=== PATIENT | female | born 1945 | race Caucasian/White ===

== ENCOUNTER 2019-06-08 14:02 | Emergency (ER) | payer MEDICARE, OTHER, SELFPAY ==
[2019-06-08 14:32] VITALS: BP 178/87; PULSE 103; RESP 20; TEMP 37.4; O2SAT 100; BMI 36.6
--- NOTE | 2019-06-08 16:19 | ED_ITS ---
Entered by Nahomy Zamora, acting as scribe for Antonio Hodge DO Jun 08, 2019 14:02 HPI - Ear Problem General: Chief complaint: Ear Stated complaint: fever and earache Time Seen by Provider: 06/08/19 16:18 Source: patient Mode of arrival: ambulatory Limitations: no limitations History of Present Illness: HPI Narrative: 73 yo Female presents to ED with complaint of fever and ear pain. Pt states that she has had a fever, feeling crappy, and had an ear ache for about 10 days. Pt states that she has felt heavy in her chest and felt light headed. Pt states that she is an insulin dependent diabetic. Pt states that she is scheduled to have a sciatica injection on Monday. Pt states that her had the flu in April. MD Complaint: ear pain Location: left ear Duration: constant Severity: moderate Relieving factors: nothing Exacerbating factors: nothing Context: recent illness Discharge from ear: no Associated symptoms: Reports ear or mastoid pain and fever(s) Treatment prior to arrival: none Review of Systems General: Reports: 10 or more systems reviewed and unremarkable except in HPI and below Const: Reports: fever ENMT: Reports: ear pain Resp: Denies: shortness of breath, productive cough or non-productive cough Physical Exam Const: COMMON NORMALS: no apparent distress, average body habitus, oriented x3, no limitations, healthy appearing, alert and well nourished HENMT: COMMON NORMALS: normocephalic, head/scalp atraumatic, hearing grossly normal bilaterally, external ears normal, EAC's normal, TM's normal bilaterally, external nose normal, nasal mucous membranes and turbinates normal, moist oral mucous membranes, oropharynx normal, dentition normal and gingiva normal HEAD & SCALP: normocephalic and atraumatic NOSE: external nose normal and nasal mucous membranes and turbinates normal EXTERNAL EAR: Yes external ears normal EXTERNAL AUDITORY CANAL: EAC's normal TYMPANIC MEMBRANE: TM's normal bilaterally Eye: COMMON NORMALS: PERRL, EOMs intact bilaterally, conjunctivae normal, no scleral icterus, no papilledema, normal visual kay by confrontation and fundi normal bilaterally CONJUNCTIVA: Yes conjunctivae normal PUPIL: Yes PERRL DIRECT OPHTHALMOSCOPY: Yes no papilledema and Yes fundi normal bilaterally Neck/C-Spine: COMMON NORMALS: full ROM, no lymphadenopathy, supple, no meningeal signs, no JVD, thyroid normal and no carotid bruits THYROID: thyroid normal Chest: COMMONS NORMALS: inspection of chest normal and palpation of chest normal Resp: COMMON NORMALS: normal respiratory effort, no retractions, no use of accessory muscles and percussion normal; negative for clear to auscultation bilaterally AUSCULTATION: not clear to auscultation bilaterally and rales (fine) bilateral at the base PERCUSSION: percussion normal Cardio: COMMON NORMALS: no JVD, regular rate, regular rhythm, S1 normal heart sound, S2 normal heart sound, no gallops, no clicks, no murmurs, no rub and peripheral pulses 2+ throughout RATE: regular rate RHYTHM: regular rhythm HEART SOUNDS: S1 normal and S2 normal PERIPHERAL PULSES: pulses 2+ throughout GI: COMMON NORMALS: normal to inspection, nondistended, normoactive bowel sounds, soft to palpation, non-tender, no hepatosplenomegaly, no masses and no bruits PALPATION: Yes soft and Yes no hepatosplenomegaly : COMMON NORMALS: Yes no CVA tenderness and Yes external appearance normal BLADDER/KIDNEY EXAM: Yes no CVA tenderness Back/Pelvis: COMMON NORMALS: no CVA tenderness, thoracic and lumbar spine normal to inspection, no thoracic nor lumbar tenderness, thoraco-lumbar ROM normal and straight leg raise negative bilaterally Extremity: COMMON NORMALS: normal to inspection, full ROM, normal capillary refill, no joint enlargement, no clubbing, cyanosis or edema, no calf tenderness and no pedal edema Neuro: COMMON NORMALS: oriented x3 SENSORIUM/ORIENTATION: Yes alert MENINGEAL SIGNS: Yes no meningeal signs Skin: COMMON NORMALS: no rashes or lesions noted, no wounds, skin turgor normal, no jaundice, no petechiae and no mottling GENERAL SKIN EXAM: no rashes or lesions noted and turgor normal Course Vital Signs: Vital signs: Vital Signs Temperature 99.3 F 06/08/19 14:32 Pulse Rate 93 06/08/19 17:17 Respiratory Rate 20 H 06/08/19 14:32 Blood Pressure 150/106 06/08/19 17:17 Pulse Oximetry 96 06/08/19 17:17 MDM - Ear Lab Data: Labs: Lab Results 06/08/19 06/08/19 06/08/19 Range/Units 16:20 17:21 17:21 WBC 7.8 (4.0-10.0) 10^3/ uL RBC 4.21 (4.1-5.3) 10^6/u L Hgb 13.1 (11.5-15.3) g/dL Hct 40.4 (37.0-47.0) % MCV 96.0 (81-99) fL MCH 31.1 (28.0-34.0) pg MCHC 32.4 (30.0-36.0) g/dL RDW 12.0 L (12.1-15.1) % Plt Count 239 (130-400) 10^3/c mm MPV 8.5 (7.4-10.4) fL Neut % (Auto) 71.3 % Lymph % (Auto) 18.0 % Columbia % (Auto) 7.7 % Eos % (Auto) 2.2 % Baso % (Auto) 0.3 % Neut # (Auto) 5.5 (1.8-7.7) 10^3/u L Lymph # (Auto) 1.4 (0.8-4.8) 10^3/u L Columbia # (Auto) 0.6 (0.2-0.9) 10^3/u L Eos # (Auto) 0.2 (0.0-0.8) 10^3/u L Baso # (Auto) 0.0 (0.0-0.1) 10^3/u L Nucleated RBC % (a uto) 0 % Nucleated RBCs # 0.0 /100WBC Sodium 133 L (136-145) mmol/L Potassium 3.8 (3.5-5.1) mmol/L Chloride 90 L (98-107) mmol/L Carbon Dioxide 28 (22-29) mmol/L Anion Gap 18.8 (5-19) BUN 17 (8-23) mg/dL Creatinine 0.8 (0.5-0.9) mg/dL Glucose 136 H (65-115) mg/dL Calculated Osmolal ity 274 L (285-295) mOsm/k g Lactate (0.5-2.2) mmol/L Calcium 10.1 (8.5-10.5) mg/dL Total Bilirubin 0.3 (0.15-1.2) mg/dL AST 20 (0-32) U/L ALT 16 (0-33) U/L Alkaline Phosphata se 70 (35-105) IU/L NT-Pro-B Natriuret Pep 25 (0-125) pg/mL Total Protein 7.4 (6.6-8.7) g/dL Albumin 4.4 (3.5-5.2) g/dL Globulin 3.0 (1.3-4.6) g/dL Urine Color (Yellow) Urine Appearance (CLEAR) Urine pH (5-7) Ur Specific Gravit y (1.005-1.030) Urine Protein (Negative) Urine Glucose (UA) (Normal) Urine Ketones (Negative) Urine Blood (Negative) Urine Nitrate (Negative) Urine Bilirubin (NEGATIVE) Prot Sulfosalicyli c Acd Urine Urobilinogen (Negative) mg/dL Ur Leukocyte Annabel ase (Negative) Influenza Type A A g Negative (Negative) POC Influenza B Ag Negative (Negative) 06/08/19 06/08/19 Range/Units 17:21 17:55 WBC (4.0-10.0) 10^3/ uL RBC (4.1-5.3) 10^6/u L Hgb (11.5-15.3) g/dL Hct (37.0-47.0) % MCV (81-99) fL MCH (28.0-34.0) pg MCHC (30.0-36.0) g/dL RDW (12.1-15.1) % Plt Count (130-400) 10^3/c mm MPV (7.4-10.4) fL Neut % (Auto) % Lymph % (Auto) % Columbia % (Auto) % Eos % (Auto) % Baso % (Auto) % Neut # (Auto) (1.8-7.7) 10^3/u L Lymph # (Auto) (0.8-4.8) 10^3/u L Columbia # (Auto) (0.2-0.9) 10^3/u L Eos # (Auto) (0.0-0.8) 10^3/u L Baso # (Auto) (0.0-0.1) 10^3/u L Nucleated RBC % (a uto) % Nucleated RBCs # /100WBC Sodium (136-145) mmol/L Potassium (3.5-5.1) mmol/L Chloride (98-107) mmol/L Carbon Dioxide (22-29) mmol/L Anion Gap (5-19) BUN (8-23) mg/dL Creatinine (0.5-0.9) mg/dL Glucose (65-115) mg/dL Calculated Osmolal ity (285-295) mOsm/k g Lactate 1.2 (0.5-2.2) mmol/L Calcium (8.5-10.5) mg/dL Total Bilirubin (0.15-1.2) mg/dL AST (0-32) U/L ALT (0-33) U/L Alkaline Phosphata se (35-105) IU/L NT-Pro-B Natriuret Pep (0-125) pg/mL Total Protein (6.6-8.7) g/dL Albumin (3.5-5.2) g/dL Globulin (1.3-4.6) g/dL Urine Color Yellow (Yellow) Urine Appearance Clear (CLEAR) Urine pH 8 H (5-7) Ur Specific Gravit y 1.005 (1.005-1.030) Urine Protein Neg (Negative) Urine Glucose (UA) Norm (Normal) Urine Ketones 1+ H (Negative) Urine Blood Neg (Negative) Urine Nitrate Negative (Negative) Urine Bilirubin Neg (NEGATIVE) Prot Sulfosalicyli c Acd Negative Urine Urobilinogen Norm (Negative) mg/dL Ur Leukocyte Annabel ase Negative (Negative) Influenza Type A A g (Negative) POC Influenza B Ag (Negative) Imaging Data^: CXR: Radiologist's impression: [place] [address] XRay Report Signed Patient: Sadaf Anderson BUnit #: [id number] : 8Acct#:[id number] Age/Sex: 73 / FADM Date: 06/08/19 Loc: ERRoom/Bed: Attending Dr: Ordering Provider/Ordering MD: Antonio Hodge DO Date of Service: 06/08/19 Procedure(s): XR chest 1V portable [id number] Accession Number(s): [id number] Report Number: [id number] PROCEDURE INFORMATION: Exam: XR Chest, 1 View Exam date and time: 06/08/2019 5:16 PM Age: 73 years old Clinical indication: Dyspnea TECHNIQUE: Imaging protocol: XR of the chest Views: 1 view. COMPARISON: CR Chest 1 [place] [id number] 12/03/2018 3:43 PM FINDINGS: Lungs: Unremarkable. No consolidation. Pleural space: Unremarkable. No pleural effusion. No pneumothorax. Heart/Mediastinum: There is cardiomegaly. Bones/joints: No acute abnormality. Osteopenia and moderate degenerative changes are noted in the spine. There are postoperative changes in the lower cervical spine. XR/XR chest 1V portable [id number] IMPRESSION: No acute findings. Dictated By:Sadaf Kohli Signed By:Jonatan Kohli Date/Time:06/08/191808 DD/ 06 Discharge Plan Discharge Patient Disposition: Home, Self-Care Clinical Impression: Otitis externa Qualifiers: Otitis externa type: unspecified type Chronicity: acute Laterality: bilateral Qualified Code(s): H60.503 - Unspecified acute noninfective otitis externa, bilateral Condition: Stable Prescriptions: New kwvkyhoi-pdvoclxzp-DA 3.5-10,000-1 mg/mL-unit/mL-% drops,suspension 4 drp EAR-BOTH Q6H 7 Days Qty: 10 RF: 0 Discharge Orders: Discharge Order (Routine); Ordered 06/08/19 Ordered By: Antonio Hodge Referrals: Lashae Alvarenga MD [Family Provider] - Coding Level of Care Code ED Manufacturing Software Engineer for Chg Fwd Exam Comprehensive The documentation recorded by the Sera dillon Carmen, accurately reflects the service I personally performed and the decisions made by Naveen bahena Donald P, DO Jun 08, 2019 14:02
[2019-06-08 16:29] VITALS: O2SAT 95
--- NOTE | 2019-06-08 16:56 | XRR_ITS ---
PROCEDURE INFORMATION: Exam: XR Chest, 1 View Exam date and time: 06/08/2019 5:16 PM Age: 73 years old Clinical indication: Dyspnea TECHNIQUE: Imaging protocol: XR of the chest Views: 1 view. COMPARISON: CR Chest 1 [place] [id number] 12/03/2018 3:43 PM FINDINGS: Lungs: Unremarkable. No consolidation. Pleural space: Unremarkable. No pleural effusion. No pneumothorax. Heart/Mediastinum: There is cardiomegaly. Bones/joints: No acute abnormality. Osteopenia and moderate degenerative changes are noted in the spine. There are postoperative changes in the lower cervical spine. XR/XR chest 1V portable [id number] IMPRESSION: No acute findings.
--- NOTE | 2019-06-08 17:09 | PC.NURSE ---
portable xray at bedside
[2019-06-08 17:10] LABS: Influenza A by IFA Negative (Negative); Influenza B by IFA Negative (Negative)
[2019-06-08 17:17] VITALS: BP 150/106; PULSE 93; O2SAT 96
[2019-06-08 17:38] LABS: Basophils % 0.3 %; Eosinophils # 0.2 10^3/uL (0.0-0.8); Eosinophils % 2.2 %; Hematocrit 40.4 % (37.0-47.0); Hemoglobin 13.1 g/dL (11.5-15.3); Lymphocytes # 1.4 10^3/uL (0.8-4.8); Mean Corpuscular HGB Conc 32.4 g/dL (30.0-36.0); Mean Corpuscular Hemoglobin 31.1 pg (28.0-34.0); Mean Platelet Volume 8.5 fL (7.4-10.4); Monocytes # 0.6 10^3/uL (0.2-0.9); Monocytes % 7.7 %; Neutrophils # 5.5 10^3/uL (1.8-7.7); Neutrophils % 71.3 %; Nucleated Red Blood Cells % 0 %; Platelet Count 239 10^3/cmm (130-400); Red Blood Count 4.21 10^6/uL (4.1-5.3); White Blood Count 7.8 10^3/uL (4.0-10.0)
[2019-06-08] MEDS: sodium chloride 0.9% 1,000 ML 999 ML IV (17:54)
[2019-06-08 17:56] LABS: Lactate (Lactic Acid level) 1.2 mmol/L (0.5-2.2)
[2019-06-08 18:05] LABS: Alanine Aminotransferase 16 U/L (0-33); Albumin Level 4.4 g/dL (3.5-5.2); Alkaline Phosphatase 70 IU/L (35-105); Anion Gap 18.8 (5-19); Aspartate Amino Transferase 20 U/L (0-32); Blood Urea Nitrogen 17 mg/dL (8-23); Calcium 10.1 mg/dL (8.5-10.5); Carbon Dioxide 28 mmol/L (22-29); Chloride 90 mmol/L (98-107); Glucose 136 mg/dL (65-115); NT Pro B Type Natriuretic Pept 25 pg/mL (0-125); Osmolality Calculated 274 mOsm/kg (285-295); Potassium 3.8 mmol/L (3.5-5.1); Sodium 133 mmol/L (136-145); Total Bilirubin 0.3 mg/dL (0.15-1.2); Total Protein 7.4 g/dL (6.6-8.7)
[2019-06-08 18:06] LABS: Add Urine Microscopic? NO
[2019-06-08 18:17] LABS: Bilirubin Urine Neg (NEGATIVE); Blood Urine Neg (Negative); Glucose Urine UA Norm (Normal); Ketones Urine 1+ (Negative); Leukocyte Esterase Urine Negative (Negative); Nitrate Urine Negative (Negative); Protein Urine Neg (Negative); Specific Gravity, Urine 1.005 (1.005-1.030); Sulfosalicylic Acid Urine Negative; Urine Appearance Clear (CLEAR); Urine Color Yellow (Yellow); Urobilinogen Urine Norm (Negative); pH Urine 8 (5-7)
[2019-06-08 18:52] VITALS: BP 164/92; PULSE 97; RESP 18; O2SAT 95
== END 2019-06-08 18:53 | disposition home or self-care (01) ==
PROVIDERS: Emergency Provider Family Medicine; Family Provider Family Medicine
DX: H60.90 Unspecified otitis externa, unspecified ear (principal); E11.9 Type 2 diabetes mellitus without complications; Z79.4 Long term (current) use of insulin
CPT/HCPCS: 12345; 36415; 71045; 80053; 81003; 83605; 83880; 85025; 87040; 87804; 96360; 99283; J7030

== ENCOUNTER 2019-07-15 07:44 | Outpatient (CLI) | payer MEDICARE, OTHER, SELFPAY ==
--- NOTE | 2019-07-15 08:12 | CT_ITS ---
WS: [id number] CT NECK WITH CONTRAST HISTORY: OTALGIA, LEFT EAR TECHNIQUE: Contiguous 5 mm axial images are performed through the neck with intravenous contrast. Sag ittal and coronal reformats are also submitted. All CT scans at [facility] use at least o ne of these dose optimization techniques: automated exposure control; mA and/or kV adjustment per pat ient size (includes targeted exams where dose is matched to clinical indication); or iterative recons truction. CONTRAST: CONTRAST: Omnipaque 300; 95 mL IV. DLP: 2577.57 mGycm COMPARISON: None available. Nasopharynx, oropharynx, hypopharynx and larynx are unremarkable. No soft tissue masses or abnormal e nhancement. Torus tubarius and fossa of Rosenmuller and parapharyngeal fat are normal. No significant lymphadenopathy is identified. Tired not well seen. No postsurgical changes. May be markedly atrophied. Parotid and submandibular gl ands are negative. Prior anterior cervical fusion with interbody spacer at C6-7. Mild degenerative changes of the cervic al spine. 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 Intracranial moderate chronic microvascular ischemic changes noted around the ventricles. Orbits and globes are negative. Visualized paranasal sinuses and mastoid air cells are normal. Lung apices are clear. CT/CT neck w con* [id number] IMPRESSION: 1. No neck mass or adenopathy. 2. No abnormality noted near the LEFT internal auditory canal.
[2019-07-15] MEDS: iohexol 300 mg/mL 100 mL Btl IV (08:40)
== END 2019-07-15 07:45 | disposition home or self-care (01) ==
LOC: RADWPI 07:51
PROVIDERS: Family Provider Family Medicine; PCP Family Medicine; Visit Provider Specialist
DX: H92.02 Otalgia, left ear (principal)
CPT/HCPCS: 70491; Q9967

== ENCOUNTER 2019-10-24 12:35 | Outpatient (CLI) | payer MEDICARE, OTHER, SELFPAY ==
--- NOTE | 2019-10-24 12:54 | MM_ITS ---
WS: [id number] BILATERAL DIGITAL SCREENING MAMMOGRAPHY WITH CAD CLINICAL INFORMATION: SCREEN HISTORY: Screening mammogram. No current complaints. COMPARISON: TECHNIQUE: Bilateral CC and MLO views. FINDINGS: Scattered fibroglandular densities bilaterally. No suspicious focal mass, asymmetry, calcifications, or architectural distortion. No evidence of malignancy. Punctate and lucent centered calcifications. MM/[place] [id number] IMPRESSION: BI-RADS: 2-Benign FOLLOW UP: 1 Year Follow-up Recommend return to annual screening mammography.
== END 2019-10-24 12:36 | disposition home or self-care (01) ==
LOC: RADSHAW 12:37
PROVIDERS: PCP Family Medicine; Visit Provider Family Medicine
DX: Z12.31 Encounter for screening mammogram for malignant neoplasm of breast (principal)
CPT/HCPCS: 77067

== ENCOUNTER 2020-02-26 14:47 | Outpatient (CLI) | payer MEDICARE, OTHER, SELFPAY ==
--- NOTE | 2020-02-26 14:54 | XR_ITS ---
WS: [id number] Bone mineral density performed on a IsofluxXA, 02/26/2020 Clinical data: ASYMPTOMATIC MENOPAUSAL STATE Comparison study: DEXA scan, 07/27/2017. Findings: The bone mineral density of the left radius was 0.798 g/sq cm for a young adult T score of -0.9. Measurement of the left hip reveals a bone mineral density of 0.831 g/cm2 with a young adult T score of -1.4. Measurement of the right hip reveals the bone mineral density of 0.841 g/cm2 for young adult T score of -1.3. XR/XR DEXA axial skeleton* [id number] Impression: 1. The bone mineral density of the left radius is normal and the prior study di d not include the measurements of the left radius. 2. The bone mineral density of left hip shows osteopenia which is slightly bett er than the prior study. 3. The bone mineral density of the right hip shows osteopenia which is the same as the prior study.
== END 2020-02-26 14:48 | disposition home or self-care (01) ==
LOC: RADWPI 14:51
PROVIDERS: PCP Family Medicine; Visit Provider Family Medicine
DX: Z78.0 Asymptomatic menopausal state (principal); M85.89 Other specified disorders of bone density and structure, multiple sites
CPT/HCPCS: 77080

== ENCOUNTER 2020-12-16 10:34 | Outpatient (CLI) | payer MEDICARE, OTHER, SELFPAY ==
--- NOTE | 2020-12-16 10:41 | MM_ITS ---
WS: [id number] Bilateral screening digital mammogram, 12/16/2020 Clinical Data: SCREENING Comparison: 10/24/2019 10/09/2018, 09/07/2017, 07/13/2016, 04/30/2015, 04/23/2014, 11/01/2012, 10/25/2011, 10/04. Findings: The breast parenchymal pattern shows glandular tissue. No spiculated masses or clustered calcificatio ns are seen. There are no secondary signs of carcinoma. MM/[place] [id number] Impression: 1. Negative bilateral mammogram unchanged. 2. Recommend annual screening mammograms. BIRADS: 1-Negative FOLLOW UP: 1 Year Follow-up The CAD sample checker was used.
== END 2020-12-16 10:35 | disposition home or self-care (01) ==
LOC: RADSHAW 10:38
PROVIDERS: PCP Family Medicine; Visit Provider Family Medicine
DX: Z12.31 Encounter for screening mammogram for malignant neoplasm of breast (principal)
CPT/HCPCS: 77067

== ENCOUNTER 2021-01-11 10:07 | Emergency (ER) | payer MEDICARE, OTHER, SELFPAY ==
--- NOTE | 2021-01-11 10:11 | XRR_ITS ---
PROCEDURE INFORMATION: Exam: XR Chest Exam date and time: 01/11/2021 10:11 AM Age: 75 years old Clinical indication: Cough and dyspnea; Additional info: Dyspnea/cough TECHNIQUE: Imaging protocol: XR of the chest. Views: 1 view. Total images: 1 COMPARISON: CR XR chest 1V portable [id number] 06/08/2019 5:03 PM FINDINGS: Lungs: Unremarkable. No consolidation. Pleural spaces: Unremarkable. No pleural effusion. No pneumothorax. Heart/Mediastinum: Unremarkable. No cardiomegaly. Bones/joints: Spinal fusion hardware noted. Vertebroplasties now noted. Soft tissues: Soft tissue anchor in the left humeral head. XR/XR chest 1V portable [id number] IMPRESSION: No acute cardiopulmonary process. Radiation Dose CTDIVOL = (mGy): DLP = (mGy-cm)
--- NOTE | 2021-01-11 10:12 | ECG_ITS ---
[facility] Test Date: 2021-01-11 Pat Name: Sadaf Anderson Department: Room: Gender: Female Avp: : 1945 Requested By: Christopher Lester Order Number: [id number] Huy MD: Hyacinth Oliveira M.D. Measurements Intervals Drummond Rate: 105 P: 18 AL: 151 QRS: 4 QRSD: 80 T: 28 QT: 338 QTc: 448 Interpretive Statements SINUS TACHYCARDIA LOW QRS VOLTAGE IN PRECORDIAL LEADS [QRS DEFLECTION < 1.0 mV IN CHEST LEADS] NONSPECIFIC T-WAVE ABNORMALITY Compared to ECG 12/03/2018 18:43:06 T-wave abnormality now present Electronically Signed On 01-11-2021 19:19:02 CDT by Hyacinth Oliveira M.D. [email or web address]
[2021-01-11 10:21] VITALS: BP 129/82; PULSE 105; RESP 19; TEMP 37.2; O2SAT 92; BMI 38.4
--- NOTE | 2021-01-11 10:28 | W.ED.SOB ---
HPI - SOB/Dyspnea General: Chief Complaint: Shortness of Breath/Dyspnea Stated Complaint: SOB W/EXERTION,WEAKNESS,SORE THROAT,BACK PAIN Time Seen by Provider: 01/11/21 10:08 History of Present Illness: HPI Narrative: 75-year-old female presents to the emergency room with shortness of breath weakness sore throat low-grade fever for the last week or more. She is not had any chest pain. Patient is diabetic. She does have a low-grade fever on arrival here today and is mildly hypoxic with sats around 90 on room air she does not usually wear oxygen sats improved to the upper 90s with 2 L/min by nasal cannula. Patient has been vaccinated for Covid was tested a week ago and was negative. MD elicited complaint: shortness of breath and cough Pertinent past history: diabetes Onset (ago): week(s) Context: recent illness Timing: intermittent Severity: mild Exacerbating factors: coughing Relieving factors: nothing Known history of: diabetes Associated symptoms: Deny abdominal pain, chest congestion, chest pain, cough, diaphoresis, dizziness, extremity pain, fever(s), hemoptysis, lightheadedness, myalgias, nausea, orthopnea, palpitations, paresthesias, polydipsia, polyuria, rash, sense of impending doom, syncope or vomiting Treatment prior to arrival: none Review of Systems Const: Denies: fever(s) or diaphoresis ENMT: Denies: throat pain, ear or mastoid pain, nasal discharge or nasal congestion Card: Denies: chest pain, palpitations, lightheadedness, syncope or orthopnea Resp: Denies: hemoptysis or chest congestion GI: Denies: abdominal pain, nausea or vomiting : Denies: flank pain, difficulty voiding, dysuria, urinary frequency or urinary urgency Musc: Denies: extremity pain Skin/Breast: Denies: rash or pruritus Neuro: Denies: dizziness Endo: Denies: polyuria or polydipsia Physical Exam Const: COMMON NORMALS: no acute distress GENERAL APPEARANCE: cooperative and comfortable ORIENTATION/CONSCIOUSNESS: Yes awake, Yes oriented to person, Yes oriented to place and Yes oriented to time HENMT: COMMON NORMALS: normocephalic, atraumatic and hearing grossly normal bilaterally HEAD & SCALP: normocephalic and atraumatic Neck/C-Spine: COMMON NORMALS: no JVD Resp: COMMON NORMALS: normal respiratory effort, No retractions, No use of accessory muscles and clear to auscultation bilaterally AUSCULTATION: clear to auscultation bilaterally Cardio: COMMON NORMALS: no JVD, regular rate, regular rhythm and No murmurs present (Cardio) RATE: regular rate RHYTHM: regular rhythm GI: COMMON NORMALS: Soft to palpation and No hepatosplenomegaly present AUSCULTATION: Yes normoactive bowel sounds PALPATION: Yes Soft to palpation, No Tenderness to palpation present (GI), No Guarding due to palpation present (GI) and Yes No hepatosplenomegaly present Extremity: COMMON NORMALS: normal to inspection, capillary refill normal, no clubbing, cyanosis or edema, no calf tenderness and no pedal edema Neuro: SENSORIUM/ORIENTATION: Yes oriented to person, Yes oriented to place and Yes oriented to time Skin: COMMON NORMALS: no rashes or lesions noted GENERAL SKIN EXAM: no rashes or lesions noted Course Vital Signs: Vital signs: Vital Signs Temperature 99.0 F 01/11/21 10:21 Pulse Rate 97 01/11/21 12:43 Respiratory Rate 20 H 01/11/21 14:13 Blood Pressure 150/58 01/11/21 14:13 Pulse Oximetry 94 01/11/21 14:24 MDM - SOB/Dyspnea MDM Narrative: Medical decision making narrative: Labs and imaging completed reviewed on the chart no significant findings. Home oxygen test patient maintain sats in the low 90s I think that is her baseline. Awaiting a PCR if the Covid PCR is negative then she will need a Lexiscan sestamibi stress test return if she has problems. Lab Data: Labs: Lab Results 01/11/21 01/11/21 01/11/21 10:35 10:35 10:35 WBC 11.7 10^3/uL H 10 ^3/uL (4.0-10.0) RBC 3.78 10^6/uL L 10 ^6/uL (4.1-5.3) Hgb 12.3 g/dL g/dL (11.5-15.3) Hct 38.4 % % (37.0-47.0) MCV 101.6 fl H fl (81-99) MCH 32.5 pg pg (28.0-34.0) MCHC 32.0 g/dL g/dL (30.0-36.0) RDW 12.9 % % (12.1-15.1) Plt Count 213 10^3/cmm 10^3 /cmm (130-400) MPV 8.4 fL fL (7.4-10.4) Neut % (Auto) 47.4 % % Lymph % (Auto) 37.9 % % [place] % (Auto) 9.5 % % Eos % (Auto) 1.9 % % Baso % (Auto) 0.6 % % Neut # (Auto) 5.57 10^3/uL 10^3 /uL (1.8-7.7) Lymph # (Auto) 4.5 10^3/uL 10^3/ uL (0.8-4.8) [place] # (Auto) 1.1 10^3/uL H 10^ 3/uL (0.2-0.9) Eos # (Auto) 0.2 10^3/uL 10^3/ uL (0.0-0.8) Baso # (Auto) 0.1 10^3/uL 10^3/ uL (0.0-0.1) Nucleated RBC % (a uto) 0 % % Nucleated RBCs # 0.0 /100WBC /100W BC Specimen Type Sample Site ABG pH ABG pCO2 ABG pO2 ABG HCO3 ABG O2 Saturation ABG Base Excess Marlon Test A-a O2 Gradient Hematocrit Hgb O2 Saturation Carboxyhemoglobin Methemoglobin Total Hemoglobin Ionized Calcium O2 Delivery Device O2 Liters/Min FiO2 Satellite Communications Engineer ID Sodium 138 mmol/L mmol/L (136-145) Potassium 4.1 mmol/L mmol/L (3.5-5.1) Chloride 99 mmol/L mmol/L (98-107) Carbon Dioxide 25 mmol/L mmol/L (22-29) Anion Gap 18.1 (5-19) BUN 11 mg/dL mg/dL (8-23) Creatinine 0.5 mg/dL mg/dL (0.5-0.9) GFR Calculation Not Reportable Glucose 114 mg/dL mg/dL (65-115) Calculated Osmolal ity 286 mOsm/kg mOsm/ kg (285-295) Calcium 9.1 mg/dL mg/dL (8.5-10.5) Total Bilirubin 0.2 mg/dL mg/dL (0.15-1.2) AST 23 U/L U/L (0-32) ALT 28 U/L U/L (0-33) Alkaline Phosphata se 69 IU/L IU/L (35-105) Creatine Kinase 49 U/L U/L (26-192) Troponin T Baselin e 13 ng/L H ng/L (0-10) Troponin T 120 Min [place] Troponin T Total Protein 6.4 g/dL L g/dL (6.6-8.7) Albumin 3.6 g/dL g/dL (3.5-5.2) Globulin 2.8 g/dL g/dL (1.3-4.6) Urine Color Urine Appearance Urine pH Ur Specific Gravit y Urine Protein Urine Glucose (UA) Urine Ketones Urine Blood Urine Nitrate Urine Bilirubin Urine Urobilinogen Ur Leukocyte Annabel ase SARS-CoV-2 Ag (Rap id) 01/11/21 01/11/21 01/11/21 10:45 10:45 11:57 WBC RBC Hgb Hct MCV MCH MCHC RDW Plt Count MPV Neut % (Auto) Lymph % (Auto) [place] % (Auto) Eos % (Auto) Baso % (Auto) Neut # (Auto) Lymph # (Auto) [place] # (Auto) Eos # (Auto) Baso # (Auto) Nucleated RBC % (a uto) Nucleated RBCs # Specimen Type Arterial Sample Site Radial, right ABG pH 7.44 (7.35-7.45) ABG pCO2 45.4 mmHg H mmHg (35-45) ABG pO2 92.0 mmHg mmHg (80.0-100.0) ABG HCO3 31.0 mmol/L H mmo l/L (22-26) ABG O2 Saturation 95.6 ABG Base Excess 6.1 mmol/L H mmol /L (-2.0-2.0) Marlon Test Pos A-a O2 Gradient 6.8 mmHg mmHg (5-10) Hematocrit 37.8 % % (37-47) Hgb O2 Saturation 95.2 % % (95-100) Carboxyhemoglobin < 0.0 %THgb L %TH gb (0.4-20.1) Methemoglobin 0.5 % % (0.4-1.5) Total Hemoglobin 12.3 g/dL g/dL (12-16) Ionized Calcium 1.2 mmol/L mmol/L (1.1-1.4) O2 Delivery Device Nc O2 Liters/Min 2.0 % % FiO2 28.0 % % Satellite Communications Engineer ID [place] Sodium 140.0 mmol/L mmol /L (131-143) Potassium 3.9 mmol/L mmol/L (3.5-5.0) Chloride Carbon Dioxide Anion Gap BUN Creatinine GFR Calculation Glucose 119.0 mg/dL H mg/ dL (70-115) Calculated Osmolal ity Calcium Total Bilirubin AST ALT Alkaline Phosphata se Creatine Kinase Troponin T Baselin e Troponin T 120 Min [place] Troponin T Total Protein Albumin Globulin Urine Color Yellow (Yellow) Urine Appearance Clear (CLEAR) Urine pH 5 (5-7) Ur Specific Gravit y 1.020 (1.005-1.030) Urine Protein Neg (Negative) Urine Glucose (UA) Norm (Normal) Urine Ketones 2+ H (Negative) Urine Blood Neg (Negative) Urine Nitrate Negative (Negative) Urine Bilirubin Neg (Negative) Urine Urobilinogen Norm mg/dL mg/dL (Negative) Ur Leukocyte Annabel ase Negative (Negative) SARS-CoV-2 Ag (Rap id) Negative (Negative) 01/11/21 12:50 WBC RBC Hgb Hct MCV MCH MCHC RDW Plt Count MPV Neut % (Auto) Lymph % (Auto) [place] % (Auto) Eos % (Auto) Baso % (Auto) Neut # (Auto) Lymph # (Auto) [place] # (Auto) Eos # (Auto) Baso # (Auto) Nucleated RBC % (a uto) Nucleated RBCs # Specimen Type Sample Site ABG pH ABG pCO2 ABG pO2 ABG HCO3 ABG O2 Saturation ABG Base Excess Marlon Test A-a O2 Gradient Hematocrit Hgb O2 Saturation Carboxyhemoglobin Methemoglobin Total Hemoglobin Ionized Calcium O2 Delivery Device O2 Liters/Min FiO2 Satellite Communications Engineer ID Sodium Potassium Chloride Carbon Dioxide Anion Gap BUN Creatinine GFR Calculation Glucose Calculated Osmolal ity Calcium Total Bilirubin AST ALT Alkaline Phosphata se Creatine Kinase Troponin T Baselin e Troponin T 120 Min [place] 12.00 ng/L H ng/L (0-10) Delta Troponin T -1.00 ABS# L ABS# (0-10) Total Protein Albumin Globulin Urine Color Urine Appearance Urine pH Ur Specific Gravit y Urine Protein Urine Glucose (UA) Urine Ketones Urine Blood Urine Nitrate Urine Bilirubin Urine Urobilinogen Ur Leukocyte Annabel ase SARS-CoV-2 Ag (Rap id) Discharge Plan Discharge Patient Disposition: Home Clinical Impression: Viral URI Condition: Stable Prescriptions: No Action tizanidine 4 mg tablet 4 mg PO BEDTIME RF: 0 levothyroxine 300 mcg tablet 300 mcg PO QAM RF: 0 ondansetron HCl 4 mg tablet 4 mg PO Q6H PRN (Reason: Nausea And Vomiting) RF: 0 hydrocodone-acetaminophen 10-325 mg tablet 1 tab PO QID PRN (Reason: Pain) RF: 0 Aspir-81 81 mg Tablet,Delayed Release (Dr/Ec) 81 mg PO BEDTIME RF: 0 pramipexole 0.5 mg tablet 0.5 mg PO BEDTIME RF: 0 FeroSul 325 mg (65 mg iron) tablet 325 mg PO QAM RF: 0 Nexium 40 mg capsule,delayed release(DR/EC) 40 mg PO QAM RF: 0 niacin 500 mg Tablet 2,000 mg PO BEDTIME RF: 0 hydrochlorothiazide 25 mg tablet 25 mg PO QAM RF: 0 metformin 500 mg tablet extended release 24 hr 500 mg PO BID RF: 0 amoxicillin-pot clavulanate 875-125 mg tablet 1 tab PO BID RF: 0 Novolog Flexpen U-100 Insulin 100 unit/mL (3 mL) insulin pen See Rx Instructions .ROUTE .COMPLEX RF: 0 duloxetine 20 mg capsule,delayed release(DR/EC) 20 mg PO QAM RF: 0 Levemir U-100 Insulin 100 unit/mL solution 27 unit SUBCUT BEDTIME RF: 0 Prolia 60 mg/mL Syringe 60 mg SUBCUT .EVERY 6 MONTHS RF: 0 Vitamin D3 1 cap PO QAM RF: 0 Discharge Orders: Discharge ED (Routine); Ordered 01/11/21 Ordered By: Christopher Kaba Referrals: Lashae Alvarenga MD [Primary Care Provider] - Discharge Diet: Usual diet Discharge Activity: Increase activity as tolerated Patient Instructions: Opioid Safety Activity Restrictions/Additional Instructions: Covid PCR test is pending. If the Covid test is negative we will have case management set you up for cardiac stress test if it is positive no further work-up would be required at this time. Return to the emergency room if you have further problems. Coding Level of Care Code ED Publications Sales Representative for Sal Monet
--- NOTE | 2021-01-11 10:45 | PC.PHAR ---
PT STATES SHE TAKES CARE OF HER OWN MEDICATIONS-RX FILLED ON 08/31/20 50D/S FOR NOVOLOG FLEXPEN 15 UNITS AM, 15 UNITS AT NOON, 14 UNITS AT SUPPER PLUS SLIDING SCALE MAX 80 UNITS A DAY-PT STATES SHE USES THE WAY IT IS ENTERED 16 UNITS QAM,16 UNITS AT NOON,16 UNITS AT SUPPER PLUS SLIDING SCALE-PT STATES SHE USES [facility] 27 UNITS HS RX FILLED ON 12/14/20 40D/S FOR 25 UNITS DAILY-NOTES ARE MADE IN THE PHARMACY COMMENTS
[2021-01-11 10:48] LABS: Basophils # 0.1 10^3/uL (0.0-0.1); Basophils % 0.6 %; Eosinophils # 0.2 10^3/uL (0.0-0.8); Eosinophils % 1.9 %; Hematocrit 38.4 % (37.0-47.0); Hemoglobin 12.3 g/dL (11.5-15.3); Lymphocytes # 4.5 10^3/uL (0.8-4.8); Lymphocytes % 37.9 %; Mean Corpuscular Hemoglobin 32.5 pg (28.0-34.0); Mean Corpuscular Volume 101.6 fl (81-99); Mean Platelet Volume 8.4 fL (7.4-10.4); Monocytes # 1.1 10^3/uL (0.2-0.9); Monocytes % 9.5 %; Neutrophils # 5.57 10^3/uL (1.8-7.7); Neutrophils % 47.4 %; Nucleated Red Blood Cells % 0 %; Platelet Count 213 10^3/cmm (130-400); Red Blood Count 3.78 10^6/uL (4.1-5.3); Red Cell Distribution Width 12.9 % (12.1-15.1); White Blood Count 11.7 10^3/uL (4.0-10.0)
[2021-01-11 10:56] LABS: ABG PCO2 45.4 mmHg (35-45); ABG PH Result 7.44 (7.35-7.45); Alveolar-Arterial Oxygen Gradi 6.8 mmHg (5-10); Arterial Blood Gas Hematocrit 37.8 % (37-47); Base Excess ABG 6.1 mmol/L (-2.0-2.0); Blood Gas Allen Test Pos; Blood Gas Operator Identificat MONRO; Blood Gas Sample Site Radial, right; Blood Gas Sample Type Arterial; Carboxyhemoglobin < 0.0 %THgb (0.4-20.1); HGB O2 Sat 95.2 % (95-100); Ionized Calcium Level - ABG 1.2 mmol/L (1.1-1.4); Methemoglobin 0.5 % (0.4-1.5); Oxygen Device NC; Oxygen Saturation ABG 95.6; Potassium Level - ABG 3.9 mmol/L (3.5-5.0); Total Hemoglobin 12.3 g/dL (12-16)
[2021-01-11 11:25] LABS: Slide Review Slide Review Perform
[2021-01-11 11:27] LABS: Troponin(5th) Baseline 13 ng/L (0-10)
[2021-01-11 11:31] VITALS: BP 149/82; PULSE 99; RESP 22; O2SAT 95
[2021-01-11 11:39] LABS: Alanine Aminotransferase 28 U/L (0-33); Albumin Level 3.6 g/dL (3.5-5.2); Alkaline Phosphatase 69 IU/L (35-105); Anion Gap 18.1 (5-19); Aspartate Amino Transferase 23 U/L (0-32); Blood Urea Nitrogen 11 mg/dL (8-23); Calcium 9.1 mg/dL (8.5-10.5); Carbon Dioxide 25 mmol/L (22-29); Chloride 99 mmol/L (98-107); Creatine Phosphokinase 49 U/L (26-192); Globulin 2.8 g/dL (1.3-4.6); Glucose 114 mg/dL (65-115); Osmolality Calculated 286 mOsm/kg (285-295); Potassium 4.1 mmol/L (3.5-5.1); Sodium 138 mmol/L (136-145); Total Bilirubin 0.2 mg/dL (0.15-1.2); Total Protein 6.4 g/dL (6.6-8.7)
--- NOTE | 2021-01-11 11:48 | CT_ITS ---
WS: [id number] CTA OF THE CHEST WITH PULMONARY EMBOLISM PROTOCOL TECHNIQUE: High-resolution contrast enhanced CTA of the chest with coronal and sagittal reformatted i mages with pulmonary embolism protocol. MIP images are also reviewed. CLINICAL INFORMATION: hypoxia COMPARISON: CTA 9 9018 DLP: 554.[address] scans at [facility] use at least one of these dose optimization techniques: automated e xposure control; mA and/or kV adjustment per patient size (includes targeted exams where dose is matc hed to clinical indication); or iterative reconstruction. FINDINGS: Moderate chronic emphysematous changes. No acute pulmonary infiltrates. Slight bibasilar at electasis. Proximal main pulmonary arteries are normal. Segmental and subsegmental pulmonary arteries are normal. No evidence of pulmonary embolus. Aortic calcification. Normal caliber thoracic aorta. N o mediastinal or hilar lymphadenopathy. No axillary lymphadenopathy. Adrenal glands are normal. Fatty atrophy of the pancreas. Moderate esophageal hiatal hernia. Vertebroplasty changes at T11, T12 and L1 new from previous. Pedicle screw fixation in the lumbar spi ne partially visualized. Moderate thoracic kyphosis. CT/CT angio chest PE protcl [id number] IMPRESSION: 1. No evidence for pulmonary embolus. 2. Chronic emphysematous changes. No acute pulmonary infiltrates. 3. No focal pneumonia or pleural fluid. 4. Moderate esophageal hiatal hernia. 5. Vertebroplasty changes at T11-L1 are new from previous.
--- NOTE | 2021-01-11 12:12 | ECG_ITS ---
[facility] Test Date: 2021-01-11 Pat Name: Sadaf Anderson Department: Room: Gender: Female [employer] St[employer]: : 1945 Requested By: Christopher Lester Order Number: [id number] Huy MD: Hyacinth Oliveira M.D. Measurements Intervals [place] Rate: 98 P: 9 IA: 137 QRS: 1 QRSD: 82 T: 23 QT: 352 QTc: 450 Interpretive Statements SINUS RHYTHM LOW QRS VOLTAGE IN PRECORDIAL LEADS [QRS DEFLECTION < 1.0 mV IN CHEST LEADS] Compared to ECG 01/11/2021 10:22:12 Sinus tachycardia no longer present T-wave abnormality no longer present Electronically Signed On 01-11-2021 19:24:42 CDT by Hyacinth Oliveira M.D. [id number]
[2021-01-11 12:13] LABS: Add Urine Microscopic? NO; Charge for UA Resulting for Rev
--- NOTE | 2021-01-11 12:16 | PC.NURSE ---
Attempted to obtain 2 hour repeat EKG and troponin, but pt being taken to CT.
[2021-01-11 12:22] LABS: Bilirubin Urine Neg (Negative); Blood Urine Neg (Negative); Glucose Urine UA Norm (Normal); Ketones Urine 2+ (Negative); Leukocyte Esterase Urine Negative (Negative); Nitrate Urine Negative (Negative); Protein Urine Neg (Negative); Urine Appearance Clear (CLEAR); Urine Color Yellow (Yellow); Urobilinogen Urine Norm (Negative); pH Urine 5 (5-7)
[2021-01-11] MEDS: iohexol 350 mg/mL 100 mL Btl IV (12:25)
[2021-01-11 12:35] LABS: SARS Covid-2 Antigen Negative (Negative)
[2021-01-11 12:43] VITALS: BP 166/72; PULSE 97; RESP 17; O2SAT 100
[2021-01-11] MEDS: HYDROcodone-acetaminophen 10-325 mg Tablet 1 TAB PO (14:01)
[2021-01-11 14:13] VITALS: BP 150/58; RESP 20; O2SAT 95
[2021-01-11 14:24] VITALS: O2SAT 93; O2SAT 94
[2021-01-12 14:15] LABS: Coronavirus Test Green County Not Detected
--- NOTE | 2021-01-12 16:45 | PC.NURSE ---
Informed at 1562, she is Negative for COVID
--- NOTE | 2021-01-14 13:31 | DCPLANNER ---
retail store manager had message to schedule an outpatient stress test for patient if COVID was negative. Patients test was negative, telehealth case manager faxed signed order to centralized scheduling, who will call patient with appointment information.
--- NOTE | 2021-01-28 14:57 | DCPLANNER ---
Patient has an outpatient stress test scheduled for Monday, February 03, 2021 at 10:00. Centralized scheduling will call patient with appointment information.
--- NOTE | 2021-04-18 16:00 | DCPLANNER ---
Patient had an outpatient stress test - patient did attend appointment.
== END 2021-01-11 15:00 | disposition home or self-care (01) ==
PROVIDERS: Emergency Provider Family Medicine; PCP Family Medicine
DX: J06.9 Acute upper respiratory infection, unspecified (principal); Z79.84 Long term (current) use of oral hypoglycemic drugs; Z79.82 Long term (current) use of aspirin; Z79.4 Long term (current) use of insulin; Z20.822 Contact with and (suspected) exposure to COVID-19
CPT/HCPCS: 36600; 71045; 71275; 80051; 80053; 81003; 82330; 82550; 82805; 84484; 85025; 87426; 87635; 93005; 99284; Q9967

== ENCOUNTER 2021-02-03 07:05 | Outpatient (CLI) | payer MEDICARE, OTHER, SELFPAY ==
--- NOTE | 2021-02-03 07:48 | ECG_ITS ---
[facility] Test Date: 2021-02-03 Pat Name: Sadaf Anderson Department: Room: Gender: Female Interrelated Special Education Teacher: Day Gottlieb : 1945 Requested By: Christopher Lester Order Number: [id number] Huy MD: Hyacinth Oliveira M.D. Interpretive Statements NAME OF STUDY: LEXISCAN SESTAMIBI STRESS TEST INDICATION: Chest Pain PROCEDURE: At the baseline, the blood pressure was 144/67 mmHg with a heart rate of 89 bpm. The electrocardiogram showed normal sinus rhythm, normal axis. Poor anterior R wave progression. Low QRS voltage in precordial leads. The Lexiscan was infused over a period of 20 seconds. A total of 0.4 milligrams of Lexiscan was infused. The stress phase was continued for a total of 5 minutes. Heart rate at the end of the stress phase was 101 bpm with a blood pressure of 148/73 mmHg. The EKG at the peak infusion revealed sinus tachycardia at 101 bpm with no significant [address]-T wave changes. Sestamibi was injected 20 seconds after the Lexiscan infusion. Blood pressure at the end of the recovery phase was 148/73 mmHg with a heart rate of 100 beats per minute. CONCLUSION: 1. No significant EKG changes with the LexiScan infusion. 2. No LexiScan induced chest pain or cardiac arrhythmia. 3. Normal blood pressure and heart rate response. 4. Sestamibi/sestamibi perfusion scan pending; see separate report. Electronically Signed On 02-03-2021 18:30:16 STOCK SPECULATOR by Hyacinth Oliveira M.D. [id number]
--- NOTE | 2021-02-03 07:48 | NMCV_ITS ---
NM leslie perf SPECT r/s* [id number] Sadaf Anderson Age: 75 Gender: F : 1945 Exam Date: 02/03/2021 08:39 Ordering Phys: Christopher Kaba DO Technologist: WINSOME Mcintyre Exam Location: [facility] Indications: CHEST PAIN STRESS TEST Please see separate stress test report in [facility] for full findings IMAGE PROTOCOL Rest/Stress 1 Lexiscan Day Radiopharmaceutical Dose (mCi) Administration Site Administered by Rest: Tc-99m 10.6 IV WINSOME Arizmendi Sestamibi Stress:Tc-99m 32.6 IV WINSOME Arizmendi Sestamibi Rest: 03-Feb-2021 60 Discovery 630 Stress: 03-Feb-2021 30 Discovery 630 0.4mg Lexiscan. Supine position only as patient was unable to lay prone. SPECT RESULTS Technical Quality: Excellent Raw Data Analysis: Normal Image Corrections: No attenuation or motion correction applied Summed Stress Score: 2 Summed Rest Score: 0 Summed Difference Score: 2 PERFUSION FINDINGS Small sized perfusion abnormality of mild severity of mid inferolateral wall on stress images. FUNCTIONAL RESULTS (calculated via Gated SPECT) Stress Image LV EF (%): 80 Stress EDV (mL):66 TID: 1.42 Stress ESV (mL):13 FUNCTIONAL FINDINGS: The left ventricle is dilated with stress. Transient Ischemia Dilatation of 1.4. The left ventricular ejection fraction is hyperdynamic with a value of 80%. There is hyperdynamic left ventricular wall thickening with no regional wall motion abnormality. IMPRESSIONS 1. Small sized reversible ischemia in mid inferolateral wall. 2. The left ventricular ejection fraction is hyperdynamic with a value of 80%. 3. There is hyperdynamic left ventricular wall thickening with no regional wall motion abnormality. 4. Transient ischemic dilation index increased at 1.4. 5. This may represent multivessel coronary artery disease. Clinical correlation is advised. Hyacinth Oliveira MD (Electronically Signed) Final Date: 03 February 2021 18:36 S
[2021-02-03 07:49] VITALS: BMI 36.6
[2021-02-03] MEDS: regadenoson 0.4 Mg/5 ml Syringe IVP (09:36)
[2021-02-03 09:37] VITALS: BP 134/76; PULSE 100
== END 2021-02-03 07:06 | disposition home or self-care (01) ==
LOC: CDL 07:08
PROVIDERS: PCP Family Medicine; Visit Provider Family Medicine
DX: R07.9 Chest pain, unspecified (principal); R94.39 Abnormal result of other cardiovascular function study
CPT/HCPCS: 78452; 93017; A9500; J2785

== ENCOUNTER 2021-05-05 12:33 | Outpatient (CLI) | payer MEDICARE, OTHER, SELFPAY ==
--- NOTE | 2021-05-05 | USCV_ITS ---
Transthoracic Echo Sadaf Anderson Age: 75 Gender: F : 1945 Exam Date: 05/05/2021 13:15 Ordering Phys: Chip Riley MD ([email or web address]) Technologist: CONRAD Exam Location: [facility] [place] Indication: dyspnea BP: 140 / 80 HR: 70 Rhythm: Sinus Technical Quality: Technically difficult study MEASUREMENTS (Male / Female) Normal Values 2D ECHO LV Diastolic Diameter PLAX 4.3 cm 4.2 - 5.9 / 3.9 - 5.3 cm LV Systolic Diameter PLAX 2.9 cm IVS Diastolic Thickness 0.8 cm 0.6 - 1.0 / 0.6 - 0.9 cm IVS Systolic Thickness 1.4 cm LVPW Diastolic Thickness 1.1 cm 0.6 - 1.0 / 0.6 - 0.9 cm LVPW Systolic Thickness 1.2 cm LVOT Diameter 2.0 cm LV Ejection Fraction 2D Teich 63.4 % LA Diameter 3.1 cm LA Width 3.2 cm LA Height 6.4 cm Aorta at Sinotubular Diameter 2.6 cm M-MODE Aortic Annulus Diameter 2.9 cm LA Ao Ratio MM 1.3 MV E Point Septal Separation 0.3 cm DOPPLER AV Peak Velocity 151.0 cm/s LVOT Peak Velocity 88.0 cm/s AV Area Cont Eq vti 1.5 cm squared AV Area Cont Eq pk 1.7 cm squared MV Peak Velocity 80.0 cm/s MV Area PHT 4.0 cm squared Mitral E to A Ratio 0.7 MV E' Velocity 32.5 cm/s Mitral E to MV E' Ratio 6.5 Mitral E to LV E' Lateral Ratio 6.4 Mitral E to LV E' Septal Ratio 6.8 TR Peak Velocity 122.3 cm/s TR Peak Gradient 6.0 mmHg TR Mean Velocity 84.5 cm/s TR Mean Gradient 3.0 mmHg TR Velocity Time Integral 21.1 cm Right Atrial Pressure 5.0 mmHg Pulmonary Artery Systolic Pressu 11.0 mmHg PV Peak Velocity 98.0 cm/s RV Acceleration Time 0.1 s RV Ejection Time 0.3 s RV AcT/ET 0.4 FINDINGS Left Ventricle Normal left ventricular cavity size. Normal left ventricular systolic function. No regional wall motion abnormalities. Left ventricular ejection fraction is estimated at 60%. Grade I/IV diastolic dysfunction (abnormal relaxation filling pattern), normal to mildly elevated filling pressures. Right Ventricle The right ventricle is normal in size and function. Right Atrium The right atrium is normal in size. Left Atrium The left atrium is normal in size. Mitral Valve Moderately thickened mitral valve. Moderate mitral annular calcification. No mitral valve stenosis. No mitral valve regurgitation. Aortic Valve Moderate aortic valve calcification. No aortic valve stenosis. Trace aortic valve regurgitation. Tricuspid Valve Structurally normal tricuspid valve without significant stenosis or regurgitation. Pulmonary artery systolic pressure is normal. Pulmonic Valve Structurally normal pulmonic valve without significant stenosis. There is no pulmonic regurgitation. Pericardium Normal pericardium without effusion. Aorta Normal ascending aorta dimension. CONCLUSIONS 1-Normal left ventricular cavity size. Normal left ventricular systolic function. No regional wall motion abnormalities. Left ventricular ejection fraction is estimated at 60%. Grade I/IV diastolic dysfunction (abnormal relaxation filling pattern), normal to mildly elevated filling pressures. 2-Moderate aortic valve calcification. No aortic valve stenosis. Trace aortic valve regurgitation. 3-Moderately thickened mitral valve. Moderate mitral annular calcification. No mitral valve stenosis. No mitral valve regurgitation. 4-There is no pericardial effusion. 5-Pulmonary artery systolic pressure is within normal limits. 6-Right atrial pressure is around 5 mm of mercury. 7-There are no prior echocardiogram studies to compare. Luis Bowers MD (Electronically Signed) Final Date: 05 May 2021 20:22 S
== END 2021-05-05 12:34 | disposition home or self-care (01) ==
LOC: RAD 12:43
PROVIDERS: PCP Family Medicine; Visit Provider Internal Medicine Cardiovascular Disease
DX: R06.00 Dyspnea, unspecified (principal); I70.0 Atherosclerosis of aorta; I05.9 Rheumatic mitral valve disease, unspecified
CPT/HCPCS: 93306

== ENCOUNTER → 2021-06-02 13:25 | Outpatient (BNVA) | payer MEDICARE, OTHER, SELFPAY | PROVIDERS: PCP Family Medicine; Visit Provider Internal Medicine Cardiovascular Disease | DX: R06.02 Shortness of breath (principal); I10 Essential (primary) hypertension; R94.39 Abnormal result of other cardiovascular function study; Z86.39 Personal history of other endocrine, nutritional and metabolic disease; E03.9 Hypothyroidism, unspecified; R00.0 Tachycardia, unspecified; Z87.891 Personal history of nicotine dependence | CPT/HCPCS: 99214 ==

== ENCOUNTER → 2022-01-03 13:40 | Outpatient (BNVA) | payer MEDICARE, OTHER, SELFPAY | PROVIDERS: PCP Family Medicine; Visit Provider Internal Medicine Cardiovascular Disease | DX: R94.39 Abnormal result of other cardiovascular function study (principal); R00.0 Tachycardia, unspecified; E03.9 Hypothyroidism, unspecified; I10 Essential (primary) hypertension; E11.9 Type 2 diabetes mellitus without complications; Z79.4 Long term (current) use of insulin; Z79.84 Long term (current) use of oral hypoglycemic drugs; Z87.891 Personal history of nicotine dependence | CPT/HCPCS: 99214 ==

== ENCOUNTER 2022-05-20 13:31 | Emergency (ER) | payer MEDICARE, OTHER, SELFPAY ==
[2022-05-20 13:39] VITALS: BMI 36.0
[2022-05-20 13:43] VITALS: BP 150/72; PULSE 100; RESP 18; TEMP 36.6; O2SAT 95
--- NOTE | 2022-05-20 15:28 | XR_ITS ---
WS: [id number] Exam: XR knee LT 3V* [id number] Date/Time of Exam: 05/20/2022 3:28 PM Reason For Exam: FALL/PAIN There is a subchondral defect involving the medial tibial plateau. The remainder of the knee is unrem arkable. The joint compartments are well-maintained. No significant joint effusion. XR/XR knee LT 3V* [id number] IMPRESSION: 1. Small subchondral bone defect involving the medial tibial plateau. This migh t represent sequela from an old injury, osteochondritis dissecans or recent sub chondral bone fracture. There there is high clinical suspicion for acute fracture, CT should be conside red for further workup.
--- NOTE | 2022-05-20 15:30 | ED_ITS ---
HPI - Extremity Injury (Lower) General: Chief Complaint: Fall Stated Complaint: fall, left knee injury Time Seen by Provider: 05/20/22 14:42 Source: patient Mode of arrival: wheelchair Limitations: no limitations History of Present Illness: Patient is a 76-year-old female presents to ED today for evaluation of a left knee injury that she sustained yesterday after she accidentally tripped while using her wheeled walker. She states she fell directly onto the knee. Patient states she has had minimal weightbearing on the extremity secondary to discomfort since. She denies any other injuries during the fall. complaint: knee injury Onset (ago): day(s) (yesterday) Place: home Severity: moderate Relieving factors: immobilization Exacerbating factors: weight bearing, movement and palpation Context: fall and direct blow Other symptoms: none Review of Systems Card: Denies: chest pain, palpitations or lightheadedness Resp: Denies: dyspnea Musc: Reports: joint pain (L knee); Denies: neck pain, back pain, extremity pain, extremity swelling or joint swelling Neuro: Denies: headache(s), numbness in extremities, weakness in extremities or sensory changes PFSH ED 2 PFSH: Medical History Abnormal stress test Anemia Aphthous ulcer of mouth Arthralgia Bilateral leg cramps Dyspnea Fatigue Fibromyalgia GERD (gastroesophageal reflux disease) Hiatal hernia Hx of type 2 diabetes mellitus Hypertension Hypothyroidism Restless leg syndrome Tachycardia Vitamin D deficiency Weakness Surgical History History of back surgery x 2 History of carpal tunnel release History of repair of hiatal hernia History of surgery on wrist Hx of neck surgery Hx of repair of left rotator cuff Hx of tubal ligation Hx of varicose vein ligation Family History Father Diabetes CAD (coronary artery disease) Hypertension Brother Diabetes Suicide Grandfather Diabetes CAD (coronary artery disease) Grandmother Diabetes CAD (coronary artery disease) Family/Other Diabetes CAD (coronary artery disease) Mother CAD (coronary artery disease) Denies family history of Clotting disorder Dementia Chronic kidney disease (CKD) Anesthesia complication Bleeding disorder Lung disease Cancer Stroke Social History Smoking and tobacco status: former smoker Alcohol intake: never Physical Exam Const: COMMON NORMALS: no acute distress, patient oriented x3, no limitations, alert and well nourished GENERAL APPEARANCE: cooperative ORIENT ATION/CONSCIOUSNESS: Yes awake, Yes oriented to person, Yes oriented to place and Yes oriented to time HENMT: COMMON NORMALS: normocephalic and atraumatic HEAD & SCALP: normal to inspection, normocephalic and atraumatic Chest: COMMONS NORMALS: normal inspection of the chest and normal palpation of entire chest wall Resp: COMMON NORMALS: normal respiratory effort Back/Pelvis: COMMON NORMALS: thoracic and lumbar spine normal to inspection, no thoracic nor lumbar tenderness and thoraco-lumbar ROM normal Extremity: COMMON NORMALS: capillary refill normal, no joint enlargement, no clubbing, cyanosis or edema, no calf tenderness and no pedal edema GENERAL: Yes normal exam except as noted LEFT LOWER EXTREMITY: Yes knee joint (TTP anterior knee; no swelling noted) Left knee: Yes neurovascular exam (normal) Neuro: COMMON NORMALS: patient oriented x3 SENSORIUM/ORIENTATION: Yes alert, Yes oriented to person, Yes oriented to place and Yes oriented to time Skin: TRAUMA: no lacerations or abrasions Course ED course: XR showing abnormality to medial tibial plateau. She does have tenderness here on exam therefore will CT for better assessment. Vital Signs: Vital signs: Vital Signs Temperature 97.8 F 05/20/22 13:43 Pulse Rate 88 05/20/22 17:10 Respiratory Rate 18 05/20/22 17:10 Blood Pressure 150/72 05/20/22 13:43 Pulse Oximetry 98 05/20/22 17:10 Oxygen Delivery Me thod 05/20/22 13:43 MDM - Extremity Injury (Lower) Medical Decision Making XR knee with abnormality/concern for fracture with CT recommendation. CT was negative for fracture-possible MCL injury. Patient has a walker and wheelchair at home she can use as needed. She wants to follow up with PCP for further evaluation which is appropriate. Lab Data Radiology Impressions Knee X-Ray 05/20/22 15:28 IMPRESSION: 1. Small subchondral bone defect involving the medial tibial plateau. This might represent sequela from an old injury, osteochondritis dissecans or recent subchondral bone fracture. There there is high clinical suspicion for acute fracture, CT should be considered for further workup. Knee CT 05/20/22 16:00 IMPRESSION: 1. No acute skeletal finding. No osteocartilaginous defect. 2. Possible injury to the proximal medial collateral ligament which appears thickened with mild adjacent stranding. Discharge Plan Discharge Patient Disposition: Home Clinical Impression: Injury of left knee Qualifiers: Encounter type: initial encounter Qualified Code(s): S89.92XA - Unspecified injury of left lower leg, initial encounter Condition: Stable Prescriptions: No Action duloxetine 30 mg capsule,delayed release(DR/EC) 30 mg PO DAILY docusate sodium 100 mg capsule 100 mg PO BID tizanidine 4 mg tablet 8 mg PO BEDTIME gabapentin 300 mg capsule 300 mg PO TID aspirin 81 mg tablet,delayed release (DR/EC) 81 mg PO BEDTIME Qty: 100 3RF furosemide 20 mg tablet 20 mg PO DAILY Qty: 100 3RF hydrochlorothiazide 25 mg tablet 25 mg PO QAM Qty: 100 3RF isosorbide mononitrate 30 mg tablet extended release 24 hr 30 mg PO DAILY Qty: 100 3RF nitroglycerin 0.4 mg tablet, sublingual 0.4 mg sublingual Q5M PRN (Reason: chest pain) Qty: 50 3RF Rx Instructions: until response; do not exceed 3 doses per episode potassium chloride 10 mEq tablet extended release 10 meq PO DAILY Qty: 100 3RF metoprolol succinate 25 mg tablet extended release 24 hr See Rx Instructions .ROUTE .COMPLEX Qty: 180 3RF Dose Instruction: Take 1 tablet by mouth twice daily Rx Instructions: Take 1 tablet by mouth twice daily levothyroxine 300 mcg tablet 300 mcg PO QAM ondansetron HCl 4 mg tablet 4 mg PO Q6H PRN (Reason: Nausea And Vomiting) hydrocodone-acetaminophen 10-325 mg tablet 1 tab PO QID PRN (Reason: Pain) pramipexole 0.5 mg tablet 0.5 mg PO BEDTIME Nexium 40 mg capsule,delayed release(DR/EC) 40 mg PO QAM niacin 500 mg Tablet 2,000 mg PO BEDTIME metformin 500 mg tablet extended release 24 hr 500 mg PO BID Prolia 60 mg/mL Syringe 60 mg SUBCUT .EVERY 6 MONTHS Vitamin D3 1 cap PO QAM Novolog FlexPen U-100 Insulin 100 unit/mL (3 mL) insulin pen See Rx Instructions .ROUTE .COMPLEX Rx Instructions: 16 UNITS subcutaneously QAM, 18 UNITS AT NOON, 16 UNITS AT SUPPER PLUS SLIDING SCALE Levemir U-100 Insulin 100 unit/mL solution 30 unit SUBCUT BEDTIME Discharge Orders: Discharge ED (Routine); Ordered 05/20/22 Ordered By: Lindsay Mckinney Referrals: Lashae Alvarenga MD [Primary Care Provider] - Activity Restrictions/Additional Instructions: As we discussed please follow-up with your primary care provider. She can determine the need for physical therapy and/or MRI imaging if knee does not improve with conservative therapies. You may continue your current pain medication as directed. Continue wearing DAVID wrap and ice and elevate the knee. Weightbearing as tolerated. Coding Level of Care Code ED [employer]
--- NOTE | 2022-05-20 16:00 | CTR_ITS ---
PROCEDURE INFORMATION: Exam: CT Left Lower Extremity Without Contrast, Knee Exam date and time: 05/20/2022 4:11 PM Age: 76 years old Clinical indication: Injury or trauma; Blunt trauma; Patient HX: PT C/O left knee pain S/P fall; Additional info: Injury/abnormal XR TECHNIQUE: Imaging protocol: CT of the left lower extremity without contrast was performed. Exam focused on the knee. Radiation optimization: All CT scans at this facility use at least one of these dose optimization techniques: automated exposure control; mA and/or kV adjustment per patient size (includes targeted exams where dose is matched to clinical indication); or iterative reconstruction. REPORTING DATA: Count of CT and Cardiac NM exams in prior 12 months: This patient has received 0 known CTs and 0 known cardiac nuclear medicine studies in the 12 months prior to the current study. COMPARISON: CR XR knee LT 3V* [id number] 05/20/2022 3:42 PM RADIATION DOSE METRICS: Total DLP (mGy-cm): 370.65 FINDINGS: Bones/joints: Physiologic fluid in the knee joint. The bones are intact. No fracture. No osteocartilaginous defect. Soft tissues: Mild prepatellar and pretibial soft tissue edema. Thickening of the proximal medial collateral ligament with mild adjacent fluid or stranding. The anterior and posterior cruciate ligaments appear grossly intact. CT/CT knee LT wo con* [id number] IMPRESSION: 1. No acute skeletal finding. No osteocartilaginous defect. 2. Possible injury to the proximal medial collateral ligament which appears thickened with mild adjacent stranding.
[2022-05-20 17:10] VITALS: PULSE 88; RESP 18; O2SAT 98
== END 2022-05-20 17:11 | disposition home or self-care (01) ==
PROVIDERS: Emergency Provider Physician Assistant; PCP Family Medicine
DX: S89.92XA Unspecified injury of left lower leg, initial encounter (principal); Z79.82 Long term (current) use of aspirin; Z79.85 Long-term (current) use of injectable non-insulin antidiabetic drugs; Z79.4 Long term (current) use of insulin; Z87.891 Personal history of nicotine dependence; I10 Essential (primary) hypertension; E11.9 Type 2 diabetes mellitus without complications; W01.0XXA Fall on same level from slipping, tripping and stumbling without subsequent striking against object, initial encounter
CPT/HCPCS: 73562; 73700; 99284

== ENCOUNTER 2022-06-17 09:57 | Outpatient (CLI) | payer MEDICARE, OTHER, SELFPAY ==
--- NOTE | 2022-06-17 10:11 | MM_ITS ---
WS: [id number] BILATERAL SCREENING DIGITAL TOMOSYNTHESIS MAMMOGRAM WITH CAD HISTORY: SCREEN COMPARISON: 12/16/2020 and 10/24/2019 Bilateral CC and MLO views with tomosynthesis and synthetic mammography submitted. Limited lateral po sitioning. Computer aided detection analyzed. Breast composition: There are scattered areas of fibroglandular density. No suspicious masses, microc alcifications or architectural distortion. Benign calcifications in each breast. MM/[place] [id number] IMPRESSION: BI-RADS: 2-Benign FOLLOW UP: 1 Year Follow-up
== END 2022-06-17 09:58 | disposition home or self-care (01) ==
PROVIDERS: PCP Family Medicine; Visit Provider Family Medicine
DX: Z12.31 Encounter for screening mammogram for malignant neoplasm of breast (principal)
CPT/HCPCS: 77063; 77067

== ENCOUNTER 2022-09-10 19:51 | Inpatient (IN) | payer MEDICARE, OTHER, SELFPAY ==
[2022-09-10] VITALS (9 sets, daily range): BP systolic 80–108; BP diastolic 42–57; PULSE 52–68; RESP 4–16; O2SAT 100; BMI 45.7
[2022-09-10 19:59] LABS: Glucose Point of Care 196 mg/dL (70-110)
--- NOTE | 2022-09-10 20:04 | XRR_ITS ---
PROCEDURE INFORMATION: Exam: XR Chest Exam date and time: 09/10/2022 8:20 PM Age: 77 years old Clinical indication: Other: AMS TECHNIQUE: Imaging protocol: Radiologic exam of the chest. Views: 1 view. COMPARISON: CR XR chest 1V portable [id number] 01/11/2021 10:38 AM FINDINGS: Lungs: The lungs are underinflated and clear. Pleural spaces: Unremarkable. No pleural effusion. No pneumothorax. Heart/Mediastinum: The heart is normal in size. A small hiatal hernia is again noted. Bones/joints: Lower cervical spine anterior spinal fusion changes are again seen. An orthopedic anchor is present in the left humeral neck. Multilevel vertebroplasty changes are noted in the thoracolumbar spine region. Spinal stimulator leads project in the mid to lower thoracic spine region. XR/XR chest 1V portable [id number] IMPRESSION: 1. No acute cardiopulmonary abnormality. 2. Small hiatal hernia.
--- NOTE | 2022-09-10 20:05 | PC.NURSE ---
Pt brought in by EMS with [facility] 3. Respirations approx 4 times per minute. Respiratory at bedside with MD to intubate. Pt noted to be bradycardic on the monitor. Pulse check by MD was nothing felt within 10 seconds. Chest compressions began. After the 3rd compression, pt gasped and woke up. Pt confused. States I was trying to ride my horse and yall wouldn't let me . At this point MD able to do a neurological assessment. Pt moves all extremeties equally. Pt is quick to fall back to sleep, requiring sternal rubs to wake. Respirations are currently approx 10.
--- NOTE | 2022-09-10 20:05 | CTR_ITS ---
PROCEDURE INFORMATION: Exam: CT Head Without Contrast Exam date and time: 09/10/2022 8:27 PM Age: 77 years old Clinical indication: Other: Unresponsive TECHNIQUE: Imaging protocol: Computed tomography of the head without contrast. Radiation optimization: All CT scans at this facility use at least one of these dose optimization techniques: automated exposure control; mA and/or kV adjustment per patient size (includes targeted exams where dose is matched to clinical indication); or iterative reconstruction. REPORTING DATA: Count of CT and Cardiac NM exams in prior 12 months: This patient has received [address] and 0 known cardiac nuclear medicine studies in the 12 months prior to the current study. COMPARISON: CT neck w con* [id number] 07/15/2019 8:28 AM RADIATION DOSE METRICS: Total DLP (mGy-cm): 1198.55 FINDINGS: Brain: Mild atrophy and moderate white matter chronic microvascular changes are noted. No hemorrhage or evidence of acute infarction. Cerebral ventricles: No ventriculomegaly. Paranasal sinuses: Visualized sinuses are unremarkable. No fluid levels. Mastoid air cells: Visualized mastoid air cells are well aerated. Bones/joints: Unremarkable. No acute fracture. Soft tissues: Unremarkable. CT/CT head wo con* [id number] IMPRESSION: No acute intracranial abnormality.
--- NOTE | 2022-09-10 20:06 | ECG_ITS ---
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 Measurements Intervals [place] Rate: 58 P: 6 WV: 176 QRS: 18 QRSD: 88 T: 2 QT: 428 QTc: 421 Interpretive Statements SINUS BRADYCARDIA LOW QRS VOLTAGE IN PRECORDIAL LEADS [QRS DEFLECTION < 1.0 mV IN CHEST LEADS] NONSPECIFIC ST & T-WAVE ABNORMALITY Compared to ECG 01/11/2021 12:40:53 T-wave abnormality now present Sinus rhythm no longer present Electronically Signed On 09-12-2022 7:59:55 CDT by Gerber Aleman M.D. [id number]
[2022-09-10 20:18] LABS: ABG PCO2 53.2 mmHg (35-45); ABG PH Result 7.36 (7.35-7.45); Base Excess ABG 3.6 mmol/L (-2.0-2.0); Blood Gas Allen Test Pos; Blood Gas Sample Site Radial, right; Blood Gas Sample Type Arterial; Carboxyhemoglobin < 0.0 %THgb (0.4-20.1); HGB O2 Sat 96.2 % (95-100); Ionized Calcium Level - ABG 1.4 mmol/L (1.1-1.4); Methemoglobin 0.4 % (0.4-1.5); Oxygen Device NC; Oxygen Saturation ABG 96.5; Potassium Level - ABG 3.4 mmol/L (3.5-5.0); Total Hemoglobin 11.4 g/dL (12-16)
[2022-09-10] MEDS: sodium chloride 0.9% 1,000 ML 999 ML IV ×2 (20:20→23:29)
[2022-09-10 20:33] LABS: Basophils % 0.4 %; Eosinophils # 0.3 10^3/uL (0.0-0.8); Eosinophils % 2.8 %; Hematocrit 35.4 % (37.0-47.0); Hemoglobin 11.1 g/dL (11.5-15.3); Lymphocytes # 2.1 10^3/uL (0.8-4.8); Lymphocytes % 23.7 %; Mean Corpuscular HGB Conc 31.4 g/dL (30.0-36.0); Mean Corpuscular Hemoglobin 30.7 pg (28.0-34.0); Mean Corpuscular Volume 98.1 fl (81-99); Mean Platelet Volume 9.2 fL (7.4-10.4); Monocytes # 0.8 10^3/uL (0.2-0.9); Monocytes % 8.5 %; Neutrophils # 5.71 10^3/uL (1.8-7.7); Neutrophils % 63.9 %; Nucleated Red Blood Cells % 0 %; Platelet Count 282 10^3/cmm (130-400); Red Blood Count 3.61 10^6/uL (4.1-5.3); Red Cell Distribution Width 12.3 % (12.1-15.1); White Blood Count 8.9 10^3/uL (4.0-10.0)
[2022-09-10 20:49] LABS: INR 0.99 (0.8-1.2)
[2022-09-10 20:50] LABS: Partial Thromboplastin Time 23.7 SECONDS (23.9-36.7)
[2022-09-10 20:53] LABS: Ammonia 24 umol/L (11-51); Lactic Sepsis W/Reflex 3.2 mmol/L (0.5-2.2)
[2022-09-10 20:55] LABS: Troponin(5th) Baseline 13 ng/L (0-10)
[2022-09-10 20:59] LABS: Alanine Aminotransferase 11 U/L (0-33); Albumin Level 3.4 g/dL (3.5-5.2); Alkaline Phosphatase 53 U/L (35-105); Blood Urea Nitrogen 22 mg/dL (8-23); C Reactive Protein 6.8 mg/L (0.0-4.9); Calcium 9.4 mg/dL (8.5-10.5); Carbon Dioxide 27 mmol/L (22-29); Chloride 100 mmol/L (98-107); Creatine Phosphokinase 33 U/L (26-192); Globulin 2.4 g/dL (1.3-4.6); Glucose 176 mg/dL (65-115); Magnesium 1.9 mg/dL (1.7-2.3); NT Pro B Type Natriuretic Pept 135 pg/mL (0-450); Osmolality Calculated 294 mOsm/kg (285-295); Phosphorus 3.8 mg/dL (2.5-4.5); Sodium 138 mmol/L (136-145); Total Bilirubin 0.2 mg/dL (0.15-1.2); Total Protein 5.8 g/dL (6.6-8.7)
[2022-09-10 21:05] LABS: Alcohol Level < 10 mg/dL (0-10)
[2022-09-10 21:06] LABS: Anion Gap 14.7 (5-19); Aspartate Amino Transferase 14 U/L (0-32); Potassium 3.7 mmol/L (3.5-5.1)
[2022-09-10 21:13] LABS: Bilirubin Urine 1+ (Negative); Blood Urine Neg (Negative); Glucose Urine UA Trace (Normal); Ketones Urine Negative (Negative); Nitrate Urine Positive (Negative); Protein Urine Trace (Negative); Urine Appearance Hazy (CLEAR); Urine Color Yellow (Yellow); pH Urine 5 (5-7)
[2022-09-10 21:14] LABS: Add Urine Microscopic? YES; Leukocyte Esterase Urine 2+ (Negative); Urobilinogen Urine Norm (Negative)
[2022-09-10 21:15] LABS: Bacteria Urine 3+ /hpf; Hyaline Casts Urine 0-4 /lpf; Mucus Urine 1+ /hpf; RBC Urine 0-4 /hpf (0-2); Squamous Epithelial Cell Urine 0-4 /hpf (0-5)
[2022-09-10 21:17] LABS: Add Urine Culture? Yes
[2022-09-10 22:15] LABS: Reflex Lactate Order REFLEX LACTIC ORDERD
[2022-09-10] MEDS: piperacillin-tazobactam 4.5 GM in sodium chloride 0.9% (plus) 50 ML IV (22:26)
[2022-09-10 22:42] LABS: Troponin 5 2HR 16.88 ng/L (0-10)
[2022-09-10 22:46] LABS: Troponin 5 2HR Delta 3.88 ABS# (0-10)
[2022-09-10 23:04] LABS: Lactic Acid level (Lactate) 1.4 mmol/L (0.5-2.2)
[2022-09-11] VITALS (71 sets, daily range): BP systolic 108–194; BP diastolic 59–109; PULSE 53–84; RESP 10–36; TEMP 36.4–37; O2SAT 89–100
[2022-09-11] MEDS: sodium chloride 0.9% 1,000 ML 999 ML IV (01:09)
--- NOTE | 2022-09-11 01:27 | PM.HP ---
Providers/Chief Complaint Admitting Physician: Reshma Martinez MD Primary Care Provider: Lashae Alvarenga MD Chief Complaint: AMS History of Present Illness Sadaf Anderson is a 77 year old female with history of hypothyroidism hypertension type 2 diabetes mellitus GERD anemia was brought in by EMS after the found her drowsy and unresponsive at home. At first her thought she is asleep tried to wake her up but gradually she became unresponsive to painful stimuli. reported that usually she is lethargic. On arrival to ER she was arousable to painful stimuli but still unresponsive her systolic blood pressure was found to be 84. After IV fluid boluses she became responsive on sternal rub but still was found to be confused she was also given Narcan pain in ER because of chronic opioid use. There is no history of fever cold cough chest pain shortness of breath urinary or bowel complaints Her initial lab results are consistent with UTI and dehydration. She lives with her at home and uses a walker. She is full code as per her for now. On admission in ICU she was more responsive but intermittently confused. She complained of chronic low back pain but denied fever cough chest pain abdominal pain bowel or urinary complaints. Review of Systems Narrative: Review of systems as as per HPI Medications/Allergies Home Medications Medication Instructions Recorded Confirmed Last Taken Type Vitamin D3 1 cap PO QAM 01/11/21 01/11/21 01/11/21 History denosumab 60 mg/mL subcutaneous 60 mg SUBCUT .EVERY 6 MONTHS 01/11/21 01/11/21 12/12/20 History syringe (Prolia) esomeprazole magnesium 40 mg 40 mg PO QAM 01/11/21 01/11/21 01/11/21 06:00 History capsule,delayed release (Nexium) hydrocodone 10 mg-acetaminophen 1 tab PO QID PRN Pain 01/11/21 01/11/21 01/11/21 06:00 History 325 mg tablet levothyroxine 300 mcg tablet 300 mcg PO QAM 01/11/21 01/11/21 01/11/21 History metformin 500 mg tablet,extended 500 mg PO BID 01/11/21 01/11/21 01/11/21 06:00 History release 24 hr niacin 500 mg tablet 2,000 mg PO BEDTIME 01/11/21 01/11/21 01/10/21 History ondansetron HCl 4 mg tablet 4 mg PO Q6H PRN Nausea And Vomiting 01/11/21 01/11/21 Unknown History pramipexole 0.5 mg tablet 0.5 mg PO BEDTIME 01/11/21 01/11/21 01/10/21 History docusate sodium 100 mg capsule 100 mg PO BID 03/02/21 Unknown History duloxetine 30 mg capsule,delayed 30 mg PO DAILY 03/02/21 Unknown History release insulin aspart U-100 100 unit/mL See Rx Instructions .Route 03/02/21 Unknown History (3 mL) subcutaneous pen (Novolog .COMPLEX SEE PHARMACY COMMENTS FlexPen U-100 Insulin aspart) insulin detemir U-100 100 unit/mL 30 unit SUBCUT BEDTIME SEE 03/02/21 Unknown History subcutaneous solution (Levemir PHARMACY COMMENTS U-100 Insulin) tizanidine 4 mg tablet 8 mg PO BEDTIME 03/02/21 Unknown History gabapentin 300 mg capsule 300 mg PO TID 01/03/22 Unknown History aspirin 81 mg tablet,delayed 81 mg PO BEDTIME #100 tabs 04/04/22 Unknown Rx release furosemide 20 mg tablet 20 mg PO DAILY #100 tabs 04/04/22 Unknown Rx hydrochlorothiazide 25 mg tablet 25 mg PO QAM #100 tabs 04/04/22 Unknown Rx isosorbide mononitrate 30 mg 30 mg PO DAILY #100 tabs 04/04/22 Unknown Rx tablet,extended release 24 hr nitroglycerin 0.4 mg sublingual 0.4 mg sublingual Q5M PRN chest 04/04/22 Unknown Rx tablet pain #50 tabs potassium chloride 10 mEq 10 meq PO DAILY #100 tabs 04/04/22 Unknown Rx tablet,extended release metoprolol succinate 25 mg See Rx Instructions .Route 04/27/22 Unknown Rx tablet,extended release 24 hr .COMPLEX #180 tabs Allergies Allergy/AdvReac Type Severity Reaction Status Date / Time DAVID Inhibitors Allergy swelling Verified 07/11/22 08:13 atorvastatin [From Lipitor] Allergy swelling Verified 07/11/22 08:13 ezetimibe [From Zetia] Allergy muscle Verified 07/11/22 08:13 weakness lisinopril Allergy swelling Verified 07/11/22 08:13 milnacipran [From Savella] Allergy swelling Verified 07/11/22 08:13 simvastatin [From Zocor] Allergy muscle Verified 07/11/22 08:13 weakness [id number] Reductase Allergy swelling, Verified 07/11/22 08:13 Inhibitor muscle weakness All meds for Fibromyalgia Allergy Intermediate Unknown Uncoded 07/11/22 08:13 PFSH Acute PFSH: Medical History Abnormal stress test Anemia Aphthous ulcer of mouth Arthralgia Bilateral leg cramps Dyspnea Fatigue Fibromyalgia GERD (gastroesophageal reflux disease) Hiatal hernia Hx of type 2 diabetes mellitus Hypertension Hypothyroidism Restless leg syndrome Tachycardia Vitamin D deficiency Weakness Surgical History History of back surgery x 2 History of carpal tunnel release History of repair of hiatal hernia History of surgery on wrist Hx of neck surgery Hx of repair of left rotator cuff Hx of tubal ligation Hx of varicose vein ligation Family History Father Diabetes CAD (coronary artery disease) Hypertension Brother Diabetes Suicide Grandfather Diabetes CAD (coronary artery disease) Grandmother Diabetes CAD (coronary artery disease) Family/Other Diabetes CAD (coronary artery disease) Mother CAD (coronary artery disease) Denies family history of Clotting disorder Dementia Chronic kidney disease (CKD) Anesthesia complication Bleeding disorder Lung disease Cancer Stroke Social History Smoking and tobacco status: former smoker Alcohol intake: never Substance/Drug Use: never Vitals/I&O/Wt Last Vital Signs Pulse 55 L 09/10/22 23:30 Resp 16 09/10/22 23:30 BP 108/57 09/10/22 23:30 Pulse Ox 100 09/10/22 23:30 O2 Del Method Nasal Cannula 09/11/22 00:30 O2 Flow Rate 4 09/10/22 22:28 09/10/22 09/10/22 09/11/22 14:59 22:59 06:59 Intake Total 2049 Balance 2049 Weight last 48 hrs Weight 113.398 kg Physical Exam Narrative: She is awake alert but confused comfortably lying in bed in no acute distress Chest is clear to auscultation bilaterally Cardiovascular S1-S2 normal no murmurs detected Abdominal soft nontender nondistended normal bowel sounds Extremities trace edema bilateral lower extremities. Urinary Catheter Management: Saucedo: Cath Placed During This Visit: yes Urinary Catheter Date of Insertion: 09/10/22 Urinary Catheter Time of Insertion: 21:04 Data 09/10/22 20:05 09/10/22 20:05 Micro: Microbiology 09/10/22 20:18 Blood Culture - Preliminary Blood SPECIMEN COLLECTED 09/10/22 20:18 Blood Culture - Preliminary Blood SPECIMEN COLLECTED CXR: Radiologist's impression: No acute cardiopulmonary pathology Small hiatal hernia CT Head: Radiologist's impression: Brain: Mild atrophy and moderate white matter chronic microvascular changes are noted. No hemorrhage or evidence of acute infarction. Cerebral ventricles: No ventriculomegaly. Paranasal sinuses: Visualized sinuses are unremarkable. No fluid levels. Mastoid air cells: Visualized mastoid air cells are well aerated. Bones/joints: Unremarkable. No acute fracture. Soft tissues: Unremarkable. EKG 1: EKG computer-generated impression: SINUS BRADYCARDIA LOW QRS VOLTAGE IN PRECORDIAL LEADS? [QRS DEFLECTION < 1.0 mV IN CHEST LEADS] NONSPECIFIC ST & T-WAVE ABNORMALITY A&P Assessment and plan (1) UTI (urinary tract infection): (2) AMS (altered mental status): Plan Altered mental status is likely secondary to UTI and polypharmacy since she is on tizanidine and oxycodone for chronic low back pain. Her mental status has improved since arrival to ER. We will admit her to ICU IV fluids normal saline at 75 mL/h IV Zosyn 3.375 mg every 8 hours Resume home medications Will decrease dose of tizanidine to 4 mg/day DVT prophylaxis with subcutaneous heparin Cardiac diet [facility]cess[facility] Statement*: She has altered mental status and UTI which needs inpatient treatment and stabilization. Hence she would need more than 2 midnights of hospitalization. Time Spent in Patient Care: 40 minutes Coding Level of Care Code Critical Care >/= 30 minutes Diagnoses UTI (urinary tract infection) N39.0 AMS (altered mental status) R41.82 Time Spent (min) 40
--- NOTE | 2022-09-11 01:42 | ECG_ITS ---
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 Measurements Intervals [place] Rate: 52 P: 12 [place]: 165 QRS: -7 QRSD: 91 T: 7 QT: 448 QTc: 419 Interpretive Statements SINUS BRADYCARDIA LOW QRS VOLTAGE IN PRECORDIAL LEADS [QRS DEFLECTION < 1.0 mV IN CHEST LEADS] POSSIBLE ANTERIOR MYOCARDIAL INFARCTION , PROBABLY OLD [30 ms Q WAVE IN V3/V4, OR R < 0.2 mV IN V4] Compared to ECG 09/10/2022 20:16:00 Myocardial infarct finding now present T-wave abnormality no longer present Electronically Signed On 09-12-2022 8:03:20 CDT by Gerber Aleman M.D. [id number]
[2022-09-11] MEDS: sodium chloride 0.9% 1,000 ML 75 ML IV ×2 (01:51→14:27)
[2022-09-11] MEDS: enoxaparin 30 mg/0.3 mL Syringe SUBCUT (01:55)
[2022-09-11 02:11] LABS: Basophils % 0.4 %; Eosinophils # 0.3 10^3/uL (0.0-0.8); Eosinophils % 2.8 %; Hemoglobin 10.6 g/dL (11.5-15.3); Lymphocytes # 2.7 10^3/uL (0.8-4.8); Mean Corpuscular HGB Conc 30.3 g/dL (30.0-36.0); Mean Corpuscular Hemoglobin 30.4 pg (28.0-34.0); Mean Corpuscular Volume 100.3 fl (81-99); Mean Platelet Volume 8.5 fL (7.4-10.4); Monocytes % 10.2 %; Neutrophils # 5.74 10^3/uL (1.8-7.7); Neutrophils % 58.6 %; Nucleated Red Blood Cells % 0 %; Platelet Count 205 10^3/cmm (130-400); Red Blood Count 3.49 10^6/uL (4.1-5.3); Red Cell Distribution Width 12.5 % (12.1-15.1); White Blood Count 9.8 10^3/uL (4.0-10.0)
[2022-09-11] MEDS: metoprolol succinate ER (24 HR) 25 mg Tablet PO ×3 (02:22→17:29)
[2022-09-11 02:29] LABS: Lactic Sepsis W/Reflex 1.1 mmol/L (0.5-2.2)
[2022-09-11 02:31] LABS: Troponin 5 6HR 14.19 ng/L (0-10)
[2022-09-11 02:41] LABS: Alanine Aminotransferase 13 U/L (0-33); Albumin Level 3.1 g/dL (3.5-5.2); Alkaline Phosphatase 54 U/L (35-105); Anion Gap 10.1 (5-19); Aspartate Amino Transferase 14 U/L (0-32); Blood Urea Nitrogen 22 mg/dL (8-23); Calcium 9.1 mg/dL (8.5-10.5); Carbon Dioxide 31 mmol/L (22-29); Chloride 107 mmol/L (98-107); Globulin 2.4 g/dL (1.3-4.6); Glucose 55 mg/dL (65-115); NT Pro B Type Natriuretic Pept 92 pg/mL (0-450); Osmolality Calculated 299 mOsm/kg (285-295); Phosphorus 5.3 mg/dL (2.5-4.5); Potassium 4.1 mmol/L (3.5-5.1); Sodium 144 mmol/L (136-145); Total Bilirubin 0.2 mg/dL (0.15-1.2); Total Protein 5.5 g/dL (6.6-8.7)
[2022-09-11 02:47] LABS: Troponin 5 6HR Delta 1.19 ng/L (0-12)
[2022-09-11 03:01] LABS: Glucose Point of Care 65 mg/dL (70-110)
[2022-09-11] MEDS: HYDROcodone-acetaminophen 10-325 mg Tablet 1 TAB PO (03:06)
[2022-09-11 03:24] LABS: Glucose Point of Care 80 mg/dL (70-110)
[2022-09-11 04:20] LABS: Glucose Point of Care 124 mg/dL (70-110)
[2022-09-11] MEDS: levothyroxine 150 mcg Tablet 300 MCG PO (05:22)
[2022-09-11] MEDS: pantoprazole DR 40 mg Tablet PO (05:22)
[2022-09-11] MEDS: piperacillin-tazobactam 3.375 GM in sodium chloride 0.9% (plus) 50 ML IV ×3 (06:06→22:26)
[2022-09-11 07:54] LABS: Glucose Point of Care 154 mg/dL (70-110)
--- NOTE | 2022-09-11 08:56 | PC.PHAR ---
PT STS HER DR TOLD HER TO STOP TAKING THE 81 MG ASP DAILY
[2022-09-11] MEDS: FUROsemide 20 mg Tablet PO (09:04)
[2022-09-11] MEDS: gabapentin 300 mg Capsule PO ×3 (09:04→20:46)
[2022-09-11] MEDS: isosorbide mononitrate ER 30 mg Tablet PO (09:04)
[2022-09-11] MEDS: duloxetine 30 mg Capsule PO (09:04)
[2022-09-11 11:55] LABS: Glucose Point of Care 348 mg/dL (70-110)
[2022-09-11] MEDS: insulin lispro 100 unit/1 mL SUBCUT ×3 (12:20→20:46)
--- NOTE | 2022-09-11 13:44 | ED_ITS ---
HPI - Altered Mental Status General: Chief Complaint: Altered Mental Status Stated Complaint: AMS Time Seen by Provider: 09/10/22 19:54 Source: EMS History of Present Illness: 77 year old female presenting with altered mental status from home. Very little is known about this patient on her presentation. She is obtunded. She is very difficult to arouse. At first, she does not arouse with a sternal rub. On presentation, she became bradycardic, and pulses were thready. She responded however to a precordial thump, and woke up, asking where she was. She seems confused. She asks me where I got that shirt, and didn't she buy it for me. EMS administered 1.5 milligrams of Narcan without improvement. They placed oxygen on the patient. They note that she was arousable at times, and was maintaining her airway with normal oxygenation. MD complaint: altered mental status and decreased responsiveness Onset (ago): unknown Severity: severe Consistency of symptoms: Waxing and Waning Context: other Associated symptoms: Reports other Treatments prior to arrival: oxygen Review of Systems General: Reports: ROS unobtainable due to mental status PFSH ED PFSH: Medical History Abnormal stress test Anemia Aphthous ulcer of mouth Arthralgia Bilateral leg cramps Dyspnea Fatigue Fibromyalgia GERD (gastroesophageal reflux disease) Hiatal hernia Hx of type 2 diabetes mellitus Hypertension Hypothyroidism Restless leg syndrome Tachycardia Vitamin D deficiency Weakness Surgical History History of back surgery x 2 History of carpal tunnel release History of repair of hiatal hernia History of surgery on wrist Hx of neck surgery Hx of repair of left rotator cuff Hx of tubal ligation Hx of varicose vein ligation Family History Father Diabetes CAD (coronary artery disease) Hypertension Brother Diabetes Suicide Grandfather Diabetes CAD (coronary artery disease) Grandmother Diabetes CAD (coronary artery disease) Family/Other Diabetes CAD (coronary artery disease) Mother CAD (coronary artery disease) Denies family history of Clotting disorder Dementia Chronic kidney disease (CKD) Anesthesia complication Bleeding disorder Lung disease Cancer Stroke Social History Smoking and tobacco status: former smoker Alcohol intake: never Substance/Drug Use: never Physical Exam Const: GENERAL APPEARANCE: ill appearing and frail appearing NUTRITIONAL APPEARANCE: obese ORIENTATION/CONSCIOUSNESS: Yes patient obtunded HENMT: COMMON NORMALS: normocephalic, atraumatic and Normal external nose present HEAD & SCALP: normocephalic and atraumatic FACE & SINUS: normal facial exam and face symmetric NOSE: Normal external nose present Eye: COMMON NORMALS: Equal, round and reactive pupils present and EOMs intact bilaterally GENERAL EYE: normal light reflex PUPIL: Yes Equal, round and reactive pupils present and Yes Other pupil findings (small) DIRECT OPHTHALMOSCOPY: Yes normal light reflex Chest: CHEST: Yes Symmetrical chest wall rise Resp: COMMON NORMALS: clear to auscultation bilaterally EFFORT & INSPECTION: Yes decreased respiratory effort (initial resp 4-6 per min) AUSCULTATION: clear to auscultation bilaterally and diminished lung sounds Cardio: COMMON NORMALS: regular rhythm RATE: bradycardic RHYTHM: regular rhythm GI: COMMON NORMALS: Normal to inspection, nondistended, normoactive bowel sounds present and Soft to palpation PALPATION: Yes Soft to palpation Extremity: GENERAL: No cyanosis Neuro: BOLIVAR COMA SCALE: document GCS findings Bolivar coma scale eye opening: To pressure Marianna coma scale verbal response: Confused Bolivar coma scale motor response: Obey commands Marianna coma scale total score: 12 COORDINATION/BALANCE: No [id number] test normal (pt unable to comply) SPEECH: abnormal speech Details: slurred SENSORY EXAM: Yes extremities (intact) MOTOR EXAM: Pronator motor function not present, Motor fasciculations not present, Normal motor muscle tone present throughout and Other motor observations present (symmetric strength) COORDINATION: [id number] test abnormal (pt unable to comply) Skin: COMMON NORMALS: no wounds Urinary Catheter Management: Saucedo: Cath Placed During This Visit: yes Reason for Continuing Indwelling Catheter: Accurate Measurement of Urinary Output in Critically Ill Patients Urinary Catheter Date of Insertion: 09/10/22 Urinary Catheter Time of Insertion: 21:04 Course Vital Signs: Vital signs: Vital Signs Temperature 97.7 F 09/11/22 07:30 Pulse Rate 77 09/11/22 10:15 Respiratory Rate 36 H 09/11/22 10:15 Blood Pressure 142/66 09/11/22 10:15 Pulse Oximetry 93 09/11/22 10:15 Oxygen Delivery Me thod Room Air 09/11/22 10:15 Oxygen Flow Rate 2 09/11/22 03:30 MDM - Altered Mental Status Medical Decision Making This patient was very difficult to arouse on arrival. Her GCS essentially was three. As we were nearing intubating this patient, with precordial some, she arose, talking. She is confused. She's maintaining her airway, with good oxygenation. GCS increased to 12. She was able to follow commands. She has equal workers compensation claims adjuster strength and moves arms and lower extremities equally bilaterally. There is no facial droop. No gaze preference. No visual defect appreciated. Further questioning is performed of the patient's on his arrival. She notes that she has been doing this mainly in the evenings for the last couple of weeks. She's been to an outside facility a couple of different times without resolution of the problem. He says that she was set up for a ?neurology study? at this facility, but this isn't to be completed until october. 2 more milligrams of Narcan were administered here, without improvement in the patient's symptoms. She received a fluid bolus, she was mildly hypotensive at first, but has been normotensive since. She was somewhat bradycardic on arrival, but this has improved as well. Etiology of her obtundation is somewhat unclear. She does take narcotic pain medication as well as she has been on tizanidine and gabapentin, so polypharmacy could be part of the issue. CBC is essentially normal. BMP is not remarkable. PCO2 is 53, but with a normal pH. She is oxygenating appropriately on blood gas testing. she does have a urinary tract infection, which is mild. Liver enzymes are normal period initial lactate was elevated, but improved to normal after fluid bolus. Ammonia level is 24. CRP is only seven. Delta troponin is only 4. Head CT is negative. Chest X- ray is red is negative. Given her hypotension, initially, and significant mental status change, she'll go to the ICU. Spoke with hospitalist who agrees to admit. Again, ideology is still somewhat unclear. Lab Data 09/11/22 02:04 09/11/22 02:04 Radiology Impressions Chest X-Ray 09/10/22 20:04 IMPRESSION: 1. No acute cardiopulmonary abnormality. 2. Small hiatal hernia. Head CT 09/10/22 20:05 IMPRESSION: No acute intracranial abnormality. Laboratory Results WBC 8.9 10^3/uL (4.0-10.0) 09/10/22 20:05 RBC 3.61 10^6/uL (4.1-5.3) L 09/10/22 20:05 Hgb 11.1 g/dL (11.5-15.3) L 09/10/22 20:05 Hct 35.4 % (37.0-47.0) L 09/10/22 20:05 MCV 98.1 fl (81-99) 09/10/22 20:05 MCH 30.7 pg (28.0-34.0) 09/10/22 20:05 MCHC 31.4 g/dL (30.0-36.0) 09/10/22 20:05 RDW 12.3 % (12.1-15.1) 09/10/22 20:05 Plt Count 282 10^3/cmm (130-400) 09/10/22 20:05 MPV 9.2 fL (7.4-10.4) 09/10/22 20:05 Neut % (Auto) 63.9 % 09/10/22 20:05 Lymph % (Auto) 23.7 % 09/10/22 20:05 [place] % (Auto) 8.5 % 09/10/22 20:05 Eos % (Auto) 2.8 % 09/10/22 20:05 Baso % (Auto) 0.4 % 09/10/22 20:05 Neut # (Auto) 5.71 10^3/uL (1.8-7.7) 09/10/22 20:05 Lymph # (Auto) 2.1 10^3/uL (0.8-4.8) 09/10/22 20:05 [place] # (Auto) 0.8 10^3/uL (0.2-0.9) 09/10/22 20:05 Eos # (Auto) 0.3 10^3/uL (0.0-0.8) 09/10/22 20:05 Baso # (Auto) 0.0 10^3/uL (0.0-0.1) 09/10/22 20:05 Nucleated RBC % (auto) 0 % 09/10/22 20:05 Nucleated RBCs # 0.0 /100WBC 09/10/22 20:05 PT 13.40 SECONDS (12.1-14.9) 09/10/22 20:05 INR 0.99 (0.8-1.2) 09/10/22 20:05 APTT 23.7 SECONDS (23.9-36.7) L 09/10/22 20:05 Specimen Type Arterial 09/10/22 20:06 Sample Site Radial, right 09/10/22 20:06 ABG pH 7.36 (7.35-7.45) 09/10/22 20:06 ABG pCO2 53.2 mmHg (35-45) H 09/10/22 20:06 ABG pO2 113.0 mmHg (80.0-100.0) H 09/10/22 20:06 ABG HCO3 30.0 mmol/L (22-26) H 09/10/22 20:06 ABG O2 Saturation 96.5 09/10/22 20:06 ABG Base Excess 3.6 mmol/L (-2.0-2.0) H 09/10/22 20:06 Marlon Test Pos 09/10/22 20:06 Hematocrit 35.0 % (37-47) L 09/10/22 20:06 Hgb O2 Saturation 96.2 % (95-100) 09/10/22 20:06 Carboxyhemoglobin < 0.0 %THgb (0.4-20.1) L 09/10/22 20:06 Methemoglobin 0.4 % (0.4-1.5) 09/10/22 20:06 Total Hemoglobin 11.4 g/dL (12-16) L 09/10/22 20:06 Sodium 144.0 mmol/L (131-143) H 09/10/22 20:06 Potassium 3.4 mmol/L (3.5-5.0) L 09/10/22 20:06 Glucose 171.0 mg/dL (70-115) H 09/10/22 20:06 Ionized Calcium 1.4 mmol/L (1.1-1.4) 09/10/22 20:06 O2 Delivery Device Nc 09/10/22 20:06 O2 Liters/Min 5.0 % 09/10/22 20:06 Staff Home Therapy Rn ID [email or web address] 09/10/22 20:06 Sodium 138 mmol/L (136-145) 09/10/22 20:05 Potassium 3.7 mmol/L (3.5-5.1) 09/10/22 20:05 Chloride 100 mmol/L (98-107) 09/10/22 20:05 Carbon Dioxide 27 mmol/L (22-29) 09/10/22 20:05 Anion Gap 14.7 (5-19) 09/10/22 20:05 BUN 22 mg/dL (8-23) 09/10/22 20:05 Creatinine 1.1 mg/dL (0.5-0.9) H 09/10/22 20:05 GFR Calculation Not Reportable 09/10/22 20:05 Glucose 176 mg/dL (65-115) H 09/10/22 20:05 POC Glucose 196 mg/dL (70-110) H 09/10/22 19:55 Calculated Osmolality 294 mOsm/kg (285-295) 09/10/22 20:05 Lactic Acid 3.2 mmol/L (0.5-2.2) H 09/10/22 20:05 Lactic Acid (Sepsis) 1.4 mmol/L (0.5-2.2) 09/10/22 22:43 Calcium 9.4 mg/dL (8.5-10.5) 09/10/22 20:05 Phosphorus 3.8 mg/dL (2.5-4.5) 09/10/22 20:05 Magnesium 1.9 mg/dL (1.7-2.3) 09/10/22 20:05 Total Bilirubin 0.2 mg/dL (0.15-1.2) 09/10/22 20:05 AST 14 U/L (0-32) 09/10/22 20:05 ALT 11 U/L (0-33) 09/10/22 20:05 Alkaline Phosphatase 53 U/L (35-105) 09/10/22 20:05 Ammonia 24 umol/L (11-51) 09/10/22 20:05 Creatine Kinase 33 U/L (26-192) 09/10/22 20:05 Troponin T Baseline 13 ng/L (0-10) H 09/10/22 20:05 Troponin T 120 Minute 16.88 ng/L (0-10) H 09/10/22 22:03 Delta Troponin T 3.88 ABS# (0-10) 09/10/22 22:03 C-Reactive Protein 6.8 mg/L (0.0-4.9) H 09/10/22 20:05 NT-Pro-B Natriuret Pep 135 pg/mL (0-450) 09/10/22 20:05 Total Protein 5.8 g/dL (6.6-8.7) L 09/10/22 20:05 Albumin 3.4 g/dL (3.5-5.2) L 09/10/22 20:05 Globulin 2.4 g/dL (1.3-4.6) 09/10/22 20:05 Urine Color Yellow (Yellow) 09/10/22 21:00 Urine Appearance Hazy (CLEAR) A 09/10/22 21:00 Urine pH 5 (5-7) 09/10/22 21:00 Ur Specific [place] 1.020 (1.005-1.030) 09/10/22 21:00 Urine Protein Trace (Negative) 09/10/22 21:00 Urine Glucose (UA) Trace (Normal) H 09/10/22 21:00 Urine Ketones Negative (Negative) 09/10/22 21:00 Urine Blood Neg (Negative) 09/10/22 21:00 Urine Nitrate Positive (Negative) H 09/10/22 21:00 Urine Bilirubin 1+ (Negative) H 09/10/22 21:00 Urine Urobilinogen Norm mg/dL (Negative) 09/10/22 21:00 Ur Leukocyte Esterase 2+ (Negative) H 09/10/22 21:00 Urine RBC 0-4 /hpf (0-2) H 09/10/22 21:00 Urine WBC 5-10 /hpf (0-5) H 09/10/22 21:00 Ur Squamous Epith Cells 0-4 /hpf (0-5) H 09/10/22 21:00 Amorphous Sediment Not Reportable 09/10/22 21:00 Urine Bacteria 3+ /hpf (NONE) H 09/10/22 21:00 Hyaline Casts 0-4 /lpf H 09/10/22 21:00 Urine Mucus 1+ /hpf 09/10/22 21:00 Ethyl Alcohol < 10 mg/dL (0-10) 09/10/22 20:05 Critical Care Time Critical Care Time: Critical Care Time: Yes Total Critical Care Time: 40 Attestation: This case had a high probability of a clinically significant, sudden, or life threatening deterioration of this patient's condition which required my full and direct attention, intervention and personal management. Time is independent of any procedures performed. Discharge Plan Discharge Patient Disposition: Admitted As Inpatient Admit Provider: Reshma Martinez Clinical Impression: UTI (urinary tract infection), AMS (altered mental status), Acute hypotension, At risk for polypharmacy Condition: Serious Coding Level of Care Code ED Sound Designer for Sal Monet
[2022-09-11] MEDS: hyDRALAzine 20 mg/mL INJ 1 mL 10 MG IVP (13:47)
--- NOTE | 2022-09-11 16:54 | PC.NURSE ---
Report called to second floor, June RN. Patient transferred to room 270, patient resting in bed with staff at bedside. All belongings with patient at transfer. , Henrry, notified of transfer. Neither patient or family had questions at the time of transfer. NS running at 75ml/hr, Zosyn running at 12.5ml/hr.
[2022-09-11 17:17] LABS: Glucose Point of Care 215 mg/dL (70-110)
[2022-09-11] MEDS: docusate sodium 100 mg Capsule PO (17:29)
[2022-09-11 19:48] LABS: Glucose Point of Care 225 mg/dL (70-110)
[2022-09-11] MEDS: tizanidine 4 mg Tablet PO (20:46)
[2022-09-11] MEDS: aspirin 81 mg EC Tablet PO (20:46)
[2022-09-11] MEDS: pramipexole 0.25 mg Tablet 0.5 MG PO (20:46)
[2022-09-11] MEDS: niacin ER (24 hr) 500 mg Capsule 2000 MG PO (21:13)
[2022-09-11] MEDS: insulin glargine 100 units/1 mL 30 UNIT SUBCUT (21:14)
[2022-09-11] MEDS: diphenhydrAMINE 25 mg Capsule PO (23:48)
[2022-09-12] MEDS: enoxaparin 30 mg/0.3 mL Syringe SUBCUT (01:03)
[2022-09-12] MEDS: sodium chloride 0.9% 1,000 ML 75 ML IV (03:28)
[2022-09-12 04:00] VITALS: BP 156/76; PULSE 88; RESP 17; TEMP 36.4; O2SAT 94
[2022-09-12] MEDS: levothyroxine 150 mcg Tablet 300 MCG PO (05:49)
[2022-09-12] MEDS: pantoprazole DR 40 mg Tablet PO (05:49)
[2022-09-12 06:05] VITALS: PULSE 83
[2022-09-12] MEDS: piperacillin-tazobactam 3.375 GM in sodium chloride 0.9% (plus) 50 ML IV (06:24)
[2022-09-12] MEDS: HYDROcodone-acetaminophen 10-325 mg Tablet 1 TAB PO (06:27)
[2022-09-12 06:41] LABS: Glucose Point of Care 216 mg/dL (70-110)
[2022-09-12 07:27] VITALS: BP 167/81; PULSE 87; RESP 18; TEMP 36.9; O2SAT 95
[2022-09-12] MEDS: insulin lispro 100 unit/1 mL SUBCUT (09:02)
[2022-09-12] MEDS: FUROsemide 20 mg Tablet PO (09:03)
[2022-09-12] MEDS: isosorbide mononitrate ER 30 mg Tablet PO (09:03)
[2022-09-12] MEDS: duloxetine 30 mg Capsule PO (09:03)
[2022-09-12] MEDS: docusate sodium 100 mg Capsule PO (09:03)
[2022-09-12] MEDS: metoprolol succinate ER (24 HR) 25 mg Tablet PO (09:03)
[2022-09-12] MEDS: gabapentin 300 mg Capsule PO (09:03)
[2022-09-12 11:14] VITALS: BP 167/81; PULSE 87; RESP 18; TEMP 36.9; O2SAT 95
--- NOTE | 2022-09-13 07:36 | P.DS_ITS ---
Discharge Providers Date of Admission: 09/10/22 23:42 Date of Discharge: September 13, 2022 Attending Provider at Admission: Reshma Martinez MD Attending Provider at Discharge: Johnie Calabrese MD Primary Care Provider: Lashae Alvarenga MD Diagnoses at Discharge Discharge Diagnosis (1) UTI (urinary tract infection): Status: Acute (2) AMS (altered mental status): Status: Acute Reason for Visit Reason for Visit: AMS Hospital Course Hospital Course HPI: Resmha Martinez MD Sadaf Anderson is a 77 year old female with history of hypothyroidism hypertension type 2 diabetes mellitus GERD anemia was brought in by EMS after the found her drowsy and unresponsive at home.? At first her thought she is asleep tried to wake her up but gradually she became unresponsive to painful stimuli.? reported that usually she is lethargic. On arrival to ER she was arousable to painful stimuli but still unresponsive her systolic blood pressure was found to be 84.? After IV fluid boluses she became responsive on sternal rub but still was found to be confused she was also given Narcan pain in ER because of chronic opioid use. There is no history of fever cold cough chest pain shortness of breath urinary or bowel complaints Her initial lab results are consistent with UTI and dehydration. She lives with her at home and uses a walker. She is full code as per her for now. On admission in ICU she was more responsive but intermittently confused.? She complained of chronic low back pain but denied fever cough chest pain abdominal pain bowel or urinary complaints. Hospital course: She was admitted for the management of altered mental status likely secondary to UTI and polypharmacy Initially she was kept on Zosyn IV hydration, dose of tizanidine was decreased to 4 mg/day, Blood culture was negative, urine culture grew E. coli, pansensitive, she was discharged on, levofloxacin 750 mg p.o. daily for additional 5 days, at the time of discharge she was at her baseline mentation, holding good conversation. She was discharged in stable condition to home, she will continue to follow her PCP as outpatient. Physical Exam HENMT: COMMON NORMALS: normocephalic and atraumatic HEAD & SCALP: normocephalic and atraumatic Resp: COMMON NORMALS: clear to auscultation bilaterally AUSCULTATION: clear to auscultation bilaterally Cardio: COMMON NORMALS: regular rate, regular rhythm, S1 normal heart sound present, S2 normal heart sound present, No gallops present (Cardio), No murmurs present (Cardio), No rub (Cardio) and Peripheral pulses 2+ throughout RATE: regular rate RHYTHM: regular rhythm HEART SOUNDS: S1 normal heart sound present and S2 normal heart sound present PERIPHERAL PULSES: Peripheral pulses 2+ throughout GI: COMMON NORMALS: Normal to inspection, nondistended, normoactive bowel sounds present, Soft to palpation, non-tender, No hepatosplenomegaly present and no masses AUSCULTATION: Yes normoactive bowel sounds PALPATION: Yes Soft to palpation and Yes No hepatosplenomegaly present RECTAL EXAM: deferred Extremity: COMMON NORMALS: no clubbing, cyanosis or edema and no pedal edema Urinary Catheter Management: Saucedo: Cath Placed During This Visit: yes, but has since been removed by the nurse Reason for Continuing Indwelling Catheter: Decision to DC Catheter Urinary Catheter Date of Insertion: 09/10/22 Urinary Catheter Time of Insertion: 21:04 Date Urinary Catheter Removed: 09/12/22 Time Urinary Catheter Discontinued: 10:20 Discharge Data Studies Completed and Pending Completed Studies During Hospitalization Category Date Time Status CT head wo con* [id number] Stat Cat Scan 09/10/22 20:05 Completed XR chest 1V portable [id number] Stat Exams 09/10/22 20:04 Completed Pending at discharge Category Date Time Status ABG FULL [Arterial Blood Gas Full] Stat Lab 09/10/22 20:06 Results Blood Culture Stat Lab 09/10/22 20:18 Results Urine Culture Stat Lab 09/10/22 21:00 Results Radiology Impressions Chest X-Ray 09/10/22 20:04 IMPRESSION: 1. No acute cardiopulmonary abnormality. 2. Small hiatal hernia. Head CT 09/10/22 20:05 IMPRESSION: No acute intracranial abnormality. Laboratory Results WBC 9.8 10^3/uL (4.0-10.0) 09/11/22 02:04 RBC 3.49 10^6/uL (4.1-5.3) L 09/11/22 02:04 Hgb 10.6 g/dL (11.5-15.3) L 09/11/22 02:04 Hct 35.0 % (37.0-47.0) L 09/11/22 02:04 MCV 100.3 fl (81-99) H 09/11/22 02:04 MCH 30.4 pg (28.0-34.0) 09/11/22 02:04 MCHC 30.3 g/dL (30.0-36.0) 09/11/22 02:04 RDW 12.5 % (12.1-15.1) 09/11/22 02:04 Plt Count 205 10^3/cmm (130-400) 09/11/22 02:04 MPV 8.5 fL (7.4-10.4) 09/11/22 02:04 Neut % (Auto) 58.6 % 09/11/22 02:04 Lymph % (Auto) 27.0 % 09/11/22 02:04 [place] % (Auto) 10.2 % 09/11/22 02:04 Eos % (Auto) 2.8 % 09/11/22 02:04 Baso % (Auto) 0.4 % 09/11/22 02:04 Neut # (Auto) 5.74 10^3/uL (1.8-7.7) 09/11/22 02:04 Lymph # (Auto) 2.7 10^3/uL (0.8-4.8) 09/11/22 02:04 [place] # (Auto) 1.0 10^3/uL (0.2-0.9) H 09/11/22 02:04 Eos # (Auto) 0.3 10^3/uL (0.0-0.8) 09/11/22 02:04 Baso # (Auto) 0.0 10^3/uL (0.0-0.1) 09/11/22 02:04 Nucleated RBC % (auto) 0 % 09/11/22 02:04 Nucleated RBCs # 0.0 /100WBC 09/11/22 02:04 PT 13.40 SECONDS (12.1-14.9) 09/10/22 20:05 INR 0.99 (0.8-1.2) 09/10/22 20:05 APTT 23.7 SECONDS (23.9-36.7) L 09/10/22 20:05 Specimen Type Arterial 09/10/22 20:06 Sample Site Radial, right 09/10/22 20:06 ABG pH 7.36 (7.35-7.45) 09/10/22 20:06 ABG pCO2 53.2 mmHg (35-45) H 09/10/22 20:06 ABG pO2 113.0 mmHg (80.0-100.0) H 09/10/22 20:06 ABG HCO3 30.0 mmol/L (22-26) H 09/10/22 20:06 ABG O2 Saturation 96.5 09/10/22 20:06 ABG Base Excess 3.6 mmol/L (-2.0-2.0) H 09/10/22 20:06 Marlon Test Pos 09/10/22 20:06 Hematocrit 35.0 % (37-47) L 09/10/22 20:06 Hgb O2 Saturation 96.2 % (95-100) 09/10/22 20:06 Carboxyhemoglobin < 0.0 %THgb (0.4-20.1) L 09/10/22 20:06 Methemoglobin 0.4 % (0.4-1.5) 09/10/22 20:06 Total Hemoglobin 11.4 g/dL (12-16) L 09/10/22 20:06 Sodium 144.0 mmol/L (131-143) H 09/10/22 20:06 Potassium 3.4 mmol/L (3.5-5.0) L 09/10/22 20:06 Glucose 171.0 mg/dL (70-115) H 09/10/22 20:06 Ionized Calcium 1.4 mmol/L (1.1-1.4) 09/10/22 20:06 O2 Delivery Device Nc 09/10/22 20:06 O2 Liters/Min 5.0 % 09/10/22 20:06 Senior Consumer Insights Consultant ID [email or web address] 09/10/22 20:06 Sodium 144 mmol/L (136-145) 09/11/22 02:04 Potassium 4.1 mmol/L (3.5-5.1) 09/11/22 02:04 Chloride 107 mmol/L (98-107) 09/11/22 02:04 Carbon Dioxide 31 mmol/L (22-29) H 09/11/22 02:04 Anion Gap 10.1 (5-19) 09/11/22 02:04 BUN 22 mg/dL (8-23) 09/11/22 02:04 Creatinine 1.2 mg/dL (0.5-0.9) H 09/11/22 02:04 GFR Calculation Not Reportable 09/11/22 02:04 Glucose 55 mg/dL (65-115) L 09/11/22 02:04 POC Glucose 216 mg/dL (70-110) H 09/12/22 06:37 Calculated Osmolality 299 mOsm/kg (285-295) H 09/11/22 02:04 Lactic Acid 1.1 mmol/L (0.5-2.2) 09/11/22 02:04 Lactic Acid (Sepsis) 1.4 mmol/L (0.5-2.2) 09/10/22 22:43 Calcium 9.1 mg/dL (8.5-10.5) 09/11/22 02:04 Phosphorus 5.3 mg/dL (2.5-4.5) H 09/11/22 02:04 Magnesium 2.0 mg/dL (1.7-2.3) 09/11/22 02:04 Total Bilirubin 0.2 mg/dL (0.15-1.2) 09/11/22 02:04 AST 14 U/L (0-32) 09/11/22 02:04 ALT 13 U/L (0-33) 09/11/22 02:04 Alkaline Phosphatase 54 U/L (35-105) 09/11/22 02:04 Ammonia 24 umol/L (11-51) 09/10/22 20:05 Creatine Kinase 33 U/L (26-192) 09/10/22 20:05 Troponin T Baseline 13 ng/L (0-10) H 09/10/22 20:05 Troponin T 120 Minute 16.88 ng/L (0-10) H 09/10/22 22:03 Delta Troponin T 3.88 ABS# (0-10) 09/10/22 22:03 Troponin T Hi Sens 6Hr 14.19 ng/L (0-10) H 09/11/22 02:04 Troponin T Hi Sens 6Hr Delta 1.19 ng/L (0-12) 09/11/22 02:04 C-Reactive Protein 6.8 mg/L (0.0-4.9) H 09/10/22 20:05 NT-Pro-B Natriuret Pep 92 pg/mL (0-450) 09/11/22 02:04 Total Protein 5.5 g/dL (6.6-8.7) L 09/11/22 02:04 Albumin 3.1 g/dL (3.5-5.2) L 09/11/22 02:04 Globulin 2.4 g/dL (1.3-4.6) 09/11/22 02:04 Urine Color Yellow (Yellow) 09/10/22 21:00 Urine Appearance Hazy (CLEAR) A 09/10/22 21:00 Urine pH 5 (5-7) 09/10/22 21:00 Ur Specific [place] 1.020 (1.005-1.030) 09/10/22 21:00 Urine Protein Trace (Negative) 09/10/22 21:00 Urine Glucose (UA) Trace (Normal) H 09/10/22 21:00 Urine Ketones Negative (Negative) 09/10/22 21:00 Urine Blood Neg (Negative) 09/10/22 21:00 Urine Nitrate Positive (Negative) H 09/10/22 21:00 Urine Bilirubin 1+ (Negative) H 09/10/22 21:00 Urine Urobilinogen Norm mg/dL (Negative) 09/10/22 21:00 Ur Leukocyte Esterase 2+ (Negative) H 09/10/22 21:00 Urine RBC 0-4 /hpf (0-2) H 09/10/22 21:00 Urine WBC 5-10 /hpf (0-5) H 09/10/22 21:00 Ur Squamous Epith Cells 0-4 /hpf (0-5) H 09/10/22 21:00 Amorphous Sediment Not Reportable 09/10/22 21:00 Urine Bacteria 3+ /hpf (NONE) H 09/10/22 21:00 Hyaline Casts 0-4 /lpf H 09/10/22 21:00 Urine Mucus 1+ /hpf 09/10/22 21:00 Ethyl Alcohol < 10 mg/dL (0-10) 09/10/22 20:05 Vitals Last Vital Signs Temp 98.4 F 09/12/22 11:14 Pulse 87 09/12/22 11:14 Resp 18 09/12/22 11:14 BP 167/81 09/12/22 11:14 Pulse Ox 95 06/19/23 11:14 O2 Del Method Room Air 09/12/22 07:27 O2 Flow Rate 2 09/11/22 03:30 Discharge Plan Discharge Patient Disposition: Home Condition: Serious Prescriptions: New levofloxacin 750 mg tablet 750 mg PO DAILY 5 Days Qty: 5 0RF Continued duloxetine 30 mg capsule,delayed release(DR/EC) 30 mg PO DAILY docusate sodium 100 mg capsule 100 mg PO BID gabapentin 300 mg capsule 300 mg PO TID furosemide 20 mg tablet 20 mg PO DAILY Qty: 100 3RF hydrochlorothiazide 25 mg tablet 25 mg PO QAM Qty: 100 3RF isosorbide mononitrate 30 mg tablet extended release 24 hr 30 mg PO DAILY Qty: 100 3RF nitroglycerin 0.4 mg tablet, sublingual 0.4 mg sublingual Q5M PRN (Reason: chest pain) Qty: 50 3RF Rx Instructions: until response; do not exceed 3 doses per episode potassium chloride 10 mEq tablet extended release 10 meq PO DAILY Qty: 100 3RF metoprolol succinate 25 mg tablet extended release 24 hr See Rx Instructions .ROUTE .COMPLEX Qty: 180 3RF Dose Instruction: Take 1 tablet by mouth twice daily Rx Instructions: Take 1 tablet by mouth twice daily levothyroxine 300 mcg tablet 300 mcg PO QAM ondansetron HCl 4 mg tablet 4 mg PO Q6H PRN (Reason: Nausea And Vomiting) hydrocodone-acetaminophen 10-325 mg tablet 1 tab PO QID PRN (Reason: Pain) pramipexole 0.5 mg tablet 0.5 mg PO BEDTIME esomeprazole magnesium [Nexium] 40 mg capsule,delayed release(DR/EC) 40 mg PO QAM niacin 500 mg Tablet 2,000 mg PO BEDTIME metformin 500 mg tablet extended release 24 hr 500 mg PO BID Prolia 60 mg/mL Syringe 60 mg SUBCUT .EVERY 6 MONTHS Novolog FlexPen U-100 Insulin 100 unit/mL (3 mL) insulin pen See Rx Instructions .ROUTE .COMPLEX Rx Instructions: 16 UNITS subcutaneously QAM, 18 UNITS AT NOON, 16 UNITS AT SUPPER PLUS SLID ING SCALE Levemir U-100 Insulin 100 unit/mL solution 30 unit SUBCUT BEDTIME Vitamin D3 25 mcg (1,000 unit) Capsule 25 mcg PO DAILY omeprazole 40 mg capsule,delayed release(DR/EC) 40 mg PO DAILY albuterol sulfate 90 mcg/actuation HFA aerosol inhaler 2 puff INHALATION Q4H PRN (Reason: Shortness Of Breath Or Wheezing) Changed tizanidine 4 mg tablet 4 mg PO BEDTIME 30 Days Qty: 30 0RF Discharge Orders: Discharge Order (Routine); Ordered 09/12/22 Ordered By: Johnie Calabrese Referrals: Lashae Alvarenga MD [Primary Care Provider] - (THE OFFICE WILL CALL WITH APPOINTMENT) Patient Instructions: Levofloxacin (By mouth), Urinary Tract Infection in Women (GEN), Opioid Safety Discharge Attestations Time Spent in Discharge Care*: less than 30 min Quality Metrics Clinical Quality Measures [ No reported AMI, CVA or VTE this stay] Coding Level of Care Code Acute Code for Chg Fwd Diagnoses UTI (urinary tract infection) N39.0 AMS (altered mental status) R41.82
== END 2022-09-12 11:16 | disposition home health service (06) | DRG 690 ==
LOC: ER 20:35 → ICU 23:43 → MEDSURG 09-11 16:36
PROVIDERS: Internal Medicine; Admitting Provider Internal Medicine; Emergency Provider Emergency Medicine; PCP Family Medicine; Visit Provider Internal Medicine
DX: N39.0 Urinary tract infection, site not specified (principal); B96.20 Unspecified Escherichia coli [E. coli] as the cause of diseases classified elsewhere; E03.9 Hypothyroidism, unspecified; I10 Essential (primary) hypertension; E11.9 Type 2 diabetes mellitus without complications; K21.9 Gastro-esophageal reflux disease without esophagitis; D64.9 Anemia, unspecified; E86.0 Dehydration; G89.29 Other chronic pain; M54.50 Low back pain, unspecified; R41.82 Altered mental status, unspecified; T42.8X5A Adverse effect of antiparkinsonism drugs and other central muscle-tone depressants, initial encounter; T40.2X5A Adverse effect of other opioids, initial encounter; Z79.891 Long term (current) use of opiate analgesic; Z79.84 Long term (current) use of oral hypoglycemic drugs; Z79.4 Long term (current) use of insulin; M79.7 Fibromyalgia; G25.81 Restless legs syndrome; Z87.891 Personal history of nicotine dependence
CPT/HCPCS: 36415; 36416; 36600; 51702; 70450; 71045; 80051; 80053; 80307; 81001; 82140; 82330; 82550; 82805; 82962; 83605; 83735; 83880; 84100; 84484; 85025; 85610; 85730; 86140; 87040; 87077; 87086; 87186; 93005; 96361; 96372; 96374; 96375; 96376; 99291; 99292; J0330; J0360; J1650; J1815; J2310; J2543; J3490; J7030

== ENCOUNTER → 2022-11-01 07:46 | Outpatient (BNVA) | payer MEDICARE, OTHER, SELFPAY | PROVIDERS: PCP Family Medicine; Visit Provider Specialist | DX: G31.84 Mild cognitive impairment of uncertain or unknown etiology (principal); M54.9 Dorsalgia, unspecified | CPT/HCPCS: 96116; 99205 ==

== ENCOUNTER → 2023-02-06 14:33 | Outpatient (BNVA) | payer MEDICARE, OTHER, SELFPAY | PROVIDERS: PCP Family Medicine; Visit Provider Internal Medicine Cardiovascular Disease | DX: R07.89 Other chest pain (principal); E03.9 Hypothyroidism, unspecified; I10 Essential (primary) hypertension; M79.89 Other specified soft tissue disorders; E11.9 Type 2 diabetes mellitus without complications; Z79.4 Long term (current) use of insulin; Z87.891 Personal history of nicotine dependence; R94.39 Abnormal result of other cardiovascular function study | CPT/HCPCS: 99214 ==

== ENCOUNTER 2023-03-04 20:40 | Inpatient (IN) | payer MEDICARE, OTHER, SELFPAY ==
[2023-03-04 20:49] VITALS: BP 153/83; PULSE 73; RESP 20; TEMP 37.1; O2SAT 97
--- NOTE | 2023-03-04 21:00 | ED_ITS ---
HPI - Altered Mental Status 2 General: Chief Complaint: Altered Mental Status Stated Complaint: CONFUSED Time Seen by Provider: 03/04/23 20:54 History of Present Illness: 77-year-old female who says been says teresa barry has been progressively getting worse in terms of her mental status for the last 3 days or so. She has been increasingly lethargic. He states that he can get her up, and feed her some food, but she is very sleepy most of the time. She sleeps in her chair as well during the day. He says she has not moved in the last day or so. She is not usually on oxygen at home evidently. She was found by EMS to be responsive to mildly noxious stimuli. Narcan was given with no improvement. Blood sugar was checked. denies that she has had fever or increased cough. Review of Systems 2 General: Reports: ROS unobtainable due to mental status PFSH ED 2 PFSH: Medical History At risk for polypharmacy Acute hypotension AMS (altered mental status) UTI (urinary tract infection) Aphthous ulcer of mouth Weakness Arthralgia Hiatal hernia Fatigue Bilateral leg cramps Vitamin D deficiency Hypothyroidism Fibromyalgia Hypertension Hx of type 2 diabetes mellitus Tachycardia Restless leg syndrome GERD (gastroesophageal reflux disease) Dyspnea Anemia Abnormal stress test Surgical History Hx of repair of left rotator cuff History of carpal tunnel release History of back surgery x 2 History of repair of hiatal hernia History of surgery on wrist Hx of varicose vein ligation Hx of neck surgery Hx of tubal ligation Family History Father Diabetes CAD (coronary artery disease) Hypertension Brother Diabetes Suicide Grandfather Diabetes CAD (coronary artery disease) Grandmother Diabetes CAD (coronary artery disease) Family/Other Diabetes CAD (coronary artery disease) Mother CAD (coronary artery disease) Denies family history of Clotting disorder Dementia Chronic kidney disease (CKD) Anesthesia complication Bleeding disorder Lung disease Cancer Stroke Social History Smoking and tobacco/nicotine status: former use of tobacco/nicotine Alcohol intake: never Substance/Drug Use: never Physical Exam 2 Const: GENERAL APPEARANCE: ill appearing and frail appearing HENMT: COMMON NORMALS: normocephalic, atraumatic and Normal external nose present HEAD & SCALP: normocephalic and atraumatic FACE & SINUS: normal transillumination of sinuses; no edema NOSE: Normal external nose present Eye: COMMON NORMALS: Equal, round and reactive pupils present and EOMs intact bilaterally PUPIL: Yes Equal, round and reactive pupils present Chest: CHEST: Yes Symmetrical chest wall rise Resp: EFFORT & INSPECTION: Yes decreased respiratory effort AUSCULTATION: d iminished lung sounds Cardio: COMMON NORMALS: regular rate and regular rhythm RATE: regular rate RHYTHM: regular rhythm GI: COMMON NORMALS: Normal to inspection, nondistended, normoactive bowel sounds present, Soft to palpation and non-tender PALPATION: Yes Soft to palpation Extremity: GENERAL: Yes edema (1+) Neuro: [place] COMA SCALE: document GCS findings [place] coma scale eye opening: To pressure [place] coma scale verbal response: Words [place] coma scale motor response: Obey commands [place] coma scale total score: 11 Course 2 Vital Signs: Vital signs: Vital Signs Temperature 97.7 F 03/05/23 17:17 Pulse Rate 78 03/05/23 20:20 Respiratory Rate 18 03/05/23 20:20 Blood Pressure 125/78 03/05/23 17:17 Pulse Oximetry 93 03/05/23 20:20 Oxygen Delivery Me thod Room Air 03/05/23 20:20 Oxygen Flow Rate 1 03/05/23 11:15 Fraction of Inspir ed Oxygen 30 03/05/23 16:30 MDM - Altered Mental Status Medical Decision Making 77-year-old female with decreased mental status. Her GCS is currently 11. White blood cell count is 15. She is found to be significantly hypercapnic, with respiratory acidosis. She is placed on BiPAP. Mentation began to improve following this. CT of the head is negative for acute change. Chest x-ray shows a right midlung airspace infiltrate. She will go to the ICU. Hospitalist has seen the patient. Will repeat blood gas testing to make sure the patient is improved. If not improving on BiPAP alone, will intubate the patient, although is unsure if she would wish to be intubated. Lab Data 03/05/23 03:19 03/05/23 03:19 Radiology Impressions Chest X-Ray 03/04/23 21:07 IMPRESSION: 1. Cardiomegaly. 2. Thoracic spinal stimulator. 3. Right mid lung airspace infiltrate. Head CT 03/04/23 21:16 IMPRESSION: 1. Negative for intracranial hemorrhage or mass effect 2. Large amount of diffuse white matter disease likely reflecting chronic microvascular ischemic changes. 3. Left temporal lobe chronic atrophy. Chest CTA 03/04/23 23:08 IMPRESSION: 1. Negative for pulmonary embolus. 2. Several low-density hepatic lesions seen, measuring up to 21 mm in the right hepatic lobe, not seen with certainty on prior exam, dedicated CT abdomen pelvis advised for further evaluation as findings are somewhat concerning for metastatic disease. 3. Scattered subcentimeter short axis nonspecific mediastinal lymph nodes. 4. Cardiomegaly. 5. Coronary artery atherosclerotic calcifications. 6. Hepatic steatosis. 7. Gallbladder distended, ultrasound could further evaluate this. 8. Constipation. 9. Bilateral dependent airspace infiltrates. Abdomen/Pelvis CT 03/05/23 06:55 IMPRESSION: Possible hepatic mass. See discussion above. Abdomen Ultrasound 03/05/23 15:00 IMPRESSION: No acute sonographic findings. Thyroid Ultrasound 03/05/23 15:00 IMPRESSION: No nodules identified. Laboratory Results WBC 11.10 10^3/uL (3.29-11.43) 03/04/23 21:35 Corrected WBC Cancelled 03/04/23 19:50 RBC 3.71 10^6/uL (3.85-5.65) L 03/04/23 21:35 Hgb 11.40 g/dL (11.27-16.99) 03/04/23 21:35 Hct 37.4 % (36-47) 03/04/23 21:35 MCV 100.8 fl (85-98) H 03/04/23 21:35 MCH 30.7 pg (27-33) 03/04/23 21:35 MCHC 30.5 g/dL (30-55) 03/04/23 21:35 RDW 12.7 % (12.1-15.1) 03/04/23 21:35 Plt Count 278 10^3/cmm (157-399) 03/04/23 21:35 MPV 8.2 fL (7.4-10.4) 03/04/23 21:35 Gran % Cancelled 03/04/23 19:50 Neut % (Auto) 63.9 % 03/04/23 21:35 Lymph % (Auto) 21.7 % 03/04/23 21:35 [place] % (Auto) 9.7 % 03/04/23 21:35 Eos % (Auto) 3.2 % 03/04/23 21:35 Baso % (Auto) 0.5 % 03/04/23 21:35 Neut # (Auto) 7.09 10^3/uL (1.8-7.7) 03/04/23 21:35 Lymph # (Auto) 2.4 10^3/uL (0.8-4.8) 03/04/23 21:35 [place] # (Auto) 1.1 10^3/uL (0.2-0.9) H 03/04/23 21:35 Eos # (Auto) 0.4 10^3/uL (0.0-0.8) 03/04/23 21:35 Baso # (Auto) 0.1 10^3/uL (0.0-0.1) 03/04/23 21:35 Absolute Gran (auto) Cancelled 03/04/23 19:50 Nucleated RBC % (auto) 0 % 03/04/23 21:35 Nucleated RBCs # 0.0 /100WBC 03/04/23 21:35 D-Dimer 1.89 ug/mLFEU (0-0.59) H 03/04/23 22:27 Specimen Type Arterial 03/04/23 21:29 Sample Site Radial, left 03/04/23 21:29 ABG pH 7.21 (7.35-7.45) L 03/04/23 21:29 ABG pCO2 92.8 mmHg (35-45) H* 03/04/23 21:29 ABG pO2 89.5 mmHg (80.0-100.0) 03/04/23 21:29 ABG PO2/FiO2 Ratio 0 03/04/23 21:29 ABG HCO3 36.7 mmol/L (22-26) H 03/04/23 21:29 ABG Base Excess 6.0 mmol/L (-2.0-2.0) H 03/04/23 21:29 Marlon Test Pos 03/04/23 21:29 Hematocrit 34.9 % (37-47) L 03/04/23 21:29 Hgb O2 Saturation 91.3 % (95-100) L 03/04/23 21:29 Carboxyhemoglobin 0.3 %THgb (0.4-20.1) L 03/04/23 21:29 Methemoglobin 1.0 % (0.4-1.5) 03/04/23 21:29 Total Hemoglobin 11.4 g/dL (12-16) L 03/04/23 21:29 O2 Delivery Device Nc 03/04/23 21:29 O2 Liters/Min 2.0 % 03/04/23 21:29 FiO2 28.0 % 03/04/23 21:29 Patrol Commander ID Ed 03/04/23 21:29 Sodium 141 mmol/L (136-145) 03/04/23 21:45 Potassium 4.7 mmol/L (3.5-5.1) 03/04/23 21:45 Chloride 100 mmol/L (98-107) 03/04/23 21:45 Carbon Dioxide 32 mmol/L (22-29) H 03/04/23 21:45 Anion Gap 13.7 (5-19) 03/04/23 21:45 BUN 20 mg/dL (8-23) 03/04/23 21:45 Creatinine 0.8 mg/dL (0.5-0.9) 03/04/23 21:45 GFR Calculation Not Reportable 03/04/23 21:45 Glucose 138 mg/dL (65-115) H 03/04/23 21:45 Calculated Osmolality 297 mOsm/kg (285-295) H 03/04/23 21:45 Lactic Acid 1.8 mmol/L (0.5-2.2) 03/04/23 22:27 Calcium 9.3 mg/dL (8.5-10.5) 03/04/23 21:45 Total Bilirubin 0.2 mg/dL (0.15-1.2) 03/04/23 21:45 AST 10 U/L (0-32) 03/04/23 21:45 ALT 9 U/L (0-33) 03/04/23 21:45 Alkaline Phosphatase 83 U/L (35-105) 03/04/23 21:45 Ammonia 19 umol/L (11-51) 03/04/23 21:35 Troponin T Baseline 11 ng/L (0-10) H 03/04/23 19:50 Troponin T 120 Minute 13.46 ng/L (0-10) H 03/04/23 22:27 Delta Troponin T 2.46 ABS# (0-10) 03/04/23 22:27 NT-Pro-B Natriuret Pep 59 pg/mL (0-450) 03/04/23 21:45 Total Protein 7.1 g/dL (6.6-8.7) 03/04/23 21:45 Albumin 3.8 g/dL (3.5-5.2) 03/04/23 21:45 Globulin 3.3 g/dL (1.3-4.6) 03/04/23 21:45 TSH 115.10 uIU/mL (0.27-4.20) H 03/04/23 19:50 Free T4 0.41 ng/dL (0.82-1.77) L 03/04/23 21:35 Random Cortisol 15.29 ug/dL (2.47-19.5) 03/04/23 21:35 Urine Color Yellow (Yellow) 03/04/23 21:29 Urine Appearance Hazy (CLEAR) A 03/04/23 21: Urine pH 5 (5-7) 03/04/23 21: Ur Specific Check 1.020 (1.005-1.030) 03/04/23 21:29 Urine Protein Trace (Negative) 03/04/23 21:29 Urine Glucose (UA) Norm (Normal) 03/04/23 21:29 Urine Ketones 1+ (Negative) H 03/04/23 21:29 Urine Blood Trace (Negative) H 03/04/23 21:29 Urine Nitrate Positive (Negative) H 03/04/23 21:29 Urine Bilirubin 1+ (Negative) H 03/04/23 21: Urine Urobilinogen Neg mg/dL (Negative) 03/04/23 21: Ur Leukocyte Esterase Trace (Negative) H 03/04/23 21:29 Urine RBC 0-4 /hpf (0-2) H 03/04/23 21:29 Urine WBC 0-4 /hpf (0-5) H 03/04/23 21:29 Ur Squamous Epith Cells Rare /hpf (0-5) 03/04/23 21:29 Amorphous Sediment Not Reportable 03/04/23 21:29 Urine Bacteria 4+ /hpf (NONE) H 03/04/23 21:29 Urine Mucus 1+ /hpf 03/04/23 21:29 All radiology interpretation(s) finalized by discharge Critical Care Time 2 Critical Care Time: Critical Care Time: Yes Total Critical Care Time: 35 Attestation: This case had a high probability of a clinically significant, sudden, or life threatening deterioration of this patient's condition which required my full and direct attention, intervention and personal management. Time does not include any procedures performed on the patient. Discharge Plan Discharge Patient Disposition: Admitted As Inpatient Admit Provider: Luis Brady Clinical Impression: Acute hypercapnic respiratory failure, Acute alteration in mental status Condition: Serious Coding Level of Care Code ED Emergency Room Physician Assistant for Sal Monet
--- NOTE | 2023-03-04 21:07 | XRR_ITS ---
PROCEDURE INFORMATION: Exam: XR Chest Exam date and time: 03/04/2023 9:26 PM Age: 77 years old Clinical indication: Prior surgery; Surgery date: 6+ months; Surgery type: Cervical fusion. Nerve stimulator. Patient HX: EMS arrival for AMS. Per patient has been severely lethargic and unresponsive for the last few days. Patient is non verbal with eyes closed upon exam. TECHNIQUE: Imaging protocol: Radiologic exam of the chest. Views: 1 view. COMPARISON: CR XR chest 1V portable [id number] 09/10/2022 8:20 PM FINDINGS: Lungs: Right mid lung airspace infiltrate. Pleural spaces: Unremarkable. No pleural effusion. No pneumothorax. Heart/Mediastinum: Cardiomegaly. Bones/joints: Thoracic spinal stimulator. XR/XR chest 1V portable [id number] IMPRESSION: 1. Cardiomegaly. 2. Thoracic spinal stimulator. 3. Right mid lung airspace infiltrate.
[2023-03-04 21:09] VITALS: BP 136/73; PULSE 71; RESP 16; O2SAT 97
--- NOTE | 2023-03-04 21:16 | CTR_ITS ---
PROCEDURE INFORMATION: Exam: CT Head Without Contrast Exam date and time: 03/04/2023 9:45 PM Age: 77 years old Clinical indication: Altered mental status/memory loss; Patient HX: EMS arrival for AMS. Per patient has been severely lethargic and unresponsive for the last few days. Patient is non verbal with eyes closed upon exam. TECHNIQUE: Imaging protocol: Computed tomography of the head without contrast. Radiation optimization: All CT scans at this facility use at least one of these dose optimization techniques: automated exposure control; mA and/or kV adjustment per patient size (includes targeted exams where dose is matched to clinical indication); or iterative reconstruction. REPORTING DATA: Count of CT and Cardiac NM exams in prior 12 months: This patient has received 2 known CTs and 0 known cardiac nuclear medicine studies in the 12 months prior to the current study. COMPARISON: CT head wo con* [id number] 09/10/2022 8:27 PM RADIATION DOSE METRICS: Total DLP (mGy-cm): 1509.98 FINDINGS: Brain: Large amount of diffuse white matter disease likely reflecting chronic microvascular ischemic changes. Left temporal lobe chronic atrophy. Cerebral ventricles: No ventriculomegaly. Paranasal sinuses: Visualized sinuses are unremarkable. No fluid levels. Mastoid air cells: Visualized mastoid air cells are well aerated. Bones/joints: Unremarkable. No acute fracture. Soft tissues: Unremarkable. CT/CT head wo con* [id number] IMPRESSION: 1. Negative for intracranial hemorrhage or mass effect 2. Large amount of diffuse white matter disease likely reflecting chronic microvascular ischemic changes. 3. Left temporal lobe chronic atrophy.
--- NOTE | 2023-03-04 21:21 | ECG_ITS ---
[facility] Test Date: 2023-03-04 Pat Name: Sadaf Anderson Department: Room: Gender: Female Talend Developer: : 1945 Requested By: Elmo Prieto Order Number: [id number] Huy MD: Brian Booth M.D. Measurements Intervals [place] Rate: 70 P: 36 NC: 172 QRS: 16 QRSD: 86 T: 43 QT: 381 QTc: 414 Interpretive Statements SINUS RHYTHM LOW QRS VOLTAGE IN PRECORDIAL LEADS [QRS DEFLECTION < 1.0 mV IN CHEST LEADS] Compared to ECG 09/11/2022 01:42:41 Sinus bradycardia no longer present Myocardial infarct finding no longer present Electronically Signed On 03-05-2023 8:36:03 SAND CAR WORKER by Brian Booth M.D. [id number]
[2023-03-04 21:37] LABS: Troponin(5th) Baseline 11 ng/L (0-10)
[2023-03-04 21:40] LABS: ABG PCO2 92.8 mmHg (35-45); ABG PH Result 7.21 (7.35-7.45); Arterial Blood Gas Hematocrit 34.9 % (37-47); Blood Gas Allen Test Pos; Blood Gas Operator Identificat ED; Blood Gas Sample Site Radial, left; Blood Gas Sample Type Arterial; Carboxyhemoglobin 0.3 %THgb (0.4-20.1); HCO3 ABG 36.7 mmol/L (22-26); HGB O2 Sat 91.3 % (95-100); Oxygen Device NC; PO2 ABG 89.5 mmHg (80.0-100.0); PO2 FiO2 Ratio Arterial Blood 0; Total Hemoglobin 11.4 g/dL (12-16)
[2023-03-04 21:52] LABS: Basophils # 0.1 10^3/uL (0.0-0.1); Basophils % 0.5 %; Eosinophils # 0.4 10^3/uL (0.0-0.8); Eosinophils % 3.2 %; Hematocrit 37.4 % (36-47); Lymphocytes # 2.4 10^3/uL (0.8-4.8); Lymphocytes % 21.7 %; Mean Corpuscular HGB Conc 30.5 g/dL (30-55); Mean Corpuscular Hemoglobin 30.7 pg (27-33); Mean Corpuscular Volume 100.8 fl (85-98); Mean Platelet Volume 8.2 fL (7.4-10.4); Monocytes # 1.1 10^3/uL (0.2-0.9); Monocytes % 9.7 %; Neutrophils # 7.09 10^3/uL (1.8-7.7); Neutrophils % 63.9 %; Nucleated Red Blood Cells % 0 %; Platelet Count 278 10^3/cmm (157-399); Red Blood Count 3.71 10^6/uL (3.85-5.65); Red Cell Distribution Width 12.7 % (12.1-15.1)
--- NOTE | 2023-03-04 21:54 | P.HP_ITS ---
Providers/Chief Complaint 2 Primary Care Provider: Lashae Alvarenga MD Chief Complaint: CONFUSED History of Present Illness Sadaf Anderson is a 77 year old female with history of hypothyroidism, polypharmacy, was admitted earlier this year for unresponsiveness, confusion polypharmacy related to UTI, urine culture grew E. coli presented with confusion. Patient is not a provide history, most information taken from previous records and . is stating that his is struggling with dementia because she cannot dress up to go to jain on Sundays and he is the one who is cooking food and helping her out most of the time. For last couple of days she has been confused, talking to herself, not able to get good sleep, has been tries not to sleep in the same room because she talks in her sleep, stating that she probably missed last 4 to 5 days of levothyroxine at home, otherwise she keeps levothyroxine in her bathroom and she takes levothyroxine first thing in the morning on empty stomach. As per the , levothyroxine dose was readjusted by the PCP. He is not 100% sure if she has been compliant with all the medications stating he cannot keep track of them. is endorsing that his is not able to carry out a decent conversation, yesterday she fell asleep while eating her food. No recent diarrhea, fever, chest pain. 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, will give her stress dose steroids, IV levothyroxine, She is full code Requested CT chest because of her high D-dimer Review of Systems 2 General: Reports: ROS unobtainable due to medical condition and ROS unobtainable due to mental status Medications/Allergies Home Medications Medication Instructions Recorded Confirmed Last Taken Type denosumab 60 mg/mL subcutaneous 60 mg SUBCUT .EVERY 6 MONTHS 01/11/21 11/01/22 12/12/20 History syringe (Prolia) esomeprazole magnesium 40 mg 40 mg PO QAM 01/11/21 09/11/22 01/11/21 06:00 History capsule,delayed release (Nexium) hydrocodone 10 mg-acetaminophen 1 tab PO QID PRN Pain 01/11/21 11/01/22 01/11/21 06:00 History 325 mg tablet levothyroxine 300 mcg tablet 300 mcg PO QAM 01/11/21 09/11/22 01/11/21 History metformin 500 mg tablet,extended 500 mg PO BID 01/11/21 11/01/22 01/11/21 06:00 History release 24 hr niacin 500 mg tablet 2,000 mg PO BEDTIME 01/11/21 09/11/22 01/10/21 History ondansetron HCl 4 mg tablet 4 mg PO Q6H PRN Nausea And Vomiting 01/11/21 11/01/22 Unknown History pramipexole 0.5 mg tablet 0.5 mg PO BEDTIME 01/11/21 11/01/22 01/10/21 History docusate sodium 100 mg capsule 100 mg PO BID 03/02/21 11/01/22 Unknown History duloxetine 30 mg capsule,delayed 30 mg PO DAILY 03/02/21 11/01/22 Unknown History release insulin aspart U-100 100 unit/mL See Rx Instructions .Route 03/02/21 11/01/22 Unknown History (3 mL) subcutaneous pen (Novolog .COMPLEX SEE PHARMACY COMMENTS FlexPen U-100 Insulin aspart) insulin detemir U-100 100 unit/mL 30 unit SUBCUT BEDTIME SEE 03/02/21 11/01/22 Unknown History subcutaneous solution (Levemir PHARMACY COMMENTS U-100 Insulin) gabapentin 300 mg capsule 300 mg PO TID 01/03/22 11/01/22 Unknown History furosemide 20 mg tablet 20 mg PO DAILY #100 tabs 04/04/22 11/01/22 Unknown Rx hydrochlorothiazide 25 mg tablet 25 mg PO QAM #100 tabs 04/04/22 09/11/22 Unknown Rx nitroglycerin 0.4 mg sublingual 0.4 mg sublingual Q5M PRN chest 04/04/22 09/11/22 Unknown Rx tablet pain #50 tabs potassium chloride 10 mEq 10 meq PO DAILY #100 tabs 04/04/22 11/01/22 Unknown Rx tablet,extended release albuterol sulfate 90 mcg/actuation 2 puff inhalation Q4H PRN 09/11/22 11/01/22 Unknown History aerosol inhaler Shortness Of Breath Or Wheezing cholecalciferol (vitamin D3) 25 25 mcg PO DAILY 09/11/22 09/11/22 Unknown History mcg (1,000 unit) capsule (Vitamin D3) omeprazole 40 mg capsule,delayed 40 mg PO DAILY 09/11/22 11/01/22 Unknown History release tizanidine 4 mg tablet 4 mg PO BEDTIME 30 days #30 tabs 09/12/22 11/01/22 Unknown Rx metoprolol succinate 25 mg See Rx Instructions .Route 01/09/23 Unknown Rx tablet,extended release 24 hr .COMPLEX #180 tabs amlodipine 5 mg tablet 5 mg PO DAILY #30 tabs 02/06/23 02/06/23 Unknown Rx isosorbide mononitrate 60 mg 60 mg PO DAILY #90 tabs 02/06/23 02/06/23 Unknown Rx tablet,extended release 24 hr Allergies Allergy/AdvReac Type Severity Reaction Status Date / Time DAVID Inhibitors Allergy swelling Verified 02/06/23 15:49 atorvastatin [From Lipitor] Allergy swelling Verified 02/06/23 15:49 ezetimibe [From Zetia] Allergy muscle Verified 02/06/23 15:49 weakness lisinopril Allergy swelling Verified 02/06/23 15:49 milnacipran [From Savella] Allergy swelling Verified 02/06/23 15:49 simvastatin [From Zocor] Allergy muscle Verified 02/06/23 15:49 weakness [id number] Reductase Allergy swelling, Verified 02/06/23 15:49 Inhibitor muscle weakness All meds for Fibromyalgia Allergy Intermediate Unknown Uncoded 02/06/23 15:49 PFSH Acute 2 PFSH: Medical History At risk for polypharmacy Acute hypotension AMS (altered mental status) UTI (urinary tract infection) Aphthous ulcer of mouth Weakness Arthralgia Hiatal hernia Fatigue Bilateral leg cramps Vitamin D deficiency Hypothyroidism Fibromyalgia Hypertension Hx of type 2 diabetes mellitus Tachycardia Restless leg syndrome GERD (gastroesophageal reflux disease) Dyspnea Anemia Abnormal stress test Surgical History Hx of repair of left rotator cuff History of carpal tunnel release History of back surgery x 2 History of repair of hiatal hernia History of surgery on wrist Hx of varicose vein ligation Hx of neck surgery Hx of tubal ligation Family History Father Diabetes CAD (coronary artery disease) Hypertension Brother Diabetes Suicide Grandfather Diabetes CAD (coronary artery disease) Grandmother Diabetes CAD (coronary artery disease) Family/Other Diabetes CAD (coronary artery disease) Mother CAD (coronary artery disease) Denies family history of Clotting disorder Dementia Chronic kidney disease (CKD) Anesthesia complication Bleeding disorder Lung disease Cancer Stroke Social History Smoking and tobacco/nicotine status: former use of tobacco/nicotine Alcohol intake: never Substance/Drug Use: never Vitals/I&O/Wt Last Vital Signs Temp 98.7 F 03/04/23 20:49 Pulse 71 03/04/23 21:09 Resp 16 03/04/23 21:09 BP 136/73 03/04/23 21:09 Pulse Ox 97 03/04/23 21:09 O2 Del Method Nasal Cannula 03/04/23 20:49 O2 Flow Rate 6 03/04/23 20:49 Weight last 48 hrs Weight 83.915 kg Physical Exam 2 Narrative: Patient is drowsy Will be redirectable Able to talk air Currently on AVAPS S1, S2 Clinically dry Edema of lower extremity noted, nonpitting Abdomen distended however soft Neuro exam is limited Data 03/04/23 21:35 03/04/23 21:45 A&P Assessment and plan (1) Leg swelling: (2) Hypothyroidism: (3) Hx of type 2 diabetes mellitus: (4) GERD (gastroesophageal reflux disease): Qualifiers: Esophagitis presence: without esophagitis Qualified Code(s): K21.9 - Gastro-esophageal reflux disease without esophagitis (5) Myxedema coma: Plan Myxedema coma TSH 115 Compliance with medication questionable Polypharmacy Will give her IV levothyroxine along with rest of steroids Requested another ABG patient is full code, my threshold to intubate her will stay low Patient has received antibiotics in the ER concern for aspiration pneumonia I will keep her on Zosyn antibiotics Admit to ICU Close monitoring needed Saucedo catheter will be placed I will keep her n.p.o. Patient is type II diabetic we will check A1c level Avoid muscle relaxants Full code DVT prophylaxis I would cover her with therapeutic Lovenox regimen for now because of her high D-dimer, will request CTA chest rule out PE, Attestations 2 Medical Necessity Statement*: More than 2 midnights anticipated Coding Level of Care Code Critical Care >/= 30 minutes Critical care time (in minutes): 60 The high probability of a clinically significant, sudden or life threatening deterioration, as referenced in this documentation, required my full and direct attention, intervention and personal management. The critical care time shown is in addition to time spent performing any reported separately billable procedures and includes the following: [x] Data and vital sign review and interpretation [x ] Patient assessment, examination and intervention [x] Medication orders and management [x] Patient/Family updates as able [x] Care Coordination and Documentation. 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
[2023-03-04 22:00] VITALS: BP 120/65; PULSE 70; PULSE 72; RESP 16; O2SAT 91; O2SAT 96
[2023-03-04 22:06] LABS: Ammonia 19 umol/L (11-51)
[2023-03-04 22:17] LABS: Alanine Aminotransferase 9 U/L (0-33); Albumin Level 3.8 g/dL (3.5-5.2); Alkaline Phosphatase 83 U/L (35-105); Anion Gap 13.7 (5-19); Aspartate Amino Transferase 10 U/L (0-32); Blood Urea Nitrogen 20 mg/dL (8-23); Calcium 9.3 mg/dL (8.5-10.5); Carbon Dioxide 32 mmol/L (22-29); Chloride 100 mmol/L (98-107); Globulin 3.3 g/dL (1.3-4.6); Glucose 138 mg/dL (65-115); NT Pro B Type Natriuretic Pept 59 pg/mL (0-450); Osmolality Calculated 297 mOsm/kg (285-295); Potassium 4.7 mmol/L (3.5-5.1); Sodium 141 mmol/L (136-145); Total Bilirubin 0.2 mg/dL (0.15-1.2); Total Protein 7.1 g/dL (6.6-8.7)
[2023-03-04 22:55] LABS: D Dimer 1.89 ug/mLFEU (0-0.59)
[2023-03-04 22:57] LABS: Lactic Sepsis W/Reflex 1.8 mmol/L (0.5-2.2)
[2023-03-04 23:00] VITALS: BP 120/65; PULSE 69; RESP 18; O2SAT 97
[2023-03-04] MEDS: piperacillin-tazobactam 4.5 GM in sodium chloride 0.9% (plus) 50 ML IV (23:01)
--- NOTE | 2023-03-04 23:07 | ECG_ITS ---
[facility] Test Date: 2023-03-04 Pat Name: Sadaf Anderson Department: Room: [facility] Gender: Female Transcribing Operator Head: : 1945 Requested By: Elmo Prieto Order Number: [id number] Huy MD: Brian Booth M.D. Measurements Intervals [place] Rate: 68 P: 37 UT: 152 QRS: 25 QRSD: 84 T: 39 QT: 406 QTc: 434 Interpretive Statements SINUS RHYTHM LOW QRS VOLTAGE IN PRECORDIAL LEADS [QRS DEFLECTION < 1.0 mV IN CHEST LEADS] Compared to ECG 03/04/2023 21:21:50 No significant changes Electronically Signed On 03-05-2023 8:40:36 LATHE SET UP OPERATOR by Brian Booth M.D. [id number]
--- NOTE | 2023-03-04 23:08 | CTR_ITS ---
PROCEDURE INFORMATION: Exam: CTA Chest With Contrast Exam date and time: 03/05/2023 12:10 AM Age: 77 years old Clinical indication: Abnormal findings; Abnormal diagnostic tests; Elevated d-dimer; Shortness of breath; Prior surgery; Surgery date: 6+ months; Surgery type: Cervical fusion. Nerve stimulator; Patient HX: SOB with hypoxia. Dimer 1.89. ; Additional info: Type ii respiratory failure TECHNIQUE: Imaging protocol: Computed tomographic angiography of the chest with contrast. Exam focused on the arteries. 3D rendering (Not supervised by radiologist): MIP and/or 3D reconstructed images were created by the technologist. Radiation optimization: All CT scans at this facility use at least one of these dose optimization techniques: automated exposure control; mA and/or kV adjustment per patient size (includes targeted exams where dose is matched to clinical indication); or iterative reconstruction. Contrast material: OMNI 350; Contrast volume: 130 ml; Contrast route: INTRAVENOUS (IV); REPORTING DATA: Count of CT and Cardiac NM exams in prior 12 months: This patient has received 3 known CTs and 0 known cardiac nuclear medicine studies in the 12 months prior to the current study. COMPARISON: CT angio chest PE protcl [id number] 01/11/2021 12:19 PM RADIATION DOSE METRICS: Total DLP (mGy-cm): 923.21 FINDINGS: Pulmonary arteries: Normal. No pulmonary emboli. Aorta: Unremarkable. No aortic aneurysm. No aortic dissection. Lungs: Bilateral dependent airspace infiltrates. Pleural spaces: Unremarkable. No pneumothorax. No pleural effusion. Heart: Cardiomegaly. Coronary arteries: Coronary artery atherosclerotic calcifications. Lymph nodes: Scattered subcentimeter short axis nonspecific mediastinal lymph nodes. Liver: Several low-density hepatic lesions seen, measuring up to 21 mm in the right hepatic lobe, not seen with certainty on prior exam, dedicated CT abdomen pelvis advised for further evaluation as findings are somewhat concerning for metastatic disease. Hepatic steatosis. Gallbladder and bile ducts: Gallbladder distended, ultrasound could further evaluate this. Stomach and bowel: Constipation. Bones/joints: Unremarkable. No acute fracture. Soft tissues: Unremarkable. CT/CT angio chest PE protcl [id number] IMPRESSION: 1. Negative for pulmonary embolus. 2. Several low-density hepatic lesions seen, measuring up to 21 mm in the right hepatic lobe, not seen with certainty on prior exam, dedicated CT abdomen pelvis advised for further evaluation as findings are somewhat concerning for metastatic disease. 3. Scattered subcentimeter short axis nonspecific mediastinal lymph nodes. 4. Cardiomegaly. 5. Coronary artery atherosclerotic calcifications. 6. Hepatic steatosis. 7. Gallbladder distended, ultrasound could further evaluate this. 8. Constipation. 9. Bilateral dependent airspace infiltrates.
[2023-03-04 23:37] VITALS: BP 132/76; PULSE 70; RESP 16; O2SAT 95
[2023-03-04 23:39] LABS: ABG PH Result 7.24 (7.35-7.45); Arterial Blood Gas Hematocrit 34.3 % (37-47); Base Excess ABG 5.8 mmol/L (-2.0-2.0); Blood Gas Allen Test Pos; Blood Gas Sample Type Arterial; HCO3 ABG 35.5 mmol/L (22-26)
[2023-03-04 23:40] LABS: Blood Gas Operator Identificat ED; Blood Gas Sample Site Radial, left; Blood Gas Tidal Volume 0.45; Oxygen Device BIPAP; PO2 FiO2 Ratio Arterial Blood 0
[2023-03-04 23:42] LABS: ABG PCO2 83.6 mmHg (35-45)
[2023-03-04 23:48] LABS: Cortisol Random 15.29 ug/dL (2.47-19.5); Free T4 Free Thyroxine 0.41 ng/dL (0.82-1.77)
[2023-03-05] VITALS (75 sets, daily range): BP systolic 108–187; BP diastolic 53–103; PULSE 67–90; RESP 11–31; TEMP 36.4–37.7; O2SAT 66–100; BMI 38.7
[2023-03-05] MEDS: iohexol 350 mg/mL 500 mL Btl (per mL) IV (00:23)
[2023-03-05 00:41] LABS: Troponin 5 2HR 13.46 ng/L (0-10); Troponin 5 2HR Delta 2.46 ABS# (0-10)
[2023-03-05] MEDS: levothyroxine 100 mcg SDV IVP (00:53)
[2023-03-05] MEDS: hydrocortisone 100 mg/2 mL SDV IVP ×2 (00:53→12:34)
[2023-03-05] MEDS: sodium chloride 0.9% 1,000 ML 75 ML IV (00:54)
[2023-03-05] MEDS: enoxaparin 80 mg/0.8 mL Syringe SUBCUT (00:54)
[2023-03-05] MEDS: vancomycin 1,000 MG in sodium chloride 0.9% 250 ML 250 MG IV (01:01)
--- NOTE | 2023-03-05 02:30 | PC.NURSE ---
UA Dr. Brady contacted and order received for a UA. See lab results
[2023-03-05 03:49] LABS: Add Urine Microscopic? YES; Bilirubin Urine 1+ (Negative); Blood Urine Trace (Negative); Glucose Urine UA Norm (Normal); Ketones Urine 1+ (Negative); Leukocyte Esterase Urine Trace (Negative); Nitrate Urine Positive (Negative); Protein Urine Trace (Negative); Urine Appearance Hazy (CLEAR); Urine Color Yellow (Yellow); Urobilinogen Urine Neg (Negative); pH Urine 5 (5-7)
[2023-03-05 03:52] LABS: Add Urine Culture? Yes; Bacteria Urine 4+ /hpf; Mucus Urine 1+ /hpf; RBC Urine 0-4 /hpf (0-2); Squamous Epithelial Cell Urine RARE /hpf (0-5); WBC Urine 0-4 /hpf (0-5)
[2023-03-05 04:02] LABS: Basophils # 0.1 10^3/uL (0.0-0.1); Basophils % 0.5 %; Eosinophils # 0.3 10^3/uL (0.0-0.8); Eosinophils % 1.8 %; Hematocrit 39.8 % (36-47); Lymphocytes # 1.5 10^3/uL (0.8-4.8); Mean Corpuscular HGB Conc 29.6 g/dL (30-55); Mean Corpuscular Hemoglobin 30.3 pg (27-33); Mean Corpuscular Volume 102.3 fl (85-98); Mean Platelet Volume 8.5 fL (7.4-10.4); Monocytes # 0.7 10^3/uL (0.2-0.9); Monocytes % 4.6 %; Neutrophils % 82.1 %; Nucleated Red Blood Cells % 0 %; Platelet Count 282 10^3/cmm (157-399); Red Blood Count 3.89 10^6/uL (3.85-5.65); Red Cell Distribution Width 12.8 % (12.1-15.1); White Blood Count 15.24 10^3/uL (3.29-11.43)
[2023-03-05 04:23] LABS: Troponin 5 6HR 12.73 ng/L (0-10); Troponin 5 6HR Delta 1.73 ng/L (0-12)
[2023-03-05 04:24] LABS: Blood Urea Nitrogen 18 mg/dL (8-23); C Reactive Protein 33.7 mg/L (0.0-4.9); Calcium 9.1 mg/dL (8.5-10.5); Carbon Dioxide 31 mmol/L (22-29); Chloride 98 mmol/L (98-107); Estmated Average Glucose 166; Glucose 197 mg/dL (65-115); Hemoglobin A1C 7.4 % (4.0-6.0); Magnesium 2.1 mg/dL (1.7-2.3); Osmolality Calculated 295 mOsm/kg (285-295); Phosphorus 3.9 mg/dL (2.5-4.5); Sodium 139 mmol/L (136-145)
[2023-03-05 04:33] LABS: ABG PH Result 7.29 (7.35-7.45); Base Excess ABG 5.2 mmol/L (-2.0-2.0); Blood Gas Allen Test Pos; Blood Gas Operator Identificat CAK; Blood Gas Sample Site Radial, left; Blood Gas Sample Type Arterial; HCO3 ABG 33.7 mmol/L (22-26); Oxygen Device BIPAP; PO2 ABG 70.4 mmHg (80.0-100.0); PO2 FiO2 Ratio Arterial Blood 0
[2023-03-05 04:34] LABS: ABG PCO2 70.8 mmHg (35-45)
[2023-03-05 04:43] LABS: Vitamin B12 772 pg/mL (232-1245)
[2023-03-05] MEDS: piperacillin-tazobactam 3.375 GM in sodium chloride 0.9% (plus) 50 ML IV ×3 (05:26→20:55)
--- NOTE | 2023-03-05 06:55 | CTR_ITS ---
PROCEDURE INFORMATION: Exam: CT Abdomen And Pelvis Without Contrast Exam date and time: 03/05/2023 8:30 AM Age: 77 years old Clinical indication: Other: Hepatic mets? ; Prior surgery; Surgery date: 6+ months; Surgery type: Back; Additional info: Hepatic nets TECHNIQUE: Imaging protocol: Computed tomography of the abdomen and pelvis without contrast. Radiation optimization: All CT scans at this facility use at least one of these dose optimization techniques: automated exposure control; mA and/or kV adjustment per patient size (includes targeted exams where dose is matched to clinical indication); or iterative reconstruction. REPORTING DATA: Count of CT and Cardiac NM exams in prior 12 months: This patient has received 3 known CTs and 0 known cardiac nuclear medicine studies in the 12 months prior to the current study. COMPARISON: CT abdomen pelvis w con* [id number] 03/14/2016 1:55 PM RADIATION DOSE METRICS: Total DLP (mGy-cm): 1164.01 FINDINGS: Tubes, catheters and devices: Lower thoracic neurostimulator. A vaguely seen area of diminished attenuation within the right lobe of the liver may be artifact related to beam hardening from the implanted neurostimulator control and power module. Ultrasound recommended if confirmation is required. Lungs: Bibasilar hypoventilatory changes. Liver: Normal. No mass. Gallbladder and bile ducts: Normal. No calcified stones. No ductal dilation. Pancreas: Normal. No ductal dilation. Spleen: Normal. No splenomegaly. Adrenal glands: Normal. No mass. Kidneys and ureters: Normal. No hydronephrosis. Stomach and bowel: Unremarkable. No obstruction. No mucosal thickening. Appendix: No evidence of appendicitis. Intraperitoneal space: Unremarkable. No free air. No significant fluid collection. Vasculature: Unremarkable. No abdominal aortic aneurysm. Lymph nodes: Unremarkable. No enlarged lymph nodes. Urinary bladder: The urinary bladder is collapsed around a Saucedo catheter. Reproductive: Unremarkable as visualized. Bones/joints: Prior lumbar laminectomy and fusion. Soft tissues: Unremarkable. CT/CT abdomen pelvis wo con [id number] IMPRESSION: Possible hepatic mass. See discussion above.
[2023-03-05 07:43] LABS: Reflex FDPQ test REFLEX FDP QUEST TES
[2023-03-05 07:53] LABS: INR 1.07 (0.8-1.2)
[2023-03-05 07:54] LABS: Fibrinogen 484 mg/dL (174-498); Partial Thromboplastin Time 36.2 SECONDS (23.9-36.7)
[2023-03-05 08:00] LABS: D Dimer 2.16 ug/mLFEU (0-0.59)
[2023-03-05 08:36] LABS: Carcinoembryonic Antigen 1.3 ng/mL (0.0-4.7); Tumor Marker Alpha Fetoprotein 3.7 ng/mL (0-8.3)
[2023-03-05 09:26] LABS: Glucose Point of Care 311 mg/dL (70-110)
--- NOTE | 2023-03-05 09:48 | PC.PHAR ---
pts' spouse states pt is getting supplements from [employer]. otc bottles in room include Fruit for Life tablets, Sindhu Fruit 500 mg capsules, Christophers lower bowel formula 450 mg veggie caps. pt has Veebow Melatonin 5 mg and 10 mg bottles in room. Pt has Duloxetine 30 mg and 60 mg rx bottles in room. 03/05/23
[2023-03-05 11:18] LABS: Glucose Point of Care 230 mg/dL (70-110)
--- NOTE | 2023-03-05 13:03 | PC.NURSE ---
Bipap removed at 11am while Dr Melendrez was rounding. Patient is still a little lethargic, but much more awake than earlier today. Dr melendrez requests Bipap be reapplied while patient is sleeping, or if mental status declines. Currently patient is alert to self, and location, unsure of date. According to this is similar to home baseline.
[2023-03-05] MEDS: metoprolol succinate ER (24 HR) 25 mg Tablet PO ×2 (13:21→17:22)
[2023-03-05] MEDS: HYDROcodone-acetaminophen 10-325 mg Tablet 1 TAB PO ×2 (13:21→23:02)
--- NOTE | 2023-03-05 15:00 | USR_ITS ---
PROCEDURE INFORMATION: Exam: US Soft Tissue Head and Neck, Thyroid Exam date and time: 03/05/2023 5:53 PM Age: 77 years old Clinical indication: Screening exam; Other; Myxedema, goiter TECHNIQUE: Imaging protocol: Real-time ultrasound scan of the neck with image documentation. Exam focused on the thyroid. COMPARISON: CT neck w con* [id number] 07/15/2019 8:28 AM FINDINGS: Right thyroid lobe: Diminutive. No nodules. Left thyroid lobe: Diminutive. No nodules. Isthmus: Diminutive. No nodules. US/US thyroid [id number] IMPRESSION: No nodules identified.
--- NOTE | 2023-03-05 15:00 | USR_ITS ---
PROCEDURE INFORMATION: Exam: US Abdomen, Limited; Right Upper Quadrant Exam date and time: 03/05/2023 5:25 PM Age: 77 years old Clinical indication: Screening exam; Other: Hepatobiliary TECHNIQUE: Imaging protocol: Real time ultrasound of the abdomen with image documentation. Limited exam focused on the right upper quadrant. COMPARISON: CT abdomen pelvis wo con [id number] 03/05/2023 8:30 AM FINDINGS: Liver: Unremarkable. Gallbladder: No gallstones. No gallbladder wall thickening or pericholecystic fluid. Negative sonographic Capps's sign, as per the performing carbonizer tester. Biliary ducts: Normal. No stones. No dilation. Pancreas: Unremarkable as visualized. Right kidney: No mass. No definite stones. No hydronephrosis. US/US abdomen limited [id number] IMPRESSION: No acute sonographic findings.
--- NOTE | 2023-03-05 15:04 | P.PN_ITS ---
Subjective 2 Subjective: Lethargic overnight, this morning she awakens to voice, more awake in the afternoon. Vitals/I&O/Wt Last Vital Signs Temp 100 F H 03/05/23 13:15 Pulse 82 03/05/23 14:58 Resp 18 03/05/23 13:15 BP 126/85 03/05/23 13:15 Pulse Ox 93 03/05/23 14:58 O2 Del Method Nasal Cannula 03/05/23 11:15 O2 Flow Rate 1 03/05/23 11:15 FiO2 30 03/05/23 14:58 03/05/23 03/05/23 03/05/23 06:59 14:59 22:59 Intake Total 250 / 250 450 / 450 Output Total 750 / 750 325 / 325 Balance -500 / -500 125 / 125 Weight last 48 hrs Weight 95.98 kg Weight 95.98 kg Weight 83.915 kg Physical Exam 2 Narrative: Visited by her . Const: COMMON NORMALS: patient oriented x3 GENERAL APPEARANCE: cooperative NUTRITIONAL APPEARANCE: obese OTHER: initially lethargic, but wakes up to voice, stays alert. Answers questions, provide history. HENMT: COMMON NORMALS: oropharynx normal Neck/C-Spine: COMMON NORMALS: no JVD Resp: OTHER: Difficult exam, possibly somewhat diminished air entry. Cardio: COMMON NORMALS: no JVD, regular rhythm, S1 normal heart sound present, S2 normal heart sound present and No murmurs present (Cardio) RHYTHM: regular rhythm HEART SOUNDS: S1 normal heart sound present and S2 normal heart sound present GI: COMMON NORMALS: Normal to inspection, nondistended, normoactive bowel sounds present, Soft to palpation and non-tender PALPATION: Yes Soft to palpation Extremity: COMMON NORMALS: no joint enlargement and no pedal edema Neuro: COMMON NORMALS: patient oriented x3 and moves all extremities Urinary Catheter Management: Saucedo: Cath Placed During This Visit: no Reason for Continuing Indwelling Catheter: Accurate Measurement of Urinary Output in Critically Ill Patients Data 03/05/23 03:19 03/05/23 03:19 Micro: Microbiology 03/04/23 23:07 Blood Culture - Preliminary Blood SPECIMEN COLLECTED 03/04/23 23:00 Blood Culture - Preliminary Blood SPECIMEN COLLECTED A&P Assessment and plan (1) Leg swelling: (2) Hypothyroidism: (3) Hx of type 2 diabetes mellitus: (4) GERD (gastroesophageal reflux disease): Qualifiers: Esophagitis presence: without esophagitis Qualified Code(s): K21.9 - Gastro-esophageal reflux disease without esophagitis (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 Becoming more alert. Change levothyroxine to 37.5 mg. Continue hydrocortisone. Reduce dose to 50 mg. Risk of hyperglycemia. Resume insulin, Monitor blood glucose. Reassess. BiPAP for now while asleep and as needed. With goiter, assess thyroid ultrasound. Trial of consistent carbohydrate clear liquid diet. Stop IV fluids. Continue care on medical surgical floor. Respiratory failure: With improvement, more alert. Weaning down on BiPAP, continue BiPAP while asleep and as needed. Continue treatment of myxedema coma. From history obtained from her , occasionally gasps for air during the night. Would benefit from Referral for sleep study. Possible UTI: Reviewed UA, reviewed prior cultures, continue Zosyn, follow- up urine culture. Possible hepatic mass: reviewed CT abdomen pelvis, possible hepatic mass Incidentally seen on CT. Brought up to patient's and 's attention. Ultrasound is recommended. Requested. Polypharmacy Avoid muscle relaxants DM2: Accu-Cheks requested, resume long-acting insulin, sliding scale insulin. Consistent carbohydrate diet. A1c reviewed, diabetes appears under control, 7.4. Attestations 2 Medical Necessity Statement*: Continue admission for assessment management of myxedema coma, respiratory failure, possible UTI, assessment of possible hepatic mass. 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
[2023-03-05 16:52] LABS: Glucose Point of Care 281 mg/dL (70-110)
[2023-03-05] MEDS: insulin lispro 100 unit/1 mL SUBCUT ×2 (17:22→21:09)
--- NOTE | 2023-03-05 17:28 | PC.NURSE ---
SHift SUmmary: Transferred to [facility] near end of shift. Uneventful day. REmoved from bipap at 11am. Patient has become more alert throughout the day. oriented to self and place, but not time or situation. According to this is her baseline, though she is a little more tired than her normal. Lump on through noticed today which does not affect breathing or swallowing, Dr melendrez notified. TOtal urine output has been 425mL.
[2023-03-05] MEDS: enoxaparin 40 mg/0.4 mL Syringe SUBCUT (20:55)
[2023-03-05 21:04] LABS: Glucose Point of Care 223 mg/dL (70-110)
[2023-03-05] MEDS: insulin glargine 100 units/1 mL 30 UNIT SUBCUT (21:10)
[2023-03-05] MEDS: hydrocortisone 100 mg/2 mL SDV 50 MG IVP (23:56)
[2023-03-06] VITALS (14 sets, daily range): BP systolic 128–152; BP diastolic 62–86; PULSE 67–91; RESP 11–20; TEMP 36.4–37; O2SAT 90–98
[2023-03-06] MEDS: piperacillin-tazobactam 3.375 GM in sodium chloride 0.9% (plus) 50 ML IV ×3 (04:58→20:46)
[2023-03-06 06:17] LABS: Basophils % 0.3 %; Eosinophils % 0.2 %; Hematocrit 33.7 % (36-47); Lymphocytes # 2.1 10^3/uL (0.8-4.8); Lymphocytes % 19.5 %; Mean Corpuscular HGB Conc 31.5 g/dL (30-55); Mean Corpuscular Hemoglobin 30.6 pg (27-33); Mean Corpuscular Volume 97.4 fl (85-98); Mean Platelet Volume 8.6 fL (7.4-10.4); Monocytes # 0.6 10^3/uL (0.2-0.9); Monocytes % 5.3 %; Neutrophils # 8.03 10^3/uL (1.8-7.7); Neutrophils % 73.9 %; Nucleated Red Blood Cells % 0 %; Platelet Count 279 10^3/cmm (157-399); Red Blood Count 3.46 10^6/uL (3.85-5.65); Red Cell Distribution Width 12.6 % (12.1-15.1); White Blood Count 10.87 10^3/uL (3.29-11.43)
[2023-03-06 06:30] LABS: Glucose Point of Care 186 mg/dL (70-110)
[2023-03-06 06:31] LABS: Blood Urea Nitrogen 14 mg/dL (8-23); Calcium 8.3 mg/dL (8.5-10.5); Carbon Dioxide 33 mmol/L (22-29); Chloride 99 mmol/L (98-107); Glucose 197 mg/dL (65-115); Osmolality Calculated 292 mOsm/kg (285-295); Sodium 138 mmol/L (136-145)
[2023-03-06] MEDS: insulin lispro 100 unit/1 mL SUBCUT ×4 (07:43→21:32)
[2023-03-06] MEDS: levothyroxine 100 mcg SDV 35 MCG IVP (07:44)
[2023-03-06] MEDS: duloxetine 60 mg Capsule PO (07:45)
[2023-03-06] MEDS: metoprolol succinate ER (24 HR) 25 mg Tablet PO ×2 (07:45→17:21)
[2023-03-06] MEDS: pantoprazole DR 40 mg Tablet PO (07:46)
[2023-03-06 10:53] LABS: Glucose Point of Care 238 mg/dL (70-110)
[2023-03-06 13:30] LABS: Iron 84 ug/dL (37-145); Percent Saturation 26.4 % (20-50); Thyroid Stimulating Hormone 51.02 uIU/mL (0.27-4.20); Total Iron Binding Capacity 317 mcg/dl; Unsaturated Iron Binding 233 ug/dL (112-347)
[2023-03-06] MEDS: HYDROcodone-acetaminophen 5-325 mg Tablet 2 TAB PO ×2 (13:45→22:25)
[2023-03-06 14:04] LABS: Free T4 Free Thyroxine 0.56 ng/dL (0.82-1.77)
--- NOTE | 2023-03-06 15:58 | PC.SOCIAL ---
IMM updated, signed and copy given to patient and placed in chart.
[2023-03-06] MEDS: enoxaparin 40 mg/0.4 mL Syringe SUBCUT (17:21)
[2023-03-06] MEDS: ALPRAZolam 0.5 mg Tablet PO (17:21)
[2023-03-06 17:23] LABS: Glucose Point of Care 205 mg/dL (70-110)
--- NOTE | 2023-03-06 17:44 | P.PN_ITS ---
Subjective 2 Subjective: Hospital course, labs appreciated. Seen with at bedside. Patient is awake and alert and able to have complete conversation. Denies any nausea, ting, headache. Asking if she can go home. Seen with dogs in bed. Denies any nausea, ting, headache. Remains on room air. Complaining of generalized myalgia and anxiety. Vitals/I&O/Wt Last Vital Signs Temp 98.3 F 03/06/23 11:10 Pulse 77 03/06/23 14:00 Resp 18 03/06/23 11:10 BP 147/83 03/06/23 11:10 Pulse Ox 94 03/06/23 11:10 O2 Del Method Room Air 03/06/23 11:10 O2 Flow Rate 1 03/05/23 11:15 FiO2 30 03/06/23 04:53 03/06/23 03/06/23 03/06/23 06:59 14:59 22:59 Intake Total 50 / 1790 410 / 410 50 / 460 Output Total 350 / 775 Balance -300 / 1015 410 / 410 50 / 460 Weight last 48 hrs Weight 102.92 kg Weight 95.98 kg Weight 95.98 kg Weight 83.915 kg Physical Exam 2 Narrative: Visited by her . Const: COMMON NORMALS: patient oriented x3 GENERAL APPEARANCE: cooperative NUTRITIONAL APPEARANCE: obese OTHER: Awake and alert, not lethargic. Able to have complete conversation. HENMT: COMMON NORMALS: oropharynx normal Neck/C-Spine: COMMON NORMALS: no JVD Resp: OTHER: Difficult exam, possibly somewhat diminished air entry. Cardio: COMMON NORMALS: no JVD, regular rhythm, S1 normal heart sound present, S2 normal heart sound present and No murmurs present (Cardio) RHYTHM: regular rhythm HEART SOUNDS: S1 normal heart sound present and S2 normal heart sound present GI: COMMON NORMALS: Normal to inspection, nondistended, normoactive bowel sounds present, Soft to palpation and non-tender PALPATION: Yes Soft to palpation Extremity: COMMON NORMALS: no joint enlargement and no pedal edema Neuro: COMMON NORMALS: patient oriented x3 and moves all extremities Urinary Catheter Management: Saucedo: Cath Placed During This Visit: no Reason for Continuing Indwelling Catheter: Other Data 03/06/23 05:30 03/06/23 05:30 Micro: Microbiology 03/04/23 21:29 Urine Culture - Preliminary Urine,Clean Catch Gram Negative Rods 03/04/23 23:07 Blood Culture - Preliminary Blood NEGATIVE TO DATE 03/04/23 23:00 Blood Culture - Preliminary Blood NEGATIVE TO DATE A&P Assessment and plan (1) Acute alteration in mental status: Most likely in setting of myxedema coma along with hypercapnic respiratory failure. Cannot rule out underlying sleep apnea. Resolved. (2) Myxedema coma: Appreciate current plan for admission. Repeat thyroid panel today. Patient seems to be resolving. States she is compliant with her medications. 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 For now increase dose to IV 50 mcg daily. Check thyroid panel every 48 hourly. (3) Hypothyroidism: (4) Leg swelling: (5) Hx of type 2 diabetes mellitus: (6) GERD (gastroesophageal reflux disease): Qualifiers: Esophagitis presence: without esophagitis Qualified Code(s): K21.9 - Gastro-esophageal reflux disease without esophagitis (7) Acute hypercapnic respiratory failure: Most likely in setting of baseline sleep apnea. Patient would benefit from sleep study as an outpatient. Plan Possible hepatic mass: reviewed CT abdomen pelvis, possible hepatic mass Incidentally seen on CT. Brought up to patient's and 's attention. Ultrasound is recommended. Requested. Polypharmacy Avoid muscle relaxants DM2: Accu-Cheks requested, resume long-acting insulin, sliding scale insulin. Consistent carbohydrate diet. A1c reviewed, diabetes appears under control, 7.4. CODE STATUS: Reviewed in detail with patient and at bedside. DNR/DNI. Start on soft mechanical dysphagia level 5 diet. Lovenox for DVT prophylaxis PT evaluation Attestations 2 Medical Necessity Statement*: Requires further hospitalization for management of resolving altered mental status in setting of myxedema coma, hypercapnic respiratory failure Diagnoses Acute alteration in mental status R41.82 Myxedema coma E03.5 Hypothyroidism E03.9 Leg swelling M79.89 Hx of type 2 diabetes mellitus Z86.39 Gastroesophageal reflux disease without esophagitis K21.9 Esophagitis presence: without esophagitis Acute hypercapnic respiratory failure J96.02
[2023-03-06 21:18] LABS: Glucose Point of Care 415 mg/dL (70-110)
[2023-03-06] MEDS: insulin glargine 100 units/1 mL 30 UNIT SUBCUT (21:32)
[2023-03-07] VITALS (11 sets, daily range): BP systolic 121–158; BP diastolic 79–88; PULSE 74–85; RESP 16–18; TEMP 36.4–36.8; O2SAT 95–100
[2023-03-07] MEDS: piperacillin-tazobactam 3.375 GM in sodium chloride 0.9% (plus) 50 ML IV ×2 (04:01→13:18)
[2023-03-07 06:01] LABS: Basophils # 0.1 10^3/uL (0.0-0.1); Basophils % 0.6 %; Eosinophils # 0.5 10^3/uL (0.0-0.8); Eosinophils % 4.8 %; Hematocrit 35.1 % (36-47); Lymphocytes # 2.3 10^3/uL (0.8-4.8); Lymphocytes % 22.7 %; Mean Corpuscular HGB Conc 31.3 g/dL (30-55); Mean Corpuscular Hemoglobin 30.9 pg (27-33); Mean Corpuscular Volume 98.6 fl (85-98); Mean Platelet Volume 8.3 fL (7.4-10.4); Monocytes % 9.9 %; Neutrophils # 6.22 10^3/uL (1.8-7.7); Neutrophils % 61.3 %; Nucleated Red Blood Cells % 0 %; Platelet Count 243 10^3/cmm (157-399); Red Blood Count 3.56 10^6/uL (3.85-5.65); Red Cell Distribution Width 12.6 % (12.1-15.1); White Blood Count 10.14 10^3/uL (3.29-11.43)
[2023-03-07 06:21] LABS: Alanine Aminotransferase 9 U/L (0-33); Albumin Level 3.3 g/dL (3.5-5.2); Alkaline Phosphatase 71 U/L (35-105); Anion Gap 11.7 (5-19); Aspartate Amino Transferase 13 U/L (0-32); Blood Urea Nitrogen 10 mg/dL (8-23); Calcium 8.4 mg/dL (8.5-10.5); Carbon Dioxide 31 mmol/L (22-29); Chloride 100 mmol/L (98-107); Globulin 3.1 g/dL (1.3-4.6); Glucose 63 mg/dL (65-115); Magnesium 2.1 mg/dL (1.7-2.3); Osmolality Calculated 285 mOsm/kg (285-295); Phosphorus 1.9 mg/dL (2.5-4.5); Potassium 3.7 mmol/L (3.5-5.1); Sodium 139 mmol/L (136-145); Total Bilirubin 0.3 mg/dL (0.15-1.2); Total Protein 6.4 g/dL (6.6-8.7)
[2023-03-07 07:10] LABS: Folate Level 18.2 ng/mL (4.8-37.3)
[2023-03-07] MEDS: HYDROcodone-acetaminophen 5-325 mg Tablet 2 TAB PO ×3 (08:38→23:32)
[2023-03-07] MEDS: duloxetine 60 mg Capsule PO (08:39)
[2023-03-07] MEDS: pantoprazole DR 40 mg Tablet PO (08:39)
[2023-03-07] MEDS: metoprolol succinate ER (24 HR) 25 mg Tablet PO ×2 (08:39→18:00)
[2023-03-07] MEDS: ALPRAZolam 0.5 mg Tablet PO ×2 (08:41→18:00)
[2023-03-07] MEDS: levothyroxine 100 mcg SDV 50 MCG IVP (09:43)
--- NOTE | 2023-03-07 11:40 | PC.NURSE ---
glucose level 106 at 0630 per DONNA Pickard
[2023-03-07] MEDS: insulin lispro 100 unit/1 mL SUBCUT ×3 (13:17→22:39)
--- NOTE | 2023-03-07 14:40 | PM.PN ---
Subjective Subjective: No acute events overnight. Patient seen with multiple family members at bedside. Sitting at edge of the bed, patient as per the family but is able to ambulate little bit around the bed with a walker. Patient has been participating in the exercises as per PT recommendations. Patient blood sugar seems to be elevated. Eager to go home as soon as possible. Vitals/I&O/Wt Last Vital Signs Temp 97.6 F 03/07/23 11:39 Pulse 78 03/07/23 11:39 Resp 16 03/07/23 11:39 BP 137/79 03/07/23 11:39 Pulse Ox 95 03/07/23 11:39 O2 Del Method Nasal Cannula 03/07/23 11:39 O2 Flow Rate 2 03/07/23 10:01 FiO2 30 03/06/23 23:38 03/06/23 03/07/23 03/07/23 22:59 06:59 14:59 Intake Total 770 / 1180 50 / 1230 650 / 650 Output Total 750 / 750 Balance 770 / 1180 -700 / 480 650 / 650 Weight last 48 hrs Weight 102.603 kg Weight 102.92 kg Physical Exam Narrative: Visited by her multiple family members including at bedside Const: COMMON NORMALS: patient oriented x3 GENERAL APPEARANCE: cooperative NUTRITIONAL APPEARANCE: obese OTHER: Awake and alert, not lethargic. Able to have complete conversation. HENMT: COMMON NORMALS: oropharynx normal Neck/C-Spine: COMMON NORMALS: no JVD Resp: OTHER: Difficult exam, possibly somewhat diminished air entry. Cardio: COMMON NORMALS: no JVD, regular rhythm, S1 normal heart sound present, S2 normal heart sound present and No murmurs present (Cardio) RHYTHM: regular rhythm HEART SOUNDS: S1 normal heart sound present and S2 normal heart sound present GI: COMMON NORMALS: Normal to inspection, nondistended, normoactive bowel sounds present, Soft to palpation and non-tender PALPATION: Yes Soft to palpation Extremity: COMMON NORMALS: no joint enlargement and no pedal edema Neuro: COMMON NORMALS: patient oriented x3 and moves all extremities Urinary Catheter Management: Saucedo: Cath Placed During This Visit: no Reason for Continuing Indwelling Catheter: Other Data 03/07/23 05:51 03/07/23 05:51 Micro: Microbiology 03/04/23 21:29 Urine Culture - Final Urine,Clean Catch Escherichia coli A&P Assessment and plan (1) Acute alteration in mental status: Most likely in setting of myxedema coma along with hypercapnic respiratory failure. Cannot rule out underlying sleep apnea. Resolved. (2) Myxedema coma: Appreciate current plan for admission. Repeat thyroid panel today. Patient seems to be resolving. States she is compliant with her medications. 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 For now increase dose to IV 50 mcg daily. Check thyroid panel every 48 hourly. (3) Hypothyroidism: (4) Leg swelling: (5) Hx of type 2 diabetes mellitus: (6) GERD (gastroesophageal reflux disease): Qualifiers: Esophagitis presence: without esophagitis Qualified Code(s): K21.9 - Gastro-esophageal reflux disease without esophagitis (7) Acute hypercapnic respiratory failure: Most likely in setting of baseline sleep apnea. Patient would benefit from sleep study as an outpatient. Plan Possible hepatic mass: reviewed CT abdomen pelvis, possible hepatic mass Incidentally seen on CT. Brought up to patient's and 's attention. Ultrasound is recommended. Requested. Polypharmacy Avoid muscle relaxants DM2: Accu-Cheks requested, resume long-acting insulin, sliding scale insulin. Consistent carbohydrate diet. A1c reviewed, diabetes appears under control, 7.4. CODE STATUS: Reviewed in detail with patient and at bedside. DNR/DNI. Start on soft mechanical dysphagia level 5 diet. Lovenox for DVT prophylaxis PT evaluation Plan for today: Continue with increased IV levothyroxine at 50 mcg daily. Telemetry monitoring. Continue with home antihypertensives including metoprolol succinate 25 mg twice daily. Continue duloxetine 60 mg daily. Urine culture growing E. coli. Sensitivities appreciated. Switch to oral Levaquin 500 mg daily. Will finish a 5-day course. Blood sugars elevated though fasting blood sugar today morning 63. Will plan to change Lantus to 25 units twice daily from 30 nightly. Repeat thyroid panel in AM. If thyroid panel improving or stable will plan to discharge within next 24 hours on adjusted levothyroxine and oral Levaquin for 5 days. Attestations Medical Necessity Statement*: Requires further hospitalization for recovering myxedema coma as levothyroxine doses are further adjusted and safe discharge planning is sought. Diagnoses Acute alteration in mental status R41.82 Myxedema coma E03.5 Hypothyroidism E03.9 Leg swelling M79.89 Hx of type 2 diabetes mellitus Z86.39 Gastroesophageal reflux disease without esophagitis K21.9 Esophagitis presence: without esophagitis Acute hypercapnic respiratory failure J96.02
[2023-03-07] MEDS: levoFLOXacin 500 mg Tablet PO (15:40)
--- NOTE | 2023-03-07 17:32 | PC.NURSE ---
blood sugar was 181 at 1100
--- NOTE | 2023-03-07 17:33 | PC.NURSE ---
blood sugar was 292 at 1700
[2023-03-07] MEDS: insulin glargine 100 units/1 mL 25 UNIT SUBCUT (18:00)
[2023-03-07 21:18] LABS: Glucose Point of Care 65 mg/dL (70-110)
[2023-03-07 21:19] LABS: Glucose Point of Care 292 mg/dL (70-110)
[2023-03-07 21:19] LABS: Glucose Point of Care 309 mg/dL (70-110)
[2023-03-07 21:19] LABS: Glucose Point of Care 106 mg/dL (70-110)
[2023-03-07 21:19] LABS: Glucose Point of Care 181 mg/dL (70-110)
[2023-03-08] VITALS (9 sets, daily range): BP systolic 132–159; BP diastolic 81–89; PULSE 69–89; RESP 15–18; TEMP 36.4–36.8; O2SAT 90–100
[2023-03-08 03:46] LABS: Basophils % 0.4 %; Eosinophils # 0.4 10^3/uL (0.0-0.8); Eosinophils % 5.1 %; Hematocrit 35.5 % (36-47); Lymphocytes # 1.8 10^3/uL (0.8-4.8); Lymphocytes % 21.7 %; Mean Corpuscular HGB Conc 30.4 g/dL (30-55); Mean Corpuscular Hemoglobin 30.8 pg (27-33); Mean Corpuscular Volume 101.1 fl (85-98); Mean Platelet Volume 8.3 fL (7.4-10.4); Monocytes # 0.9 10^3/uL (0.2-0.9); Monocytes % 11.2 %; Neutrophils # 5.13 10^3/uL (1.8-7.7); Neutrophils % 61.2 %; Nucleated Red Blood Cells % 0 %; Platelet Count 221 10^3/cmm (157-399); Red Blood Count 3.51 10^6/uL (3.85-5.65); Red Cell Distribution Width 12.8 % (12.1-15.1); White Blood Count 8.38 10^3/uL (3.29-11.43)
[2023-03-08 04:09] LABS: Alanine Aminotransferase 9 U/L (0-33); Albumin Level 3.1 g/dL (3.5-5.2); Alkaline Phosphatase 63 U/L (35-105); Anion Gap 10.9 (5-19); Aspartate Amino Transferase 9 U/L (0-32); Blood Urea Nitrogen 8 mg/dL (8-23); Calcium 8.1 mg/dL (8.5-10.5); Carbon Dioxide 30 mmol/L (22-29); Chloride 102 mmol/L (98-107); Globulin 2.3 g/dL (1.3-4.6); Glucose 77 mg/dL (65-115); Osmolality Calculated 285 mOsm/kg (285-295); Potassium 3.9 mmol/L (3.5-5.1); Sodium 139 mmol/L (136-145); Total Bilirubin 0.2 mg/dL (0.15-1.2); Total Protein 5.4 g/dL (6.6-8.7)
[2023-03-08 04:11] LABS: Free T4 Free Thyroxine 0.49 ng/dL (0.82-1.77); Phosphorus 2.3 mg/dL (2.5-4.5); Thyroid Stimulating Hormone 70.06 uIU/mL (0.27-4.20)
[2023-03-08] MEDS: levoFLOXacin 500 mg Tablet PO (05:01)
[2023-03-08] MEDS: HYDROcodone-acetaminophen 5-325 mg Tablet 2 TAB PO (05:56)
[2023-03-08 06:55] LABS: Glucose Point of Care 113 mg/dL (70-110)
[2023-03-08] MEDS: levothyroxine 100 mcg SDV 50 MCG IVP (08:44)
[2023-03-08] MEDS: metoprolol succinate ER (24 HR) 25 mg Tablet PO (08:49)
[2023-03-08] MEDS: insulin glargine 100 units/1 mL 25 UNIT SUBCUT (08:49)
[2023-03-08] MEDS: pantoprazole DR 40 mg Tablet PO (08:49)
[2023-03-08] MEDS: duloxetine 60 mg Capsule PO (08:49)
[2023-03-08 11:26] LABS: Glucose Point of Care 191 mg/dL (70-110)
--- NOTE | 2023-03-08 12:03 | P.DS_ITS ---
Discharge Providers Date of Admission: 03/04/23 22:55 Date of Discharge: March 08, 2023 Attending Provider at Admission: Luis Brady MD Attending Provider at Discharge: Campbell Thomas MD Primary Care Provider: Lashae Alvarenga MD Diagnoses at Discharge Discharge Diagnosis (1) Acute alteration in mental status: Status: Acute (2) Myxedema coma: Status: Acute (3) Hypothyroidism: Status: Acute (4) Leg swelling: Status: Acute (5) Hx of type 2 diabetes mellitus: Status: Acute (6) GERD (gastroesophageal reflux disease): Status: Acute Qualifiers: Esophagitis presence: without esophagitis Qualified Code(s): K21.9 - Gastro-esophageal reflux disease without esophagitis (7) Acute hypercapnic respiratory failure: Status: Acute (8) Obstructive sleep apnea: Status: Suspected Permanent problem details: Suspected. Should have sleep study. Reason for Visit Reason for Visit: CONFUSED Brief History: As per HPI: Sadaf Anderson is a 77 year old female with history of hypothyroidism, polypha rmacy, was admitted earlier this year for unresponsiveness, confusion polypharmacy related to UTI, urine culture grew E. coli presented with confusion. Patient is not a provide history, most information taken from previous records and . is stating that his is struggling with dementia because she cannot dress up to go to [employer] on Sundays and he is the one who is cooking food and helping her out most of the time. For last couple of days she has been confused, talking to herself, not able to get good sleep, has been tries not to sleep in the same room because she talks in her sleep, stating that she probably missed last 4 to 5 days of levothyroxine at home, otherwise she keeps levothyroxine in her bathroom and she takes levothyroxine first thing in the morning on empty stomach. As per the , levothyroxine dose was readjusted by the PCP. He is not 100% sure if she has been compliant with all the medications stating he cannot keep track of them. is endorsing that his is not able to carry out a decent conversation, yesterday she fell asleep while eating her food. No recent diarrhea, fever, chest pain. Hospital Course Hospital Course Patient was initially admitted to the ICU for further evaluation and management of altered mental status in setting of myxedema coma and hypercapnic respiratory failure in setting of obstructive sleep apnea. On admission she was found to have TSH of 115. She was started on IV levothyroxine and BiPAP ventilation. Patient responded well to the treatment and gradually and mentation improved. Her TSH levels have been resolving as well. She was seen by physical therapy who recommended home with home health. There was a concern for UTI for which urine culture was found to have E. coli. She was continued on IV antibiotics as per culture sensitivities. She has been discharged hemodynamically stable condition on adjusted levothyroxine dose with advised to repeat thyroid profile in 2 weeks. She is to have sleep study as an outpatient with a primary care provider at the earliest. She should see her primary care provider within next 1 week. She will continue Levaquin for 5 more days to finish a course of antibiotics for UTI. Physical Exam Narrative: Visited by her multiple family members including at bedside Const: COMMON NORMALS: patient oriented x3 GENERAL APPEARANCE: cooperative NUTRITIONAL APPEARANCE: obese OTHER: Awake and alert, not lethargic. Able to have complete conversation. HENMT: COMMON NORMALS: oropharynx normal Neck/C-Spine: COMMON NORMALS: no JVD Resp: OTHER: Difficult exam, possibly somewhat diminished air entry. Cardio: COMMON NORMALS: no JVD, regular rhythm, S1 normal heart sound present, S2 normal heart sound present and No murmurs present (Cardio) RHYTHM: regular rhythm HEART SOUNDS: S1 normal heart sound present and S2 normal heart sound present GI: COMMON NORMALS: Normal to inspection, nondistended, normoactive bowel sounds present, Soft to palpation and non-tender PALPATION: Yes Soft to palpation Extremity: COMMON NORMALS: no joint enlargement and no pedal edema Neuro: COMMON NORMALS: patient oriented x3 and moves all extremities Urinary Catheter Management: Saucedo: Cath Placed During This Visit: no Reason for Continuing Indwelling Catheter: Acute Urinary Retention or Obstruction Discharge Data Studies Completed and Pending Completed Studies During Hospitalization Category Date Time Status CT abdomen pelvis wo con [id number] Routine Cat Scan 03/05/23 06:[address] head wo con* [id number] Stat Cat Scan 03/04/23 21:16 Completed CTA PE [CT angio chest PE protcl [id number]] Stat Cat Scan 03/04/23 23:08 Completed XR chest 1V portable [id number] Stat Exams 03/04/23 21:07 Completed US abdomen limited [id number] Routine Ultrasound 03/05/23 15:00 Completed US thyroid [id number] Routine Ultrasound 03/05/23 15:00 Completed Pending at discharge Category Date Time Status Blood Culture Stat Lab 03/04/23 23:07 Results Fibrinogen Degradation Product Routine Lab 03/05/23 07:43 Received MAG [Magnesium] AM LABS Lab 03/09/23 04:00 Ordered PHOS [Phosphorus] AM LABS Lab 03/09/23 04:00 Ordered Radiology Impressions Chest X-Ray 03/04/23 21:07 IMPRESSION: 1. Cardiomegaly. 2. Thoracic spinal stimulator. 3. Right mid lung airspace infiltrate. Head CT 03/04/23 21:16 IMPRESSION: 1. Negative for intracranial hemorrhage or mass effect 2. Large amount of diffuse white matter disease likely reflecting chronic microvascular ischemic changes. 3. Left temporal lobe chronic atrophy. Chest CTA 03/04/23 23:08 IMPRESSION: 1. Negative for pulmonary embolus. 2. Several low-density hepatic lesions seen, measuring up to 21 mm in the right hepatic lobe, not seen with certainty on prior exam, dedicated CT abdomen pelvis advised for further evaluation as findings are somewhat concerning for metastatic disease. 3. Scattered subcentimeter short axis nonspecific mediastinal lymph nodes. 4. Cardiomegaly. 5. Coronary artery atherosclerotic calcifications. 6. Hepatic steatosis. 7. Gallbladder distended, ultrasound could further evaluate this. 8. Constipation. 9. Bilateral dependent airspace infiltrates. Abdomen/Pelvis CT 03/05/23 06:55 IMPRESSION: Possible hepatic mass. See discussion above. Abdomen Ultrasound 03/05/23 15:00 IMPRESSION: No acute sonographic findings. Thyroid Ultrasound 03/05/23 15:00 IMPRESSION: No nodules identified. Laboratory Results WBC 8.38 10^3/uL (3.29-11.43) 03/08/23 03:30 Corrected WBC Cancelled 03/04/23 19:50 RBC 3.51 10^6/uL (3.85-5.65) L 03/08/23 03:30 Hgb 10.80 g/dL (11.27-16.99) L 03/08/23 03:30 Hct 35.5 % (36-47) L 03/08/23 03:30 MCV 101.1 fl (85-98) H 03/08/23 03:30 MCH 30.8 pg (27-33) 03/08/23 03:30 MCHC 30.4 g/dL (30-55) 03/08/23 03:30 RDW 12.8 % (12.1-15.1) 03/08/23 03:30 Plt Count 221 10^3/cmm (157-399) 03/08/23 03:30 MPV 8.3 fL (7.4-10.4) 03/08/23 03:30 Gran % Cancelled 03/04/23 19:50 Neut % (Auto) 61.2 % 03/08/23 03:30 Lymph % (Auto) 21.7 % 03/08/23 03:30 [place] % (Auto) 11.2 % 03/08/23 03:30 Eos % (Auto) 5.1 % 03/08/23 03:30 Baso % (Auto) 0.4 % 03/08/23 03:30 Neut # (Auto) 5.13 10^3/uL (1.8-7.7) 03/08/23 03:30 Lymph # (Auto) 1.8 10^3/uL (0.8-4.8) 03/08/23 03:30 [place] # (Auto) 0.9 10^3/uL (0.2-0.9) 03/08/23 03:30 Eos # (Auto) 0.4 10^3/uL (0.0-0.8) 03/08/23 03:30 Baso # (Auto) 0.0 10^3/uL (0.0-0.1) 03/08/23 03:30 Absolute Gran (auto) Cancelled 03/04/23 19:50 Nucleated RBC % (auto) 0 % 03/08/23 03:30 Nucleated RBCs # 0.0 /100WBC 03/08/23 03:30 PT 14.20 SECONDS (12.1-14.9) 03/05/23 03:19 INR 1.07 (0.8-1.2) 03/05/23 03:19 APTT 36.2 SECONDS (23.9-36.7) 03/05/23 03:19 Fibrinogen 484 mg/dL (174-498) 03/05/23 03:19 D-Dimer 2.16 ug/mLFEU (0-0.59) H 03/05/23 03:19 Specimen Type Arterial 03/05/23 04:21 Sample Site Radial, left 03/05/23 04:21 ABG pH 7.29 (7.35-7.45) L 03/05/23 04:21 ABG pCO2 70.8 mmHg (35-45) H* 03/05/23 04:21 ABG pO2 70.4 mmHg (80.0-100.0) L 03/05/23 04:21 ABG PO2/FiO2 Ratio 0 03/05/23 04:21 ABG HCO3 33.7 mmol/L (22-26) H 03/05/23 04:21 ABG Base Excess 5.2 mmol/L (-2.0-2.0) H 03/05/23 04:21 Marlon Test Pos 03/05/23 04:21 Hematocrit 35.0 % (37-47) L 03/05/23 04:21 Hgb O2 Saturation 91.3 % (95-100) L 03/04/23 21:29 Carboxyhemoglobin 0.3 %THgb (0.4-20.1) L 03/04/23 21:29 Methemoglobin 1.0 % (0.4-1.5) 03/04/23 21:29 Total Hemoglobin 11.4 g/dL (12-16) L 03/04/23 21:29 O2 Delivery Device Bipap 03/05/23 04:21 O2 Liters/Min 2.0 % 03/04/23 21:29 FiO2 35.0 % 03/05/23 04:21 Tidal Volume 0.45 03/04/23 23:29 CPAP 10.0 cmH20 03/04/23 23:29 Customer Support Assistant ID Cak 03/05/23 04:21 Sodium 139 mmol/L (136-145) 03/08/23 03:30 Potassium 3.9 mmol/L (3.5-5.1) 03/08/23 03:30 Chloride 102 mmol/L (98-107) 03/08/23 03:30 Carbon Dioxide 30 mmol/L (22-29) H 03/08/23 03:30 Anion Gap 10.9 (5-19) 03/08/23 03:30 BUN 8 mg/dL (8-23) 03/08/23 03:30 Creatinine 0.5 mg/dL (0.5-0.9) 03/08/23 03:30 GFR Calculation Not Reportable 03/08/23 03:30 Glucose 77 mg/dL (65-115) 03/08/23 03:30 POC Glucose 191 mg/dL (70-110) H 03/08/23 11:22 Estimat Average Glucose 166 03/05/23 03:19 Hemoglobin A1c 7.4 % (4.0-6.0) H 03/05/23 03:19 Calculated Osmolality 285 mOsm/kg (285-295) 03/08/23 03:30 Lactic Acid 1.8 mmol/L (0.5-2.2) 03/04/23 22:27 Calcium 8.1 mg/dL (8.5-10.5) L 03/08/23 03:30 Phosphorus 2.3 mg/dL (2.5-4.5) L 03/08/23 03:30 Magnesium 2.0 mg/dL (1.7-2.3) 03/08/23 03:30 Iron 84 ug/dL (37-145) 03/06/23 05:30 TIBC 317 mcg/dl 03/06/23 05:30 % Saturation 26.4 % (20-50) 03/06/23 05:30 Unsat Iron Binding 233 ug/dL (112-347) 03/06/23 05:30 Total Bilirubin 0.2 mg/dL (0.15-1.2) 03/08/23 03:30 AST 9 U/L (0-32) 03/08/23 03:30 ALT 9 U/L (0-33) 03/08/23 03:30 Alkaline Phosphatase 63 U/L (35-105) 03/08/23 03:30 Ammonia 19 umol/L (11-51) 03/04/23 21:35 Troponin T Baseline 11 ng/L (0-10) H 03/04/23 19:50 Troponin T 120 Minute 13.46 ng/L (0-10) H 03/04/23 22:27 Delta Troponin T 2.46 ABS# (0-10) 03/04/23 22:27 Troponin T Hi Sens 6Hr 12.73 ng/L (0-10) H 03/05/23 03:19 Troponin T Hi Sens 6Hr Delta 1.73 ng/L (0-12) 03/05/23 03:19 C-Reactive Protein 33.7 mg/L (0.0-4.9) H 03/05/23 03:19 NT-Pro-B Natriuret Pep 59 pg/mL (0-450) 03/04/23 21:45 Total Protein 5.4 g/dL (6.6-8.7) L 03/08/23 03:30 Albumin 3.1 g/dL (3.5-5.2) L 03/08/23 03:30 Globulin 2.3 g/dL (1.3-4.6) 03/08/23 03:30 Tumor Marker AFP 3.7 ng/mL (0-8.3) 03/05/23 03:19 Carcinoembryonic Ag 1.3 ng/mL (0.0-4.7) 03/05/23 03:19 CA 125 Antigen 31.0 U/mL (0-35) 03/05/23 03:19 Vitamin B12 772 pg/mL (232-1245) 03/05/23 03:19 Folate 18.2 ng/mL (4.8-37.3) 03/07/23 05:51 TSH 70.06 uIU/mL (0.27-4.20) H 03/08/23 03:30 Free T4 0.49 ng/dL (0.82-1.77) L 03/08/23 03:30 Random Cortisol 15.29 ug/dL (2.47-19.5) 03/04/23 21:35 Urine Color Yellow (Yellow) 03/04/23 21:29 Urine Appearance Hazy (CLEAR) A 03/04/23 21:29 Urine pH 5 (5-7) 03/04/23 21:29 Ur Specific [place] 1.020 (1.005-1.030) 03/04/23 21:29 Urine Protein Trace (Negative) 03/04/23 21:29 Urine Glucose (UA) Norm (Normal) 03/04/23 21:29 Urine Ketones 1+ (Negative) H 03/04/23 21:29 Urine Blood Trace (Negative) H 03/04/23 21:29 Urine Nitrate Positive (Negative) H 03/04/23 21:29 Urine Bilirubin 1+ (Negative) H 03/04/23 21:29 Urine Urobilinogen Neg mg/dL (Negative) 03/04/23 21:29 Ur Leukocyte Esterase Trace (Negative) H 03/04/23 21:29 Urine RBC 0-4 /hpf (0-2) H 03/04/23 21:29 Urine WBC 0-4 /hpf (0-5) H 03/04/23 21:29 Ur Squamous Epith Cells Rare /hpf (0-5) 03/04/23 21:29 Amorphous Sediment Not Reportable 03/04/23 21:29 Urine Bacteria 4+ /hpf (NONE) H 03/04/23 21:29 Urine Mucus 1+ /hpf 03/04/23 21:29 Vitals Last Vital Signs Temp 97.5 F L 03/08/23 11:32 Pulse 89 03/08/23 11:32 Resp 17 03/08/23 11:32 BP 139/89 03/08/23 11:32 Pulse Ox 97 03/08/23 11:32 O2 Del Method Room Air 03/08/23 11:32 O2 Flow Rate 2 03/07/23 21:15 FiO2 30 03/08/23 04:25 Discharge Plan Discharge Patient Disposition: Home Condition: Serious Prescriptions: New levofloxacin 500 mg Tablet 500 mg PO DAILY@0600 5 Days Qty: 5 0RF levothyroxine 137 mcg capsule 137 mcg PO DAILY Qty: 30 0RF Continued docusate sodium 100 mg capsule 100 mg PO BID furosemide 20 mg tablet 20 mg PO DAILY Qty: 100 3RF nitroglycerin 0.4 mg tablet, sublingual 0.4 mg sublingual Q5M PRN (Reason: chest pain) Qty: 50 3RF Rx Instructions: until response; do not exceed 3 doses per episode potassium chloride 10 mEq tablet extended release 10 meq PO DAILY Qty: 100 3RF hydrocodone-acetaminophen 10-325 mg tablet 1 tab PO QID PRN (Reason: Pain) pramipexole 0.5 mg tablet 0.5 mg PO BEDTIME metformin 500 mg tablet extended release 24 hr 500 mg PO BID Novolog FlexPen U-100 Insulin 100 unit/mL (3 mL) insulin pen See Rx Instructions .ROUTE .COMPLEX Rx Instructions: 16 UNITS subcutaneously QAM, 18 UNITS AT NOON, 16 UNITS AT SUPPER PLUS SLIDING SCALE Levemir U-100 Insulin 100 unit/mL solution 30 unit SUBCUT BEDTIME omeprazole 40 mg capsule,delayed release(DR/EC) 40 mg PO DAILY tizanidine 4 mg tablet 4 mg PO BEDTIME 30 Days Qty: 30 0RF simethicone 125 mg Tablet 125 mg PO DAILY melatonin bottle 10 mg PO BEDTIME PRN (Reason: Sleep) diphenhydramine HCl 25 mg Tablet 25 mg PO BEDTIME duloxetine 60 mg capsule,delayed release(DR/EC) 60 mg PO DAILY niacin 100 mg Tablet 100 mg PO BEDTIME Probiotic 3 billion cell Capsule 3,000 mmu cells PO DAILY Rx Instructions: administer with a meal Fruit and Vegetable Daily 5-6-150 mg Capsule 1 cap PO BID metoprolol succinate 25 mg tablet extended release 24 hr See Rx Instructions .ROUTE .COMPLEX 30 Days Qty: 180 3RF Dose Instruction: Take 1 tablet by mouth twice daily Rx Instructions: Take 1 tablet by mouth twice daily Held isosorbide mononitrate 60 mg tablet extended release 24 hr 60 mg PO DAILY Qty: 90 0RF Hold Instructions: Resume on 03/15/23. amlodipine 5 mg tablet 5 mg PO DAILY Qty: 30 5RF Hold Instructions: Resume on 03/15/23. Discontinued duloxetine 30 mg capsule,delayed release(DR/EC) 60 mg PO DAILY levothyroxine 50 mcg tablet 50 mcg PO DAILY Discharge Orders: Discharge Order (Routine); Ordered 03/08/23 Ordered By: Campbell Thomas Referrals: Lashae Alvarenga MD [Primary Care Provider] - 03/24/23 9:45 am Discharge Diet: Usual diet Discharge Activity: Resume usual activity and Increase activity as tolerated Patient Instructions: Levothyroxine (By mouth), Levofloxacin (By mouth), Myxedema Coma (GEN), Altered Mental Status (ED), Opioid Safety Activity Restrictions/Additional Instructions: Soft mechanical diet Dose of levothyroxine has been adjusted. Check Thyroid profile within next 2 weeks. Take Levaquin which is the antibiotic for 5 more days. Please follow-up with a primary care provider onsite appointment. You should have sleep study at the earliest. Discharge Attestations Time Spent in Discharge Care*: greater than 30 min Specific Discharge Activities: educating patient, educating and/or supporting family/caregiver, discussing with pcp/other providers, discussing with case resolution specialist/social workers/dc planners, documenting/other paperwork and evaluating patient/reviewing data Quality Metrics Clinical Quality Measures [ No reported AMI, CVA or VTE this stay] Coding Level of Care Code 85955 Total time (in minutes) for Discharge: 60 Diagnoses Acute alteration in mental status R41.82 Myxedema coma E03.5 Hypothyroidism E03.9 Leg swelling M79.89 Hx of type 2 diabetes mellitus Z86.39 Gastroesophageal reflux disease without esophagitis K21.9 Esophagitis presence: without esophagitis Acute hypercapnic respiratory failure J96.02 Obstructive sleep apnea G47.33
[2023-03-08] MEDS: insulin lispro 100 unit/1 mL SUBCUT (12:23)
[2023-03-09 00:49] LABS: Fibrinogen Degradation Product <5 mcg/mL (LESS THAN 5)
== END 2023-03-08 12:56 | disposition home or self-care (01) | DRG 80 ==
LOC: ER 22:45 → ICU 23:32 → MEDSURG 03-05 16:55
PROVIDERS: Internal Medicine; Admitting Provider Internal Medicine; Emergency Provider Emergency Medicine; PCP Family Medicine; Visit Provider Student in an Organized Health Care Education/Training Program
DX: E03.5 Myxedema coma (principal); J96.02 Acute respiratory failure with hypercapnia; E87.29 Other acidosis; N39.0 Urinary tract infection, site not specified; E03.9 Hypothyroidism, unspecified; I10 Essential (primary) hypertension; M79.7 Fibromyalgia; G25.81 Restless legs syndrome; K21.9 Gastro-esophageal reflux disease without esophagitis; Z87.891 Personal history of nicotine dependence; E11.9 Type 2 diabetes mellitus without complications; G47.33 Obstructive sleep apnea (adult) (pediatric); R16.0 Hepatomegaly, not elsewhere classified; B96.20 Unspecified Escherichia coli [E. coli] as the cause of diseases classified elsewhere
CPT/HCPCS: 36415; 36416; 36600; 70450; 71045; 71275; 74176; 76536; 76705; 80048; 80053; 81001; 82105; 82140; 82378; 82533; 82607; 82746; 82803; 82805; 82962; 83036; 83540; 83550; 83605; 83735; 83880; 84100; 84439; 84443; 84484; 85025; 85362; 85378; 85384; 85610; 85730; 86140; 86304; 87040; 87077; 87086; 87186; 93005; 94660; 94762; 96365; 96367; 96372; 97110; 97116; 97161; 97530; 99291; J1650; J1720; J1815; J2543; J3370; J3490; J7030; J7050; Q9967

== ENCOUNTER 2023-03-12 20:15 | Inpatient (IN) | payer MEDICARE, OTHER, SELFPAY ==
[2023-03-12 20:16] VITALS: BP 152/72; PULSE 90; RESP 22; TEMP 36.9; O2SAT 94; BMI 51.2
--- NOTE | 2023-03-12 20:31 | CTR_ITS ---
PROCEDURE INFORMATION: Exam: CT Head Without Contrast Exam date and time: 03/12/2023 8:47 PM Age: 77 years old Clinical indication: Altered mental status/memory loss; Patient HX: EMS arrivla for lethargy and slurred speech; Additional info: AMS TECHNIQUE: Imaging protocol: Computed tomography of the head without contrast. Radiation optimization: All CT scans at this facility use at least one of these dose optimization techniques: automated exposure control; mA and/or kV adjustment per patient size (includes targeted exams where dose is matched to clinical indication); or iterative reconstruction. REPORTING DATA: Count of CT and Cardiac NM exams in prior 12 months: This patient has received 5 known CTs and 0 known cardiac nuclear medicine studies in the 12 months prior to the current study. COMPARISON: CT head wo con* [id number] 03/04/2023 9:45 PM RADIATION DOSE METRICS: Total DLP (mGy-cm): 915.64 FINDINGS: Limitations: The study is motion degraded. Brain: No acute infarct. No hemorrhage. Stable involutional changes of the brain. No mass effect. Cerebral ventricles: Stable ventricular size. No ventriculomegaly. Paranasal sinuses: No significant inflammation. No fluid levels. Mastoid air cells: Visualized mastoid air cells are well aerated. Bones/joints: Unremarkable. No acute fracture. Soft tissues: Unremarkable. CT/CT head wo con* [id number] IMPRESSION: No acute intracranial abnormality.
--- NOTE | 2023-03-12 20:32 | XRR_ITS ---
PROCEDURE INFORMATION: Exam: XR Chest Exam date and time: 03/12/2023 8:42 PM Age: 77 years old Clinical indication: Shortness of breath; Prior surgery; Surgery date: 6+ months; Surgery type: Cervical fusion. Stimulator; Patient HX: EMS arrival for SOB; Additional info: AMS TECHNIQUE: Imaging protocol: Radiologic exam of the chest. Views: 1 view. COMPARISON: CT angio chest PE protcl [id number] 03/05/2023 12:10 AM FINDINGS: Lungs: The lungs are hypoinflated. There is a left lower lobe infiltrate or atelectasis present. Pleural spaces: Unremarkable. No pleural effusion. No pneumothorax. Heart/Mediastinum: Stable heart size. Bones/joints: Thoracic neurostimulator. Lower cervical spinal fusion changes. XR/XR chest 1V portable [id number] IMPRESSION: The lungs are hypoinflated. There is a left lower lobe infiltrate or atelectasis present. Correlate for infection.
[2023-03-12] MEDS: ipratropium-albuterol 3 mL Neb INHALATION (20:54)
[2023-03-12 20:56] VITALS: PULSE 87; RESP 20; O2SAT 92
[2023-03-12 21:05] VITALS: PULSE 84; RESP 24; O2SAT 92
[2023-03-12 21:05] LABS: ABG PH Result 7.36 (7.35-7.45); Arterial Blood Gas Hematocrit 31.1 % (37-47); Base Excess ABG 4.5 mmol/L (-2.0-2.0); Blood Gas Allen Test Pos; Blood Gas Sample Type Arterial; Carboxyhemoglobin 0.3 %THgb (0.4-20.1); HGB O2 Sat 88.1 % (95-100); Methemoglobin 0.5 % (0.4-1.5); PO2 ABG 61.5 mmHg (80.0-100.0); Total Hemoglobin 10.1 g/dL (12-16)
[2023-03-12 21:06] LABS: Blood Gas Operator Identificat MONRO; Blood Gas Sample Site Radial, right; Oxygen Device ROOM AIR; PO2 FiO2 Ratio Arterial Blood 0
--- NOTE | 2023-03-12 21:21 | ECG_ITS ---
[facility] Test Date: 2023-03-12 Pat Name: Sadaf Anderson Department: Room: Gender: Female Telephone Directory Deliverer: : 1945 Requested By: Elmo Prieto Order Number: [id number] Huy MD: Chip Riley M.D. Measurements Intervals [place] Rate: 84 P: 21 DE: 165 QRS: 7 QRSD: 88 T: 19 QT: 378 QTc: 448 Interpretive Statements SINUS RHYTHM LOW QRS VOLTAGE IN PRECORDIAL LEADS [QRS DEFLECTION < 1.0 mV IN CHEST LEADS] Compared to ECG 03/04/2023 23:34:39 No significant changes Electronically Signed On 03-13-2023 15:55:19 BLAST SETTER by Chip Riley M.D. [id number]
[2023-03-12 22:27] VITALS: BP 148/99; PULSE 85; O2SAT 98
[2023-03-12 22:38] LABS: Basophils % 0.3 %; Eosinophils # 0.3 10^3/uL (0.0-0.8); Eosinophils % 2.3 %; Hematocrit 33.5 % (36-47); Lymphocytes # 1.7 10^3/uL (0.8-4.8); Lymphocytes % 13.9 %; Mean Corpuscular HGB Conc 30.7 g/dL (30-55); Mean Corpuscular Hemoglobin 30.7 pg (27-33); Mean Platelet Volume 8.6 fL (7.4-10.4); Monocytes % 8.4 %; Neutrophils # 8.79 10^3/uL (1.8-7.7); Neutrophils % 74.2 %; Nucleated Red Blood Cells % 0 %; Platelet Count 229 10^3/cmm (157-399); Red Blood Count 3.35 10^6/uL (3.85-5.65); Red Cell Distribution Width 12.7 % (12.1-15.1); White Blood Count 11.85 10^3/uL (3.29-11.43)
[2023-03-12 22:40] LABS: Add Urine Microscopic? NO; Charge for UA Resulting for Rev
[2023-03-12 22:50] LABS: Lactic Sepsis W/Reflex 1.5 mmol/L (0.5-2.2)
[2023-03-12 22:54] LABS: Urine Appearance Clear (CLEAR); Urine Color Yellow (Yellow)
[2023-03-12 22:55] LABS: Bilirubin Urine 1+ (Negative); Blood Urine Neg (Negative); Glucose Urine UA 2+ (Normal); Ketones Urine Negative (Negative); Leukocyte Esterase Urine Negative (Negative); Nitrate Urine Negative (Negative); Protein Urine Neg (Negative); Urobilinogen Urine Neg (Negative); pH Urine 5 (5-7)
[2023-03-12 22:59] LABS: Alanine Aminotransferase 12 U/L (0-33); Albumin Level 3.7 g/dL (3.5-5.2); Alkaline Phosphatase 75 U/L (35-105); Anion Gap 10.7 (5-19); Aspartate Amino Transferase 11 U/L (0-32); Blood Urea Nitrogen 19 mg/dL (8-23); Calcium 9.2 mg/dL (8.5-10.5); Carbon Dioxide 32 mmol/L (22-29); Chloride 99 mmol/L (98-107); Free T4 Free Thyroxine 1.13 ng/dL (0.82-1.77); Globulin 2.9 g/dL (1.3-4.6); Glucose 281 mg/dL (65-115); Osmolality Calculated 296 mOsm/kg (285-295); Potassium 4.7 mmol/L (3.5-5.1); Sodium 137 mmol/L (136-145); Thyroid Stimulating Hormone 47.02 uIU/mL (0.27-4.20); Total Bilirubin 0.2 mg/dL (0.15-1.2); Total Protein 6.6 g/dL (6.6-8.7)
--- NOTE | 2023-03-12 23:02 | ED_ITS ---
HPI - Altered Mental Status 2 General: Chief Complaint: Altered Mental Status Stated Complaint: lethargic Time Seen by Provider: 03/12/23 20:25 History of Present Illness: 77-year-old patient comes in from home. She was admitted last week for urinary tract infection, altered mental status, and hypercapnic respiratory failure. 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 She has been taking this appropriately. She has been in increasing lethargic again over the past 24 to 48 hours her says. She is not as lethargic as she was on her prior admission. She can answer questions, however she is generally weak, and cannot really get out of bed. She denies fever. Review of Systems 2 Const: Denies: fever(s) Eyes: Denies: change in vision ENMT: Denies: throat pain Card: Denies: chest pain Resp: Reports: dyspnea and non-productive cough GI: Denies: abdominal pain, nausea or vomiting Neuro: Reports: headache(s), dizziness, confusion and behavioral changes PFSH ED 2 PFSH: Medical History At risk for polypharmacy Acute hypotension AMS (altered mental status) UTI (urinary tract infection) Aphthous ulcer of mouth Weakness Arthralgia Hiatal hernia Fatigue Bilateral leg cramps Vitamin D deficiency Hypothyroidism Fibromyalgia Hypertension Hx of type 2 diabetes mellitus Tachycardia Restless leg syndrome GERD (gastroesophageal reflux disease) Dyspnea Anemia Abnormal stress test Surgical History Hx of repair of left rotator cuff History of carpal tunnel release History of back surgery x 2 History of repair of hiatal hernia History of surgery on wrist Hx of varicose vein ligation Hx of neck surgery Hx of tubal ligation Family History Father Diabetes CAD (coronary artery disease) Hypertension Brother Diabetes Suicide Grandfather Diabetes CAD (coronary artery disease) Grandmother Diabetes CAD (coronary artery disease) Family/Other Diabetes CAD (coronary artery disease) Mother CAD (coronary artery disease) Denies family history of Clotting disorder Dementia Chronic kidney disease (CKD) Anesthesia complication Bleeding disorder Lung disease Cancer Stroke Social History Smoking and tobacco/nicotine status: former use of tobacco/nicotine Alcohol intake: never Substance/Drug Use: never Physical Exam 2 Const: GENERAL APPEARANCE: cooperative and frail appearing HENMT: COMMON NORMALS: normocephalic, atraumatic and Normal external nose present HEAD & SCALP: normocephalic and atraumatic FACE & SINUS: normal facial exam NOSE: Normal external nose present Eye: COMMON NORMALS: Equal, round and reactive pupils present and EOMs intact bilaterally PUPIL: Yes Equal, round and reactive pupils present Neck/C-Spine: GENERAL: Yes trachea midline Chest: CHEST: Yes Symmetrical chest wall rise Resp: EFFORT & INSPECTION: Yes labored AUSCULTATION: diminished lung sounds Cardio: COMMON NORMALS: regular rate and regular rhythm RATE: regular rate RHYTHM: regular rhythm GI: COMMON NORMALS: Normal to inspection, nondistended, normoactive bowel sounds present and Soft to palpation PALPATION: Yes Soft to palpation Extremity: GENERAL: Yes edema Neuro: [place] COMA SCALE: document GCS findings [place] coma scale eye opening: Spontaneous [place] coma scale verbal response: Confused [place] coma scale motor response: [place]bey commands [place] coma scale total score: 14 Psych: ATTITUDE: Yes calm Urinary Catheter Management: Saucedo: Cath Placed During This Visit: yes Urinary Catheter Date of Insertion: 03/12/23 Urinary Catheter Time of Insertion: 20:10 Course 2 Vital Signs: Vital signs: Vital Signs Temperature 97.3 F L 03/13/23 15:45 Pulse Rate 85 03/13/23 15:45 Respiratory Rate 18 03/13/23 15:45 Blood Pressure 120/72 03/13/23 15:45 Pulse Oximetry 96 03/13/23 15:45 Oxygen Delivery Me thod Nasal Cannula 03/13/23 15:45 Oxygen Flow Rate 2 03/12/23 22:27 MDM - Altered Mental Status Medical Decision Making Patient is mildly hypertensive. She is maintaining a room air saturation at this point, although it is mildly low, not on blood gas testing, her pO2 is 55. She is placed on 2 L. Chest x-ray shows hyperinflated lungs. Left lower lobe infiltrate is present. White blood cell count is 12. Hemoglobin is 10 which is stable from prior. Glucose is 281, creatinine is 0.8. head CT is nonacute. Urinalysis at this point is negative. This young lady is obviously failing at home. She is generally weak, cannot get out of bed. She had mental status changes, and according to her , has not been doing well, with hallucinations, etc. Last time she was admitted, she was adamant about going home, not being transferred to a correction environment. Hospitalist will see the patient. Lab Data 03/13/23 04:06 03/13/23 04:[address] 03/12/23 20:31 IMPRESSION: No acute intracranial abnormality. Chest X-Ray 03/12/23 20:32 IMPRESSION: The lungs are hypoinflated. There is a left lower lobe infiltrate or atelectasis present. Correlate for infection. Laboratory Results WBC 11.85 10^3/uL (3.29-11.43) H 03/12/23 22:25 RBC 3.35 10^6/uL (3.85-5.65) L 03/12/23 22:25 Hgb 10.30 g/dL (11.27-16.99) L 03/12/23 22:25 Hct 33.5 % (36-47) L 03/12/23 22:25 MCV 100.0 fl (85-98) H 03/12/23 22:25 MCH 30.7 pg (27-33) 03/12/23 22:25 MCHC 30.7 g/dL (30-55) 03/12/23 22:25 RDW 12.7 % (12.1-15.1) 03/12/23 22:25 Plt Count 229 10^3/cmm (157-399) 03/12/23 22:25 MPV 8.6 fL (7.4-10.4) 03/12/23 22:25 Neut % (Auto) 74.2 % 03/12/23 22:25 Lymph % (Auto) 13.9 % 03/12/23 22:25 [place] % (Auto) 8.4 % 03/12/23 22:25 Eos % (Auto) 2.3 % 03/12/23 22:25 Baso % (Auto) 0.3 % 03/12/23 22:25 Neut # (Auto) 8.79 10^3/uL (1.8-7.7) H 03/12/23 22:25 Lymph # (Auto) 1.7 10^3/uL (0.8-4.8) 03/12/23 22:25 [place] # (Auto) 1.0 10^3/uL (0.2-0.9) H 03/12/23 22:25 Eos # (Auto) 0.3 10^3/uL (0.0-0.8) 03/12/23 22:25 Baso # (Auto) 0.0 10^3/uL (0.0-0.1) 03/12/23 22:25 Nucleated RBC % (auto) 0 % 03/12/23 22:25 Nucleated RBCs # 0.0 /100WBC 03/12/23 22:25 Specimen Type Arterial 03/12/23 20:52 Sample Site Radial, right 03/12/23 20:52 ABG pH 7.36 (7.35-7.45) 03/12/23 20:52 ABG pCO2 55.0 mmHg (35-45) H 03/12/23 20:52 ABG pO2 61.5 mmHg (80.0-100.0) L 03/12/23 20:52 ABG PO2/FiO2 Ratio 0 03/12/23 20:52 ABG HCO3 31.0 mmol/L (22-26) H 03/12/23 20:52 ABG Base Excess 4.5 mmol/L (-2.0-2.0) H 03/12/23 20:52 Marlon Test Pos 03/12/23 20:52 Hematocrit 31.1 % (37-47) L 03/12/23 20:52 Hgb O2 Saturation 88.1 % (95-100) L 03/12/23 20:52 Carboxyhemoglobin 0.3 %THgb (0.4-20.1) L 03/12/23 20:52 Methemoglobin 0.5 % (0.4-1.5) 03/12/23 20:52 Total Hemoglobin 10.1 g/dL (12-16) L 03/12/23 20:52 O2 Delivery Device Room air 03/12/23 20:52 FiO2 21.0 % 03/12/23 20:52 Behavior Support Specialist ID Monro 03/12/23 20:52 Sodium 137 mmol/L (136-145) 03/12/23 22:25 Potassium 4.7 mmol/L (3.5-5.1) 03/12/23 22:25 Chloride 99 mmol/L (98-107) 03/12/23 22:25 Carbon Dioxide 32 mmol/L (22-29) H 03/12/23 22:25 Anion Gap 10.7 (5-19) 03/12/23 22:25 BUN 19 mg/dL (8-23) 03/12/23 22:25 Creatinine 0.8 mg/dL (0.5-0.9) 03/12/23 22:25 GFR Calculation Not Reportable 03/12/23 22:25 Glucose 281 mg/dL (65-115) H 03/12/23 22:25 Calculated Osmolality 296 mOsm/kg (285-295) H 03/12/23 22:25 Lactic Acid 1.5 mmol/L (0.5-2.2) 03/12/23 22:25 Calcium 9.2 mg/dL (8.5-10.5) 03/12/23 22:25 Total Bilirubin 0.2 mg/dL (0.15-1.2) 03/12/23 22:25 AST 11 U/L (0-32) 03/12/23 22:25 ALT 12 U/L (0-33) 03/12/23 22:25 Alkaline Phosphatase 75 U/L (35-105) 03/12/23 22:25 NT-Pro-B Natriuret Pep 78 pg/mL (0-450) 03/12/23 22:25 Total Protein 6.6 g/dL (6.6-8.7) 03/12/23 22:25 Albumin 3.7 g/dL (3.5-5.2) 03/12/23 22:25 Globulin 2.9 g/dL (1.3-4.6) 03/12/23 22:25 TSH 47.02 uIU/mL (0.27-4.20) H 03/12/23 22:25 Free T4 1.13 ng/dL (0.82-1.77) 03/12/23 22:25 Urine Color Yellow (Yellow) 03/12/23 22:22 Urine Appearance Clear (CLEAR) 03/12/23 22:22 Urine pH 5 (5-7) 03/12/23 22:22 Ur Specific [place] 1.020 (1.005-1.030) 03/12/23 22:22 Urine Protein Neg (Negative) 03/12/23 22:22 Urine Glucose (UA) 2+ (Normal) H 03/12/23 22:22 Urine Ketones Negative (Negative) 03/12/23 22:22 Urine Blood Neg (Negative) 03/12/23 22:22 Urine Nitrate Negative (Negative) 03/12/23 22:22 Urine Bilirubin 1+ (Negative) H 03/12/23 22:22 Urine Urobilinogen Neg mg/dL (Negative) 03/12/23 22:22 Ur Leukocyte Esterase Negative (Negative) 03/12/23 22:22 All radiology interpretation(s) finalized by discharge Discharge Plan Discharge Patient Disposition: Admitted As Inpatient Admit Provider: Luis Brady Clinical Impression: Hypothyroidism, Acute alteration in mental status, Acute hypercapnic respiratory failure Condition: Stable Coding Level of Care Code ED Log Skidder for Sal Monet
--- NOTE | 2023-03-12 23:24 | P.HP_ITS ---
Providers/Chief Complaint 2 Primary Care Provider: Lashae Alvarenga MD Chief Complaint: lethargic History of Present Illness Sadaf Anderson is a 77 year old female was recently admitted to the ICU for hypercapnic respite failure related to myxedema coma with abnormal TSH, patient did well on BiPAP she was discharged on antibiotics with readjusted dose of levothyroxine, she is returning with chief complaint of generalized weakness and fatigue. is not able to take care of her anymore patient is lethargic to the point that she is not able to ambulate without any assistance. As per the she snores a lot and will need sleep study, is trying to sleep in a different room because of her excessive snoring. In the ER she has mild leukocytosis, she has no strength at all to get out of bed on her own. Hospitalist team was requested admit the patient patient may need short-term rehab before she returns home. Her TSH is still high but she has not taken new dose for at least 6 weeks to rely on TSH at this point, she does have compensated hypercapnic chronic respiratory failure Patient is stating that she is not sure why she was sent to the hospital stating that she might not agree for usp placement because they are trying to arrange for him to take care of her. She was able to tell me her name, date of name of the president Review of Systems 2 Const: Reports: change in weight; Denies: fever(s) Eyes: Denies: change in vision ENMT: Denies: throat pain Card: Denies: chest pain Resp: Reports: dyspnea GI: Denies: abdominal pain : Denies: flank pain Musc: Denies: neck pain Medications/Allergies Home Medications Medication Instructions Recorded Confirmed Last Taken Type hydrocodone 10 mg-acetaminophen 1 tab PO QID PRN Pain 01/11/21 03/05/23 01/11/21 06:00 History 325 mg tablet metformin 500 mg tablet,extended 500 mg PO BID 01/11/21 03/05/23 01/11/21 06:00 History release 24 hr pramipexole 0.5 mg tablet 0.5 mg PO BEDTIME 01/11/21 03/05/23 01/10/21 History docusate sodium 100 mg capsule 100 mg PO BID 03/02/21 03/05/23 Unknown History insulin aspart U-100 100 unit/mL See Rx Instructions .Route .COMPLEX 03/02/21 03/05/23 Unknown History (3 mL) subcutaneous pen (Novolog FlexPen U-100 Insulin aspart) insulin detemir U-100 100 unit/mL 30 unit SUBCUT BEDTIME 03/02/21 03/05/23 Unknown History subcutaneous solution (Levemir U-100 Insulin) furosemide 20 mg tablet 20 mg PO DAILY #100 tabs 04/04/22 03/05/23 Unknown Rx nitroglycerin 0.4 mg sublingual 0.4 mg sublingual Q5M PRN chest 04/04/22 03/05/23 Unknown Rx tablet pain #50 tabs potassium chloride 10 mEq 10 meq PO DAILY #100 tabs 04/04/22 03/05/23 Unknown Rx tablet,extended release omeprazole 40 mg capsule,delayed 40 mg PO DAILY 09/11/22 03/05/23 Unknown History release tizanidine 4 mg tablet 4 mg PO BEDTIME 30 days #30 tabs 09/12/22 03/05/23 Unknown Rx amlodipine 5 mg tablet 5 mg PO DAILY #30 tabs 02/06/23 03/05/23 Unknown Rx isosorbide mononitrate 60 mg 60 mg PO DAILY #90 tabs 02/06/23 03/05/23 Unknown Rx tablet,extended release 24 hr diphenhydramine HCl 25 mg tablet 25 mg PO BEDTIME 03/05/23 03/05/23 Unknown History duloxetine 60 mg capsule,delayed 60 mg PO DAILY 03/05/23 03/05/23 Unknown History release lactobacillus combination no.4 3 3,000 mmu cells PO DAILY 03/05/23 03/05/23 Unknown History billion cell capsule (Probiotic) myrxqkod-cbceet-cjtls extract 5 1 cap PO BID 03/05/23 03/05/23 Unknown History mg-6 mg-150 mg capsule (Fruit and Vegetable Daily) melatonin 10 mg PO BEDTIME PRN Sleep 03/05/23 03/05/23 Unknown History niacin 100 mg tablet 100 mg PO BEDTIME 03/05/23 03/05/23 Unknown History simethicone 125 mg tablet 125 mg PO DAILY 03/05/23 03/05/23 Unknown History levofloxacin 500 mg tablet 500 mg PO DAILY@0600 5 days #5 tabs 03/08/23 Unknown Rx levothyroxine 137 mcg capsule 137 mcg PO DAILY #30 caps 03/08/23 Unknown Rx metoprolol succinate 25 mg See Rx Instructions .Route 03/08/23 03/05/23 Unknown Rx tablet,extended release 24 hr .COMPLEX 30 days #180 tabs Allergies Allergy/AdvReac Type Severity Reaction Status Date / Time DAVID Inhibitors Allergy swelling Verified 02/06/23 15:49 atorvastatin [From Lipitor] Allergy swelling Verified 02/06/23 15:49 ezetimibe [From Zetia] Allergy muscle Verified 02/06/23 15:49 weakness lisinopril Allergy swelling Verified 02/06/23 15:49 milnacipran [From Savella] Allergy swelling Verified 02/06/23 15:49 simvastatin [From Zocor] Allergy muscle Verified 02/06/23 15:49 weakness Ccxfkcj-LHX-IsI Reductase Allergy swelling, Verified 02/06/23 15:49 Inhibitor muscle weakness All meds for Fibromyalgia Allergy Intermediate Unknown Uncoded 02/06/23 15:49 PFSH Acute 2 PFSH: Medical History At risk for polypharmacy Acute hypotension AMS (altered mental status) UTI (urinary tract infection) Aphthous ulcer of mouth Weakness Arthralgia Hiatal hernia Fatigue Bilateral leg cramps Vitamin D deficiency Hypothyroidism Fibromyalgia Hypertension Hx of type 2 diabetes mellitus Tachycardia Restless leg syndrome GERD (gastroesophageal reflux disease) Dyspnea Anemia Abnormal stress test Surgical History Hx of repair of left rotator cuff History of carpal tunnel release History of back surgery x 2 History of repair of hiatal hernia History of surgery on wrist Hx of varicose vein ligation Hx of neck surgery Hx of tubal ligation Family History Father Diabetes CAD (coronary artery disease) Hypertension Brother Diabetes Suicide Grandfather Diabetes CAD (coronary artery disease) Grandmother Diabetes CAD (coronary artery disease) Family/Other Diabetes CAD (coronary artery disease) Mother CAD (coronary artery disease) Denies family history of Clotting disorder Dementia Chronic kidney disease (CKD) Anesthesia complication Bleeding disorder Lung disease Cancer Stroke Social History Smoking and tobacco/nicotine status: former use of tobacco/nicotine Alcohol intake: never Substance/Drug Use: never Vitals/I&O/Wt Last Vital Signs Temp 98.5 F 03/12/23 20:16 Pulse 85 03/12/23 22:27 Resp 24 H 03/12/23 21:05 BP 148/99 03/12/23 22:27 Pulse Ox 98 03/12/23 22:27 O2 Del Method Nasal Cannula 03/12/23 22:27 O2 Flow Rate 2 03/12/23 22:27 Weight last 48 hrs Weight 127.006 kg Physical Exam 2 Narrative: Morbidly obese female Lethargic and fatigued Showing signs of hypothyroidism No active chest pain or shortness of breath Currently on 2 L Hemodynamically stable Abdomen distended nontender Pleasant and cooperative Nonfocal neuroexam at the bedside Urinary Catheter Management: Saucedo: Cath Placed During This Visit: yes Urinary Catheter Date of Insertion: 03/12/23 Urinary Catheter Time of Insertion: 20:10 Data 03/12/23 22:25 03/12/23 22:25 Micro: Microbiology 03/12/23 22:20 Blood Culture - Preliminary Blood SPECIMEN COLLECTED 03/12/23 22:20 Blood Culture - Preliminary Blood SPECIMEN COLLECTED A&P Assessment and plan (1) Hypertension: (2) Hx of type 2 diabetes mellitus: (3) Hypothyroidism: (4) Myxedema coma: (5) Anemia: Qualifiers: Anemia type: unspecified type Qualified Code(s): D64.9 - Anemia, unspecified (6) Dyspnea: Qualifiers: Dyspnea type: unspecified Qualified Code(s): R06.00 - Dyspnea, unspecified (7) Obstructive sleep apnea: Plan Generalized weakness and fatigue Untreated hypothyroidism Untreated sleep apnea Compensated hypercapnia chronic respiratory failure I do believe patient will need short-term rehab before she returns home I will give her 6 weeks to get another TSH however it is going right direction at this point Monitor her respiratory status closely Admit to [facility] Recently she was treated for UTI as well, no active signs of infection Patient is diabetic as well Will keep her on subcutaneous insulin with sliding scale Continue levothyroxine Will need physical therapy in the morning Attestations 2 Medical Necessity Statement*: Anticipating discharge within 48 hours Diagnoses Hypertension I10 Hx of type 2 diabetes mellitus Z86.39 Hypothyroidism E03.9 Myxedema coma E03.5 Anemia, unspecified type D64.9 Anemia type: unspecified type Dyspnea, unspecified type R06.00 Dyspnea type: unspecified Obstructive sleep apnea G47.33
[2023-03-12 23:49] LABS: NT Pro B Type Natriuretic Pept 78 pg/mL (0-450)
[2023-03-13] VITALS (13 sets, daily range): BP systolic 111–165; BP diastolic 70–90; PULSE 80–94; RESP 16–22; TEMP 36.3–37; O2SAT 92–97
[2023-03-13] MEDS: piperacillin-tazobactam 4.5 GM in sodium chloride 0.9% (plus) 50 ML IV (00:54)
[2023-03-13] MEDS: vancomycin 1,250 MG/250 ML PIGGYBACK 250 MG IV (00:54)
[2023-03-13] MEDS: ondansetron 2 mg/ML SDV 2 mL 4 MG IVP (04:19)
[2023-03-13 05:20] LABS: Basophils % 0.4 %; Eosinophils # 0.3 10^3/uL (0.0-0.8); Hematocrit 32.3 % (36-47); Lymphocytes # 1.8 10^3/uL (0.8-4.8); Lymphocytes % 16.8 %; Mean Corpuscular Hemoglobin 31.1 pg (27-33); Mean Corpuscular Volume 100.3 fl (85-98); Mean Platelet Volume 9.3 fL (7.4-10.4); Monocytes # 1.1 10^3/uL (0.2-0.9); Monocytes % 10.8 %; Neutrophils # 7.06 10^3/uL (1.8-7.7); Neutrophils % 67.9 %; Nucleated Red Blood Cells % 0 %; Platelet Count 219 10^3/cmm (157-399); Red Blood Count 3.22 10^6/uL (3.85-5.65); Red Cell Distribution Width 12.8 % (12.1-15.1); White Blood Count 10.39 10^3/uL (3.29-11.43)
[2023-03-13 05:43] LABS: Blood Urea Nitrogen 14 mg/dL (8-23); C Reactive Protein 52.4 mg/L (0.0-4.9); Calcium 8.6 mg/dL (8.5-10.5); Carbon Dioxide 30 mmol/L (22-29); Chloride 99 mmol/L (98-107); Glucose 284 mg/dL (65-115); Magnesium 1.7 mg/dL (1.7-2.3); Osmolality Calculated 295 mOsm/kg (285-295); Sodium 137 mmol/L (136-145)
[2023-03-13 05:44] LABS: Anion Gap 12.6 (5-19); Potassium 4.6 mmol/L (3.5-5.1)
[2023-03-13] MEDS: levothyroxine 137 mcg Tablet PO (05:47)
[2023-03-13] MEDS: levoFLOXacin 500 mg Tablet PO (05:47)
[2023-03-13 06:34] LABS: Glucose Point of Care 320 mg/dL (70-110)
--- NOTE | 2023-03-13 07:35 | ECG_ITS ---
[facility] Test Date: 2023-03-13 Pat Name: Sadaf Anderson Department: Room: 252 Gender: Female Bell Spinner: : 1945 Requested By: Casper Clarke Order Number: [id number] Huy MD: Chip Riley M.D. Measurements Intervals [place] Rate: 85 P: 14 NV: 163 QRS: -1 QRSD: 88 T: 8 QT: 364 QTc: 434 Interpretive Statements SINUS RHYTHM WITH OCCASIONAL SUPRAVENTRICULAR PREMATURE COMPLEXES LOW QRS VOLTAGE IN PRECORDIAL LEADS [QRS DEFLECTION < 1.0 mV IN CHEST LEADS] POSSIBLE ANTERIOR MYOCARDIAL INFARCTION , PROBABLY OLD [30 ms Q WAVE IN V3/V4, OR R < 0.2 mV IN V4] Compared to ECG 03/12/2023 21:21:55 Myocardial infarct finding now present Electronically Signed On 03-13-2023 17:39:37 LAB SUPPORT TECH by Chip Riley M.D. [id number]
[2023-03-13] MEDS: alum-mag-hydroxide-sime 30 mL UDC PO (07:58)
[2023-03-13] MEDS: pantoprazole DR 40 mg Tablet PO ×2 (07:58→17:03)
[2023-03-13] MEDS: amlodipine 5 mg Tablet PO (07:58)
[2023-03-13] MEDS: acetaminophen 500 mg Tablet PO ×3 (07:58→22:06)
[2023-03-13] MEDS: metoprolol succinate ER (24 HR) 25 mg Tablet PO ×2 (07:59→17:03)
--- NOTE | 2023-03-13 08:08 | P.PN_ITS ---
Documented by User: JUAN Bailey STDJALEN 03/13/23 11:00 Subjective 2 Subjective: Patient resting in bed this am, noted to be on 2L NC. Patient does not wear oxygen at home. Mrs. Anderson complains of chest pain and some shortness of breath that she describes a heart burn that she often gets at home. EKG ordered. Medications: Reviewed: Yes Vitals/I&O/Wt Last Vital Signs Temp 98.5 F 03/12/23 20:16 Pulse 83 03/13/23 01:06 Resp 24 H 03/12/23 21:05 BP 148/99 03/12/23 22:27 Pulse Ox 97 03/13/23 01:06 O2 Del Method Nasal Cannula 03/13/23 04:35 O2 Flow Rate 2 03/12/23 22:27 03/12/23 03/13/23 03/13/23 22:59 06:59 14:59 Intake Total 300 / 300 Output Total 500 / 500 Balance -200 / -200 Weight last 48 hrs Weight 280 lb Physical Exam 2 Narrative: General: Alert and oriented, answering questions appropriately Neck: supple, full ROM, no lymphadenopathy. Resp: Lung sounds diminished on auscultation, patient on 2 L nasal cannula. Cardio: no JVD, regular rhythm, regular rate. GI: normoactive bowel sounds, non-tender. Extremities: 1+ pitting edema bilateral lower legs. Neuro: Alert and oriented x 3. Skin: No rashes, or wounds Urinary Catheter Management: Saucedo: Cath Placed During This Visit: yes Reason for Continuing Indwelling Catheter: Other Urinary Catheter Date of Insertion: 03/12/23 Urinary Catheter Time of Insertion: 20:10 Data 03/13/23 04:06 03/13/23 04:06 Other Labs: EKG 03/13: Sinus rhythm w/ occasional supraventricular complexes. HR- 85 Micro: Microbiology 03/12/23 22:20 Blood Culture - Preliminary Blood SPECIMEN COLLECTED 03/12/23 22:20 Blood Culture - Preliminary Blood SPECIMEN COLLECTED A&P Assessment and plan (1) Myxedema coma: Untreated hypothyroidism, Patient not taking home medications regularly. Continue Levothyroxine Will need a 6 week, TSH follow up (2) Dyspnea: Continue oxygen therapy as needed, patient currently on 2L NC. Continue Douneb as needed. Flu test pending Covid test pending Monitor respiratory status closely Patient receiving abx Levaquin, dose changed to 750mg PO dly for pneumonia Qualifiers: Dyspnea type: unspecified Qualified Code(s): R06.00 - Dyspnea, unspecified (3) Anemia: Uncertain of cause, occult stool ordered AM CBC ordered. Qualifiers: Anemia type: unspecified type Qualified Code(s): D64.9 - Anemia, unspecified (4) Hx of type 2 diabetes mellitus: Sliding Scale insulin. ACHS Cardiac Consistent carb diet (5) Obstructive sleep apnea: Untreated sleep apnea, BiPAP orderd. Patient will need outpatient sleep study Plan Will need physical therapy in the morning Coding Level of Care Code 36950 Diagnoses Myxedema coma E03.5 Dyspnea, unspecified type R06.00 Dyspnea type: unspecified Anemia, unspecified type D64.9 Anemia type: unspecified type Hx of type 2 diabetes mellitus Z86.39 Obstructive sleep apnea G47.33 Time Spent (min) 25 Documented by User: Casper Alvarenga MD 03/13/23 11:01 Physical Exam 2 Urinary Catheter Management: Saucedo: Cath Placed During This Visit: yes Data 03/13/23 04:06 03/13/23 04:06 A&P Assessment and plan (1) Myxedema coma: (2) Dyspnea: Continue oxygen therapy as needed, patient currently on 2L NC. Continue Douneb as needed. Flu test pending, I have ordered Covid test pending, I have ordered Monitor respiratory status closely Patient receiving abx Levaquin, dose changed to 750mg PO dly for pneumonia. There is a left lower lobe infiltrate on x-ray Qualifiers: Dyspnea type: unspecified Qualified Code(s): R06.00 - Dyspnea, unspecified (3) Anemia: Uncertain of cause, occult stool ordered AM CBC ordered. Iron studies previously normal. B12 and folate were normal Qualifiers: Anemia type: unspecified type Qualified Code(s): D64.9 - Anemia, unspecified (4) Hx of type 2 diabetes mellitus: (5) Obstructive sleep apnea: Plan Weakness. Initiate physical therapy. Hypertension, restart meds Chronic pain. Tramadol low-dose. Avoid narcotics DVT prophylaxis, SCDs and Lovenox Attestations 2 Medical Necessity Statement*: Needs continued hospital stay, secondary to weakness, close monitoring of probable pneumonia. Diagnoses Myxedema coma E03.5 Dyspnea, unspecified type R06.00 Dyspnea type: unspecified Anemia, unspecified type D64.9 Anemia type: unspecified type Hx of type 2 diabetes mellitus Z86.39 Obstructive sleep apnea G47.33 Time Spent (min) 25
[2023-03-13] MEDS: insulin lispro 100 unit/1 mL SUBCUT ×3 (08:51→17:03)
--- NOTE | 2023-03-13 10:06 | PC.PHAR ---
pt states she takes care of her own medications-pt unsure of all names of her medications-called pts dave no answer [phone]-pt states her norco 10-325mg was decreased to 1 tab tid prn ext shows last filled 03/01/23 25d/s 1 tab po qid prn max 4 tabs per day-pt states she is taking 300mcg daily of levothyroxine rx last filled 03/09/23 dr rojo wrote rx 03/08/23 137mcg daily kassandramart states not covered on insurance and is on hold states pt picked up 300mcg dose-pt states she uses novolog flexpen 14 units tid plus ss ext shows last filled 16 units tid plus ss max of 80 units per day-
[2023-03-13 10:53] LABS: Glucose Point of Care 322 mg/dL (70-110)
[2023-03-13 10:57] LABS: Influenza A by IFA negative (Negative); Influenza B by IFA negative (Negative)
[2023-03-13] MEDS: isosorbide mononitrate ER 60 mg Tablet PO (11:18)
[2023-03-13] MEDS: duloxetine 60 mg Capsule PO (11:18)
[2023-03-13] MEDS: FUROsemide 20 mg Tablet PO (11:19)
[2023-03-13] MEDS: levothyroxine 150 mcg Tablet 300 MCG PO (11:19)
[2023-03-13] MEDS: enoxaparin 40 mg/0.4 mL Syringe SUBCUT (11:19)
[2023-03-13] MEDS: potassium chloride ER 10 mEq Tablet PO (11:19)
[2023-03-13] MEDS: TRAMadol 50 mg Tablet PO ×2 (12:13→20:32)
[2023-03-13 16:53] LABS: Glucose Point of Care 236 mg/dL (70-110)
[2023-03-13] MEDS: pramipexole 0.25 mg Tablet 0.5 MG PO (20:32)
[2023-03-13 20:50] LABS: Glucose Point of Care 251 mg/dL (70-110)
[2023-03-13] MEDS: tizanidine 4 mg Tablet PO (22:06)
[2023-03-13] MEDS: insulin glargine 100 units/1 mL 30 UNIT SUBCUT (22:07)
[2023-03-14] VITALS (9 sets, daily range): BP systolic 94–131; BP diastolic 55–74; PULSE 71–91; RESP 16–18; TEMP 36.4–37.1; O2SAT 93–98
--- NOTE | 2023-03-14 05:57 | PC.NURSE ---
Patient drowsy. Patient refusing PO medications. Patient has equal clerk checker bilaterally. Charge nurse to room to try to get patient to takes medications and patient states no. PO medications retimed for later time to attempt again later.
[2023-03-14 05:58] LABS: Glucose Point of Care 271 mg/dL (70-110)
[2023-03-14 06:21] LABS: Glucose Point of Care 265 mg/dL (70-110)
[2023-03-14 06:33] LABS: Basophils % 0.3 %; Eosinophils # 0.4 10^3/uL (0.0-0.8); Eosinophils % 3.7 %; Hematocrit 30.4 % (36-47); Lymphocytes # 1.6 10^3/uL (0.8-4.8); Lymphocytes % 14.9 %; Mean Corpuscular HGB Conc 31.3 g/dL (30-55); Mean Corpuscular Hemoglobin 30.8 pg (27-33); Mean Corpuscular Volume 98.7 fl (85-98); Mean Platelet Volume 8.8 fL (7.4-10.4); Monocytes # 1.4 10^3/uL (0.2-0.9); Monocytes % 12.9 %; Neutrophils % 67.5 %; Nucleated Red Blood Cells % 0 %; Platelet Count 209 10^3/cmm (157-399); Red Blood Count 3.08 10^6/uL (3.85-5.65); Red Cell Distribution Width 12.3 % (12.1-15.1); White Blood Count 10.97 10^3/uL (3.29-11.43)
[2023-03-14 06:55] LABS: Alanine Aminotransferase 16 U/L (0-33); Albumin Level 3.6 g/dL (3.5-5.2); Alkaline Phosphatase 68 U/L (35-105); Anion Gap 10.7 (5-19); Aspartate Amino Transferase 16 U/L (0-32); Blood Urea Nitrogen 10 mg/dL (8-23); Calcium 8.9 mg/dL (8.5-10.5); Carbon Dioxide 35 mmol/L (22-29); Chloride 91 mmol/L (98-107); Globulin 2.3 g/dL (1.3-4.6); Glucose 267 mg/dL (65-115); Osmolality Calculated 282 mOsm/kg (285-295); Potassium 4.7 mmol/L (3.5-5.1); Sodium 132 mmol/L (136-145); Total Bilirubin 0.4 mg/dL (0.15-1.2); Total Protein 5.9 g/dL (6.6-8.7)
[2023-03-14] MEDS: levoFLOXacin 750 mg Tablet PO (08:37)
[2023-03-14] MEDS: duloxetine 60 mg Capsule PO (08:37)
[2023-03-14] MEDS: levothyroxine 150 mcg Tablet 300 MCG PO (08:38)
[2023-03-14] MEDS: pantoprazole DR 40 mg Tablet PO ×2 (08:38→17:48)
[2023-03-14] MEDS: amlodipine 5 mg Tablet PO (08:38)
[2023-03-14] MEDS: levothyroxine 137 mcg Tablet PO (08:38)
[2023-03-14] MEDS: metoprolol succinate ER (24 HR) 25 mg Tablet PO ×2 (08:38→17:47)
[2023-03-14] MEDS: FUROsemide 20 mg Tablet PO (08:38)
--- NOTE | 2023-03-14 09:09 | PC.CHAP ---
Pastoral Care Encounter/Spiritual Assessment Type of Contact [] Declined dental insurance coordinator visit [] Patient/Family/Request visit [] Outpatient visit [] Follow-up visit [] Physician referral [] Code/Alert [] Routine visit [] Staff referral [] Actively dying [] Patient sleeping [] Family support [] [] Out of room [] Palliative care [] [x] Receiving care in room [] Pre-surgical visit [] Trauma [] Long length of stay [] ICU visit [] Other: Relational/Emotional Strength [] Patient feels connected with others/family/visitors/staff [] Distress [] Loneliness/isolation [] Abandonment Spirituality of Patient [] Person of [place] [] Attends Mu-Ism of their [place] [] Believes in Prayer [] Reads Bible or Anabaptism materials [] There are Spiritual issues to be addressed Pattern Marker Interventions [] Prayer [] Active listening [] Non-anxious presence [] Spiritual/emotional support [] Crisis/trauma care [] Spiritual counseling [] Bereavement support [] Provided bereavement packet [] Provided Bible/devotional materials [] Provided toy/stuffed animal, coloring book to patient or family member [] Provided Communion [] Anointing/[place] [] Salvation [] Completed spiritual assessment [] Other: Impact on Illness or Injury [] Angry [] Fearful [] Anxious [] Often cries [] Exhaustion [] Unable to work [] Unable to attend advent [] Unable to walk/stand [] Unable to read [] Unable to drive [] Unable to eat/drink [] Unable to sleep [] Unable to be with family [] Patient intubated [] Other: Summary Time spent with patient
--- NOTE | 2023-03-14 09:53 | P.PN_ITS ---
Documented by User: JUAN Bailey STD 03/14/23 10:11 Subjective 2 Subjective: Patient noted to be very drowsy this morning, hard to wake up, on 1 L nasal cannula. nursing staff reported that she received Zanaflex overnight and became very confused. Mrs. Anderson could not remember that her visited yesterday. She was able to tell me her name, date of , and location. Later in the morning, I rounded on Mr. Anderson again after she got up with physical therapy. She was sitting up in a chair eating breakfast. She denies pain at this time, but still cannot remember that her visited yesterday. Medications: Reviewed: Yes Vitals/I&O/Wt Last Vital Signs Temp 98.3 F 03/14/23 07:46 Pulse 83 03/14/23 08:37 Resp 16 03/14/23 08:37 BP 131/73 03/14/23 07:46 Pulse Ox 97 03/14/23 08:37 O2 Del Method Nasal Cannula 03/14/23 08:37 O2 Flow Rate 2 03/14/23 08:37 03/13/23 03/14/23 03/14/23 22:59 06:59 14:59 Intake Total 240 / 600 120 / 720 240 / 240 Output Total 1200 / 2300 Balance 240 / -500 -1080 / -1580 240 / 240 Weight last 48 hrs Weight 280 lb Physical Exam 2 Narrative: General: Alert and oriented x 3, cannot recall last nights events. Neck: supple, full ROM, no lymphadenopathy. Resp: Lung sounds diminished on auscultation, patient on 1 L nasal cannula. Cardio: no JVD, regular rhythm, regular rate. GI: normoactive bowel sounds, non-tender. Extremities: 1+ pitting edema bilateral lower legs. Neuro: Moves all extremity. Skin: No rashes, or wounds Urinary Catheter Management: Saucedo: Cath Placed During This Visit: yes Reason for Continuing Indwelling Catheter: Other Urinary Catheter Date of Insertion: 03/12/23 Urinary Catheter Time of Insertion: 20:10 Data 03/14/23 06:11 03/14/23 06:11 Micro: Microbiology 03/12/23 22:20 Blood Culture - Preliminary Blood NEGATIVE TO DATE 03/12/23 22:20 Blood Culture - Preliminary Blood NEGATIVE TO DATE A&P Assessment and plan (1) Myxedema coma: Untreated hypothyroidism, Patient not taking home medications regularly. Continue Levothyroxine Will need a 6 week, TSH follow up (2) Dyspnea: Continue to wean oxygen requirement down, patient currently on 1L NC. Continue Douneb as needed. Flu test- negative Covid PCR test pending. Continue Levaquin 750mg PO dly for pneumonia. There is a left lower lobe infiltrate on x-ray on 03/12 Qualifiers: Dyspnea type: unspecified Qualified Code(s): R06.00 - Dyspnea, unspecified (3) Anemia: Uncertain of cause, occult stool ordered AM CBC ordered. Iron studies previously normal. B12 and folate were normal Qualifiers: Anemia type: unspecified type Qualified Code(s): D64.9 - Anemia, unspecified (4) Hx of type 2 diabetes mellitus: Continue Sliding Scale insulin. ACHS Cardiac Consistent carb diet (5) Obstructive sleep apnea: Untreated sleep apnea, BiPAP orderd. Patient will need outpatient sleep study Plan Weakness. Continue physical therapy. Hypertension, continue meds. Discontinued Zanaflex 03/14 due to increased confusion. Chronic pain. Tramadol low-dose. Avoid narcotics DVT prophylaxis, SCDs and Lovenox Coding Level of Care Code 19787 Diagnoses Myxedema coma E03.5 Dyspnea, unspecified type R06.00 Dyspnea type: unspecified Anemia, unspecified type D64.9 Anemia type: unspecified type Hx of type 2 diabetes mellitus Z86.39 Obstructive sleep apnea G47.33 Time Spent (min) 24 Documented by User: Casper Alvarenga MD 03/14/23 11:04 Physical Exam 2 Narrative: General: Alert and oriented x 3, cannot recall last nights events. Neck: supple, full ROM, no lymphadenopathy. Resp: Lung sounds diminished on auscultation, patient on 1 L nasal cannula. Cardio: no JVD, regular rhythm, regular rate. GI: normoactive bowel sounds, non-tender. Extremities: 1+ pitting edema bilateral lower legs. Neuro: Moves all extremity. No focal deficits Skin: No rashes, or wounds Urinary Catheter Management: Saucedo: Cath Placed During This Visit: yes Data 03/14/23 06:11 03/14/23 06:11 A&P Assessment and plan (1) Myxedema coma: (2) Dyspnea: Qualifiers: Dyspnea type: unspecified Qualified Code(s): R06.00 - Dyspnea, unspecified (3) Anemia: Qualifiers: Anemia type: unspecified type Qualified Code(s): D64.9 - Anemia, unspecified (4) Hx of type 2 diabetes mellitus: (5) Obstructive sleep apnea: Plan Pneumonia. Placed on p.o. Levaquin weakness. Continue physical therapy. Hypertension, continue meds. Discontinued Zanaflex 03/14 due to increased confusion. Chronic pain. Tramadol low-dose. Avoid narcotics Confusion. This could represent acute encephalopathy, delirium, CO2 narcosis following muscle relaxant, medication effect. Either way discontinue tizanidine and monitor. DVT prophylaxis, SCDs and Lovenox Attestations 2 Medical Necessity Statement*: Needs continued hospitalization for close monitoring of pneumonia with treatment with oral antibiotics, concern of confusion consistent with acute encephalopathy versus delirium versus dementia with sundowning, for adjustment of medication Diagnoses Myxedema coma E03.5 Dyspnea, unspecified type R06.00 Dyspnea type: unspecified Anemia, unspecified type D64.9 Anemia type: unspecified type Hx of type 2 diabetes mellitus Z86.39 Obstructive sleep apnea G47.33 Time Spent (min) 24
[2023-03-14] MEDS: isosorbide mononitrate ER 60 mg Tablet PO (10:04)
[2023-03-14] MEDS: insulin lispro 100 unit/1 mL SUBCUT ×3 (10:04→17:47)
[2023-03-14] MEDS: enoxaparin 40 mg/0.4 mL Syringe SUBCUT (10:05)
[2023-03-14 10:55] LABS: Glucose Point of Care 329 mg/dL (70-110)
[2023-03-14 14:37] LABS: Adenovirus Detected (NOT DETECT); Chlamydia Pneumoniae Not Detected (NOT DETECT); Coronavirus 229E,HKU1,NL63,OC4 Not Detected (NOT DETECT); Human Metapneumovirus Not Detected (NOT DETECT); Human Rhinovirus/Enterovirus Not Detected (NOT DETECT); Influenza A Not Detected (NOT DETECT); Influenza A H1 Not Detected (NOT DETECT); Influenza A H1-2009 Not Detected (NOT DETECT); Influenza A H3 Not Detected (NOT DETECT); Influenza B Not Detected (NOT DETECT); Mycoplasma Pneumoniae Not Detected (NOT DETECT); Parainfluenza Virus Type 1 Not Detected (NOT DETECT); Parainfluenza Virus Type 2 Not Detected (NOT DETECT); Parainfluenza Virus Type 3 Not Detected (NOT DETECT); Parainfluenza Virus Type 4 Not Detected (NOT DETECT); Respiratory Syncytial Virus A Not Detected (NOT DETECT); Respiratory Syncytial Virus B Not Detected (NOT DETECT); SARS-COV-2 Not Detected (NOT DETECT)
[2023-03-14 14:37] LABS: Adenovirus Detected (NOT DETECT); Results from Genmark
[2023-03-14 16:50] LABS: Glucose Point of Care 238 mg/dL (70-110)
[2023-03-14] MEDS: TRAMadol 50 mg Tablet PO (20:08)
[2023-03-14] MEDS: pramipexole 0.25 mg Tablet 0.5 MG PO (20:08)
[2023-03-14] MEDS: insulin glargine 100 units/1 mL 30 UNIT SUBCUT (20:25)
[2023-03-14 20:31] LABS: Glucose Point of Care 322 mg/dL (70-110)
[2023-03-15] VITALS (7 sets, daily range): BP systolic 122–143; BP diastolic 71–78; PULSE 83–95; RESP 16–18; TEMP 36.4–36.9; O2SAT 88–94
[2023-03-15] MEDS: levoFLOXacin 750 mg Tablet PO (04:54)
[2023-03-15] MEDS: levothyroxine 137 mcg Tablet PO (04:55)
[2023-03-15] MEDS: levothyroxine 150 mcg Tablet 300 MCG PO (04:55)
[2023-03-15 04:57] LABS: Basophils # 0.1 10^3/uL (0.0-0.1); Basophils % 0.5 %; Eosinophils # 0.4 10^3/uL (0.0-0.8); Eosinophils % 3.7 %; Hematocrit 29.9 % (36-47); Lymphocytes # 1.7 10^3/uL (0.8-4.8); Lymphocytes % 16.6 %; Mean Corpuscular HGB Conc 31.1 g/dL (30-55); Mean Corpuscular Hemoglobin 30.7 pg (27-33); Mean Corpuscular Volume 98.7 fl (85-98); Mean Platelet Volume 8.8 fL (7.4-10.4); Monocytes # 1.3 10^3/uL (0.2-0.9); Monocytes % 13.2 %; Neutrophils # 6.62 10^3/uL (1.8-7.7); Neutrophils % 65.2 %; Nucleated Red Blood Cells % 0 %; Platelet Count 214 10^3/cmm (157-399); Red Blood Count 3.03 10^6/uL (3.85-5.65); Red Cell Distribution Width 12.3 % (12.1-15.1); White Blood Count 10.16 10^3/uL (3.29-11.43)
[2023-03-15 05:20] LABS: Anion Gap 10.2 (5-19); Blood Urea Nitrogen 11 mg/dL (8-23); Calcium 9.2 mg/dL (8.5-10.5); Carbon Dioxide 36 mmol/L (22-29); Chloride 93 mmol/L (98-107); Glucose 230 mg/dL (65-115); Magnesium 1.8 mg/dL (1.7-2.3); Osmolality Calculated 287 mOsm/kg (285-295); Potassium 4.2 mmol/L (3.5-5.1); Sodium 135 mmol/L (136-145)
[2023-03-15 06:32] LABS: Glucose Point of Care 252 mg/dL (70-110)
[2023-03-15] MEDS: amlodipine 5 mg Tablet PO (08:53)
[2023-03-15] MEDS: duloxetine 60 mg Capsule PO (08:53)
[2023-03-15] MEDS: metoprolol succinate ER (24 HR) 25 mg Tablet PO (08:53)
[2023-03-15] MEDS: FUROsemide 20 mg Tablet PO (08:53)
[2023-03-15] MEDS: isosorbide mononitrate ER 60 mg Tablet PO (08:53)
[2023-03-15] MEDS: pantoprazole DR 40 mg Tablet PO (08:53)
[2023-03-15] MEDS: insulin lispro 100 unit/1 mL SUBCUT ×2 (08:53→11:54)
--- NOTE | 2023-03-15 10:41 | P.DS_ITS ---
Discharge Providers Date of Admission: 03/13/23 08:04 Date of Discharge: March 15, 2023 Attending Provider at Admission: Luis Brady MD Attending Provider at Discharge: Casper Alvarenga MD Primary Care Provider: Lashae Alvarenga MD Diagnoses at Discharge Discharge Diagnosis (1) Myxedema coma: Status: Acute (2) Dyspnea: Status: Acute Qualifiers: Dyspnea type: unspecified Qualified Code(s): R06.00 - Dyspnea, unspecified (3) Anemia: Status: Acute Qualifiers: Anemia type: unspecified type Qualified Code(s): D64.9 - Anemia, unspecified (4) Hx of type 2 diabetes mellitus: Status: Acute (5) Obstructive sleep apnea: Status: Suspected Permanent problem details: Suspected. Should have sleep study. Reason for Visit Reason for Visit: lethargic Hospital Course Hospital Course Sadaf is a 77-year-old white female who presented the hospital with weakness, and concern of pneumonia. She was also confused at times. She was placed in the hospital on oral antibiotics. Sedating medications were held. Physical therapy worked with her regarding weakness. With these treatments, she had gradual improvement. Eventually, viral studies demonstrated adenovirus. Weakness impro tray with holding Zanaflex and hydrocodone. By March 15 and she was much improved and wanting to go home. She refused nursing facility placement. We discussed the need for sleep study as an outpatient, avoiding all sedating medications with the exception of occasional tramadol for pain. She will follow-up with her primary care provider tomorrow. Her and her were given opportunity ask questions, and agreed with the plan. Home oxygen evaluation will be done prior to discharge. Physical Exam Narrative: General exam no distress Neck is supple Cardiovascular regular rhythm Lungs diminished breath sounds bilaterally but clear Abdomen is soft Extremities no cyanosis clubbing or edema Urinary Catheter Management: Saucedo: Cath Placed During This Visit: yes Reason for Continuing Indwelling Catheter: Other Urinary Catheter Date of Insertion: 03/12/23 Urinary Catheter Time of Insertion: 20:10 Discharge Data Studies Completed and Pending Completed Studies During Hospitalization Category Date Time Status CT head wo con* [id number] Stat Cat Scan 03/12/23 20:31 Completed XR chest 1V portable [id number] Stat Exams 03/12/23 20:32 Completed Pending at discharge Category Date Time Status Blood Culture Stat Lab 03/12/23 22:20 Results Fecal Occult Blood [Immunochemical Fecal OCB] Routine Lab 03/13/23 07:58 Ordered Radiology Impressions Head CT 03/12/23 20:31 IMPRESSION: No acute intracranial abnormality. Chest X-Ray 03/12/23 20:32 IMPRESSION: The lungs are hypoinflated. There is a left lower lobe infiltrate or atelectasis present. Correlate for infection. Laboratory Results WBC 10.16 10^3/uL (3.29-11.43) 03/15/23 04:22 RBC 3.03 10^6/uL (3.85-5.65) L 03/15/23 04:22 Hgb 9.30 g/dL (11.27-16.99) L 03/15/23 04:22 Hct 29.9 % (36-47) L 03/15/23 04:22 MCV 98.7 fl (85-98) H 03/15/23 04:22 MCH 30.7 pg (27-33) 03/15/23 04:22 MCHC 31.1 g/dL (30-55) 03/15/23 04:22 RDW 12.3 % (12.1-15.1) 03/15/23 04:22 Plt Count 214 10^3/cmm (157-399) 03/15/23 04:22 MPV 8.8 fL (7.4-10.4) 03/15/23 04:22 Neut % (Auto) 65.2 % 03/15/23 04:22 Lymph % (Auto) 16.6 % 03/15/23 04:22 [place] % (Auto) 13.2 % 03/15/23 04:22 Eos % (Auto) 3.7 % 03/15/23 04:22 Baso % (Auto) 0.5 % 03/15/23 04:22 Neut # (Auto) 6.62 10^3/uL (1.8-7.7) 03/15/23 04:22 Lymph # (Auto) 1.7 10^3/uL (0.8-4.8) 03/15/23 04:22 [place] # (Auto) 1.3 10^3/uL (0.2-0.9) H 03/15/23 04:22 Eos # (Auto) 0.4 10^3/uL (0.0-0.8) 03/15/23 04:22 Baso # (Auto) 0.1 10^3/uL (0.0-0.1) 03/15/23 04:22 Nucleated RBC % (auto) 0 % 03/15/23 04:22 Nucleated RBCs # 0.0 /100WBC 03/15/23 04:22 Specimen Type Arterial 03/12/23 20:52 Sample Site Radial, right 03/12/23 20:52 ABG pH 7.36 (7.35-7.45) 03/12/23 20:52 ABG pCO2 55.0 mmHg (35-45) H 03/12/23 20:52 ABG pO2 61.5 mmHg (80.0-100.0) L 03/12/23 20:52 ABG PO2/FiO2 Ratio 0 03/12/23 20:52 ABG HCO3 31.0 mmol/L (22-26) H 03/12/23 20:52 ABG Base Excess 4.5 mmol/L (-2.0-2.0) H 03/12/23 20:52 Marlon Test Pos 03/12/23 20:52 Hematocrit 31.1 % (37-47) L 03/12/23 20:52 Hgb O2 Saturation 88.1 % (95-100) L 03/12/23 20:52 Carboxyhemoglobin 0.3 %THgb (0.4-20.1) L 03/12/23 20:52 Methemoglobin 0.5 % (0.4-1.5) 03/12/23 20:52 Total Hemoglobin 10.1 g/dL (12-16) L 03/12/23 20:52 O2 Delivery Device Room air 03/12/23 20:52 FiO2 21.0 % 03/12/23 20:52 Probate Paralegal ID [place]ro 03/12/23 20:52 Sodium 135 mmol/L (136-145) L 03/15/23 04:22 Potassium 4.2 mmol/L (3.5-5.1) 03/15/23 04:22 Chloride 93 mmol/L (98-107) L 03/15/23 04:22 Carbon Dioxide 36 mmol/L (22-29) H 03/15/23 04:22 Anion Gap 10.2 (5-19) 03/15/23 04:22 BUN 11 mg/dL (8-23) 03/15/23 04:22 Creatinine 0.5 mg/dL (0.5-0.9) 03/15/23 04:22 GFR Calculation Not Reportable 03/15/23 04:22 Glucose 230 mg/dL (65-115) H 03/15/23 04:22 POC Glucose 252 mg/dL (70-110) H 03/15/23 06:27 Calculated Osmolality 287 mOsm/kg (285-295) 03/15/23 04:22 Lactic Acid 1.5 mmol/L (0.5-2.2) 03/12/23 22:25 Calcium 9.2 mg/dL (8.5-10.5) 03/15/23 04:22 Magnesium 1.8 mg/dL (1.7-2.3) 03/15/23 04:22 Total Bilirubin 0.4 mg/dL (0.15-1.2) 03/14/23 06:11 AST 16 U/L (0-32) 03/14/23 06:11 ALT 16 U/L (0-33) 03/14/23 06:11 Alkaline Phosphatase 68 U/L (35-105) 03/14/23 06:11 C-Reactive Protein 52.4 mg/L (0.0-4.9) H 03/13/23 04:06 NT-Pro-B Natriuret Pep 78 pg/mL (0-450) 03/12/23 22:25 Total Protein 5.9 g/dL (6.6-8.7) L 03/14/23 06:11 Albumin 3.6 g/dL (3.5-5.2) 03/14/23 06:11 Globulin 2.3 g/dL (1.3-4.6) 03/14/23 06:11 TSH 47.02 uIU/mL (0.27-4.20) H 03/12/23 22:25 Free T4 1.13 ng/dL (0.82-1.77) 03/12/23 22:25 Urine Color Yellow (Yellow) 03/12/23 22:22 Urine Appearance Clear (CLEAR) 03/12/23 22:22 Urine pH 5 (5-7) 03/12/23 22:22 Ur Specific [place] 1.020 (1.005-1.030) 03/12/23 22:22 Urine Protein Neg (Negative) 03/12/23 22:22 Urine Glucose (UA) 2+ (Normal) H 03/12/23 22:22 Urine Ketones Negative (Negative) 03/12/23 22:22 Urine Blood Neg (Negative) 03/12/23 22:22 Urine Nitrate Negative (Negative) 03/12/23 22:22 Urine Bilirubin 1+ (Negative) H 03/12/23 22:22 Urine Urobilinogen Neg mg/dL (Negative) 03/12/23 22:22 Ur Leukocyte Esterase Negative (Negative) 03/12/23 22:22 Adenovirus (PCR) Detected (NOT DETECT) A 03/14/23 14:37 Coronavirus 229E (PCR) Not detected (NOT DETECT) 03/13/23 08:45 Influenza Type A Ag negative (Negative) 03/13/23 08:45 Influenza Type B Ag negative (Negative) 03/13/23 08:45 SARS-CoV-2 (PCR) Not detected (NOT DETECT) 03/13/23 08:45 Vitals Last Vital Signs Temp 98.5 F 03/15/23 07:27 Pulse 95 03/15/23 08:30 Resp 18 03/15/23 08:30 BP 137/78 03/15/23 07:27 Pulse Ox 88 L 03/15/23 10:12 O2 Del Method Nasal Cannula 03/15/23 08:30 O2 Flow Rate 1 03/15/23 10:12 Discharge Plan Discharge Patient Disposition: Home Health Service Condition: Stable Prescriptions: New furosemide 20 mg Tablet 20 mg PO DAILY@0800 Qty: 30 0RF tramadol 50 mg tablet 50 mg PO TID PRN (Reason: pain) Qty: 20 0RF Continued docusate sodium 100 mg capsule 100 mg PO BID PRN (Reason: Constipation) isosorbide mononitrate 60 mg tablet extended release 24 hr 60 mg PO DAILY Qty: 90 0RF Hold Instructions: Resume on 03/15/23. amlodipine 5 mg tablet 5 mg PO DAILY Qty: 30 5RF Hold Instructions: Resume on 03/15/23. nitroglycerin 0.4 mg tablet, sublingual 0.4 mg sublingual Q5M PRN (Reason: chest pain) Qty: 50 3RF Rx Instructions: until response; do not exceed 3 doses per episode potassium chloride 10 mEq tablet extended release 10 meq PO DAILY Qty: 100 3RF pramipexole 0.5 mg tablet 0.5 mg PO BEDTIME metformin 500 mg tablet extended release 24 hr 500 mg PO BID Novolog FlexPen U-100 Insulin 100 unit/mL (3 mL) insulin pen See Rx Instructions .ROUTE .COMPLEX Rx Instructions: 14 units three times a day plus sliding scale as directed Levemir U-100 Insulin 100 unit/mL solution 30 unit SUBCUT BEDTIME omeprazole 40 mg capsule,delayed release(DR/EC) 40 mg PO DAILY simethicone 125 mg Tablet 125 mg PO DAILY PRN (Reason: gas) duloxetine 60 mg capsule,delayed release(DR/EC) 60 mg PO DAILY niacin 100 mg Tablet 100 mg PO QAM Probiotic 3 billion cell Capsule 3,000 mmu cells PO DAILY Rx Instructions: administer with a meal Fruit and Vegetable Daily 5-6-150 mg Capsule 1 cap PO BID levothyroxine 300 mcg tablet 300 mcg PO QAM metoprolol succinate 25 mg tablet extended release 24 hr 25 mg PO BID albuterol sulfate 90 mcg/actuation HFA aerosol inhaler 2 puff INHALATION Q4H PRN (Reason: Wheezing) melatonin 10 mg Tablet 10 mg PO BEDTIME PRN (Reason: Sleep) Discontinued hydrocodone-acetaminophen 10-325 mg tablet 1 tab PO TID MDD 3 tabs PRN (Reason: Pain) diphenhydramine HCl 25 mg Tablet 25 mg PO BEDTIME PRN (Reason: Sleep) levofloxacin 500 mg Tablet 500 mg PO DAILY@0600 5 Days Qty: 5 0RF Rx Instructions: for 5 days (rx filled 03/08/23) tizanidine 4 mg tablet 4 mg PO BEDTIME PRN (Reason: Muscle Spasm) furosemide [Lasix] 20 mg Tablet 20 mg PO DAILY PRN (Reason: Edema) Discharge Orders: Discharge Order (Routine); Ordered 03/15/23 Ordered By: Casper Alvarenga Other Ambulatory Orders: DME: Oxygen (Order) Location: None Selected Ordered By: Casper Alvarenga Referrals: [facility] [Outside] Lashae Alvarenga MD [Primary Care Provider] - 03/16/23 11:00 am Discharge Diet: Usual diet Discharge Activity: Increase activity as tolerated Patient Instructions: Furosemide (By mouth), Tramadol (By mouth), Using Oxygen at Home (GEN), Opioid Safety Activity Restrictions/Additional Instructions: Home oxygen evaluation prior to discharge Use tramadol sparingly Stop muscle relaxant Stop narcotic Consider sleep apnea evaluation as an outpatient Follow-up with your primary care provider tomorrow Discharge Attestations Time Spent in Discharge Care*: greater than 30 min Quality Metrics Clinical Quality Measures [ No reported AMI, CVA or VTE this stay] Coding Level of Care Code 53099 Total time (in minutes) for Discharge: 34 Diagnoses Myxedema coma E03.5 Dyspnea, unspecified type R06.00 Dyspnea type: unspecified Anemia, unspecified type D64.9 Anemia type: unspecified type Hx of type 2 diabetes mellitus Z86.39 Obstructive sleep apnea G47.33
[2023-03-15 11:08] LABS: Glucose Point of Care 360 mg/dL (70-110)
--- NOTE | 2023-03-15 11:34 | PC.SOCIAL ---
IMM Update pg 2 of IMM updated and reviewed w/ patient. Copy provided and copy dated, initialed and placed in chart.
[2023-03-15] MEDS: enoxaparin 40 mg/0.4 mL Syringe SUBCUT (11:54)
== END 2023-03-15 13:00 | disposition home health service (06) | DRG 80 ==
LOC: ER 20:40 → MEDSURG 23:51
PROVIDERS: Admitting Provider Internal Medicine; Emergency Provider Emergency Medicine; PCP Family Medicine; Visit Provider Internal Medicine
DX: E03.5 Myxedema coma (principal); J18.9 Pneumonia, unspecified organism; J96.22 Acute and chronic respiratory failure with hypercapnia; G93.40 Encephalopathy, unspecified; F05 Delirium due to known physiological condition; E03.9 Hypothyroidism, unspecified; M79.7 Fibromyalgia; I10 Essential (primary) hypertension; E11.9 Type 2 diabetes mellitus without complications; G25.81 Restless legs syndrome; K21.9 Gastro-esophageal reflux disease without esophagitis; Z87.891 Personal history of nicotine dependence; D64.9 Anemia, unspecified; G47.33 Obstructive sleep apnea (adult) (pediatric); Z87.440 Personal history of urinary (tract) infections; Z91.148 Patient's other noncompliance with medication regimen for other reason; G89.29 Other chronic pain; Z79.4 Long term (current) use of insulin; B97.0 Adenovirus as the cause of diseases classified elsewhere
CPT/HCPCS: 36415; 36416; 36600; 51702; 70450; 71045; 80048; 80053; 81003; 82805; 82962; 83605; 83735; 83880; 84439; 84443; 85025; 86140; 87040; 87635; 87798; 87804; 93005; 94640; 94760; 96372; 97116; 97162; 97530; G0378; J1650; J1815; J2405; J2543; J3370

== ENCOUNTER 2023-04-06 12:58 | Outpatient (CLI) | payer MEDICARE, OTHER, SELFPAY ==
--- NOTE | 2023-04-06 13:09 | CT_ITS ---
WS: [id number] CT ABDOMEN AND PELVIS WITH CONTRAST HISTORY: LIVER MASS SEEN ON CT CHEST/HEPATOMEGALY TECHNIQUE: Imaging performed of the abdomen and pelvis with IV contrast. Single phase imaging of the abdomen. Coronal and sagittal reformats are submitted. All CT scans at [facility] use at [address] one of these dose optimization techniques: automated exposure control; mA and/or kV adjustment per patient size (includes targeted exams where dose is matched to clinical indication); or iterative re construction. IV CONTRAST: Omnipaque 350; 100 mL IV. Oral contrast: Yes. DLP: 868.28 mGy.cm COMPARISON: Prior noncontrast CT abdomen and pelvis 03/05/2023 Lower thorax: Lung bases are clear. Mildly enlarged heart. Moderate sized hiatal hernia. Liver/biliary system: Liver is abnormal. There is a large simple appearing cyst in the LEFT lobe of t he liver measuring 9.3 x 13.7 cm. There are numerous additional hypoechoic masses scattered througho ut the liver. These masses are in the RIGHT and LEFT lobes of the liver. Largest number in the RIGHT lobe of the liver with the largest confluent mass measuring 4.1 x 3.0 cm. No bile duct dilatation. Th ere is a filling defect at the very central portal vein extending into the splenic portal confluence. Gallbladder: Gallbladder is contracted. Pancreas: Pancreas is abnormal. There is a low-attenuation mass beginning at the neck of the pancreas and extending into the body extending over a length of 5.1 cm x 4.1 cm. This is highly suspicious fo r a pancreatic neoplasm. Pancreatic duct distally is dilated and the pancreatic tail is atrophied. Th e pancreatic head and uncinate process are normal. The pancreatic mass is at least encasing the splen ic vein by 50%. Spleen: Normal size spleen. No mass or infarct. Adrenal glands: Normal. Right kidney: Normal size kidney. There is variable attenuation of the kidney but I suspect this is p robably related to artifact from the patient's spinal hardware and not ischemic disease. Left kidney: Normal. Aorta: Mild atherosclerosis with no aneurysm. Lymphadenopathy: There are a few lymph nodes in the central mesentery near the pancreatic mass. There is also mild stranding through the mesenteric fat. Free fluid: None. GI tract: Nondistended stomach. There is mild circumferential wall thickening involving the antrum of the stomach. This may be due to under distention but there is also pancreatic tumor extension close to the stomach. Abdominal wall: Fat containing umbilical hernia. Pelvis: No free fluid or adenopathy within the pelvis. Unremarkable urinary bladder. Bones: Marked increase in lumbar lordosis. Prior posterior lumbar fusion. Prior vertebral plasties T1 1, T12 and L1. Spinal cord stimulator. IMPRESSION: 1. Abnormal pancreas. Pancreatic mass centered in the body measures 5.1 x 4.1 cm. Distal pancreatic duct is dilated with pancreatic atrophy. Highly suspicious for pancreatic neoplasm. 2. Pancreatic mass extends to abut the antrum of the stomach. There is diffuse circumferential thick ening of the stomach antrum and adjacent tumor extension. The antrum may be thickened due to under di stention but tumor involvement is not excluded on this appearance. 3. 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 There are numerous metastatic sites within the liver along with a benign-appearing large LEFT hepatic cyst. 4. Filling defects in the LEFT portal splenic confluence. Filling defect is closely associated with the pancreatic mass. This may be tumor thrombus or bland thrombus. 5. 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
[2023-04-06] MEDS: iohexol 350 mg/mL 500 mL Btl (per mL) PO (15:05)
[2023-04-06] MEDS: iohexol 350 mg/mL 500 mL Btl (per mL) IV (15:06)
== END 2023-04-06 12:59 | disposition home or self-care (01) ==
LOC: RAD 12:58
PROVIDERS: PCP Family Medicine; Visit Provider Family Medicine
DX: R16.0 Hepatomegaly, not elsewhere classified (principal); K86.9 Disease of pancreas, unspecified
CPT/HCPCS: 74177; Q9967